=== PATIENT | female | born 1960 | race Caucasian/White ===

== ENCOUNTER 2019-09-03 11:21 | Outpatient (CLI) | payer OTHER, SELFPAY ==
[2019-09-03 12:03] LABS: Basophils Absolute Auto 0.05 K/mm3 (0.00-0.10); Basophils Percent Auto 0.7 % (0.0-1.0); Eosinophils Absolute Auto 0.15 K/mm3 (0.02-0.50); Eosinophils Percent Auto 2.1 % (1.0-6.0); Hematocrit 44.5 % (35.0-49.0); Hemoglobin 15.1 g/dL (12.0-15.0); Immature Granulocyte Absolute 0.02 K/mm3 (0.00-0.00); Immature Granulocyte Percent A 0.3 % (0.0-0.0); Lymphocytes Absolute Auto 3.17 K/mm3 (1.10-4.50); Lymphocytes Percent Auto 44.4 % (18.0-42.0); Mean Corpuscular HGB Conc 33.9 g/dL (32.0-36.0); Mean Corpuscular Hemoglobin 31.3 pg (27.0-31.0); Mean Corpuscular Volume 92.3 fL (78.0-102.0); Mean Platelet Volume 9.8 fl (9.2-11.8); Monocytes Absolute Auto 0.49 K/mm3 (0.10-0.90); Monocytes Percent Auto 6.9 % (2.0-11.0); Neutrophils Absolute Auto 3.3 K/mm3 (1.7-7.2); Neutrophils Percent Auto 45.6 % (50.0-70.0); Platelet Count Result 251 K/mm3 (150-420); Red Blood Count 4.82 M/mm3 (4.20-5.40); Red Cell Distribution Width 11.6 % (11.6-14.4); White Blood Count 7.1 K/mm3 (4.8-10.8)
[2019-09-03 12:10] LABS: Creatinine Urine 196.84 mg/dL (40-278)
[2019-09-03 12:13] LABS: Hemoglobin A1C 10.4 % (<5.7)
[2019-09-03 12:14] LABS: MALB Creatinine Ratio 5.5 mg/g (0-30); Microalbumin Urine Random 10.9 mg/L
[2019-09-03 13:35] LABS: Alanine Aminotransferase 35 U/L (14-59); Albumin Level 3.8 g/dL (3.4-5.0); Alkaline Phosphatase 81 U/L (46-116); Anion Gap 11.1 mmol/L (7-16); Aspartate Amino Transferase 42 U/L (15-37); Bilirubin,Total 0.5 mg/dL (0.00-1.00); Blood Urea Nitrogen 10 mg/dL (7-18); Carbon Dioxide 31 mmol/L (21-32); Chloride 100 mmol/L (98-108); Estimated Glomerular Filt Rate > 60; Glucose 196 mg/dL (70-99); Osmolality Calculated 290 mOsm/kg (285-295); Potassium 4.1 mmol/L (3.5-5.1); Sodium 138 mmol/L (136-145); Total Protein 7.1 g/dL (6.4-8.2); Vitamin B12 371 pg/mL (193-986)
== END 2019-09-03 11:22 | disposition home or self-care (01) ==
PROVIDERS: PCP Family Medicine; Visit Provider Family Medicine
DX: E78.2 Mixed hyperlipidemia (principal); E11.65 Type 2 diabetes mellitus with hyperglycemia; M06.9 Rheumatoid arthritis, unspecified
CPT/HCPCS: 36415; 80053; 82043; 82607; 83036; 85025

== ENCOUNTER 2020-05-30 10:30 | Outpatient (CLI) | payer OTHER, SELFPAY | END 2020-05-30 10:31 | disposition home or self-care (01) | LOC: ANHCOVIDVC 10:31 | PROVIDERS: PCP Family Medicine | DX: Z23 Encounter for immunization (principal) | CPT/HCPCS: 0001A; 91300 ==

== ENCOUNTER 2020-06-20 10:30 | Outpatient (CLI) | payer OTHER, SELFPAY | END 2020-06-20 10:31 | disposition home or self-care (01) | LOC: ANHCOVIDVC 10:30 | PROVIDERS: PCP Family Medicine | DX: Z23 Encounter for immunization (principal) | CPT/HCPCS: 0002A; 91300 ==

== ENCOUNTER 2020-10-14 11:41 | Outpatient (CLI) | payer OTHER, SELFPAY ==
[2020-10-14 11:59] LABS: Basophils Absolute Auto 0.06 K/mm3 (0.00-0.10); Basophils Percent Auto 0.7 % (0.0-1.0); Eosinophils Absolute Auto 0.15 K/mm3 (0.02-0.50); Eosinophils Percent Auto 1.8 % (1.0-6.0); Hematocrit 47.4 % (35.0-49.0); Hemoglobin 15.8 g/dL (12.0-15.0); Immature Granulocyte Absolute 0.04 K/mm3 (0.00-0.00); Immature Granulocyte Percent A 0.5 % (0.0-0.0); Lymphocytes Absolute Auto 3.98 K/mm3 (1.10-4.50); Lymphocytes Percent Auto 48.5 % (18.0-42.0); Mean Corpuscular HGB Conc 33.3 g/dL (32.0-36.0); Mean Corpuscular Hemoglobin 31.2 pg (27.0-31.0); Mean Corpuscular Volume 93.7 fL (78.0-102.0); Mean Platelet Volume 9.2 fl (9.2-11.8); Monocytes Absolute Auto 0.53 K/mm3 (0.10-0.90); Monocytes Percent Auto 6.5 % (2.0-11.0); Neutrophils Absolute Auto 3.5 K/mm3 (1.7-7.2); Platelet Count Result 238 K/mm3 (150-420); Red Blood Count 5.06 M/mm3 (4.20-5.40); Red Cell Distribution Width 11.9 % (11.6-14.4); White Blood Count 8.2 K/mm3 (4.8-10.8)
[2020-10-14 12:09] LABS: Creatinine Urine 132.25 mg/dL (40-278); MALB Creatinine Ratio 13.4 mg/g (0-30); Microalbumin Urine Random 17.8 mg/L
[2020-10-14 12:11] LABS: Hemoglobin A1C 8.1 % (<5.7)
[2020-10-14 12:31] LABS: Alanine Aminotransferase 23 U/L (14-59); Albumin Level 3.9 g/dL (3.4-5.0); Alkaline Phosphatase 75 U/L (46-116); Anion Gap 11 mmol/L (8-16); Aspartate Amino Transferase 16 U/L (15-37); Bilirubin,Total 0.4 mg/dL (0.00-1.00); CRP 1.1 mg/dL (0.0-0.9); Calcium 9.2 mg/dL (8.5-10.1); Carbon Dioxide 29 mmol/L (21-32); Chloride 103 mmol/L (98-108); Cholesterol 187 mg/dL (0-200); Estimated Glomerular Filt Rate > 60; Glucose 167 mg/dL (70-99); HDL Direct 64 mg/dL (40-60); LDL Cholesterol Calculated 98 mg/dL (<130); Potassium 4.3 mmol/L (3.5-5.1); Sodium 143 mmol/L (136-145); Total Protein 7.2 g/dL (6.4-8.2); Triglycerides 125 mg/dL (0-150)
[2020-10-14 12:47] LABS: Blood Urea Nitrogen 14 mg/dL (7-18); Osmolality Calculated 300 mOsm/kg (285-295)
[2020-10-14 14:55] LABS: Erythrocyte Sedimentation Rate 15 mm/hr (0-20)
== END 2020-10-14 11:42 | disposition home or self-care (01) ==
PROVIDERS: PCP Family Medicine
DX: M06.09 Rheumatoid arthritis without rheumatoid factor, multiple sites (principal); Z79.899 Other long term (current) drug therapy; E11.65 Type 2 diabetes mellitus with hyperglycemia
CPT/HCPCS: 36415; 80053; 80061; 82043; 83036; 85025; 85652; 86140

== ENCOUNTER 2021-02-24 13:02 | Outpatient (CLI) | payer OTHER, SELFPAY ==
--- NOTE | ~2021-02-24 | XR_ITS ---
EXAMINATION: XR hip BI 2V w AP pelvis EXAM DATE: 02/24/2021 13:56 INDICATION: Pain in hips for years. TECHNIQUE: Each hip imaged independently (separate right and also left hip) 'frog leg' and frontal p rojections for interpretation. Frontal projection pelvis. Comparison is made to prior examination fr 10/31/2014. FINDINGS: No radiographic evidence of hip avascular necrosis. There is mild to moderate symmetric bi lateral hip arthritis . Lumbosacral fusion hardware. There are no acute fractures identified. IMPRESSION: Mild to moderate bilateral hip arthritis. Reviewed, dictated and finalized at location A. 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
--- NOTE | ~2021-02-24 | XR_ITS ---
EXAMINATION: XR shoulder LT min 2V DATE: 02/24/2021 13:57 INDICATION: Left shoulder pain TECHNIQUE: AP internally and externally rotated, AP oblique externally rotated and transscapular Y vi ews of the left shoulder were obtained. COMPARISON: None FINDINGS: Normal alignment. No fracture. Mild glenohumeral osteoarthritis with mild cephalad predominant nonun iform joint space narrowing. Moderate left acromioclavicular osteoarthritis. Partially visualized pos terior spinal fusion with bilateral vertical darwin and pedicle screw fixation beginning in the lower th oracic spine and extending cephalad beyond the inferior margin of the [id number]. Soft tissues are unremarkable. Visualized portions of the lungs are clear. IMPRESSION: Mild glenohumeral and moderate acromioclavicular osteoarthritis. Reviewed, dictated and finalized at location B. 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
[2021-02-24 13:17] LABS: Basophils Absolute Auto 0.05 K/mm3 (0.00-0.10); Basophils Percent Auto 0.7 % (0.0-1.0); Eosinophils Absolute Auto 0.07 K/mm3 (0.02-0.50); Eosinophils Percent Auto 0.9 % (1.0-6.0); Hematocrit 46.2 % (35.0-49.0); Hemoglobin 15.9 g/dL (12.0-15.0); Immature Granulocyte Absolute 0.03 K/mm3 (0.00-0.00); Immature Granulocyte Percent A 0.4 % (0.0-0.0); Lymphocytes Absolute Auto 3.33 K/mm3 (1.10-4.50); Lymphocytes Percent Auto 43.5 % (18.0-42.0); Mean Corpuscular HGB Conc 34.4 g/dL (32.0-36.0); Mean Corpuscular Hemoglobin 31.9 pg (27.0-31.0); Mean Corpuscular Volume 92.6 fL (78.0-102.0); Monocytes Absolute Auto 0.49 K/mm3 (0.10-0.90); Monocytes Percent Auto 6.4 % (2.0-11.0); Neutrophils Absolute Auto 3.7 K/mm3 (1.7-7.2); Neutrophils Percent Auto 48.1 % (50.0-70.0); Platelet Count Result 253 K/mm3 (150-420); Red Blood Count 4.99 M/mm3 (4.20-5.40); Red Cell Distribution Width 11.8 % (11.6-14.4); White Blood Count 7.7 K/mm3 (4.8-10.8)
[2021-02-24 13:44] LABS: Hemoglobin A1C 7.9 % (<5.7)
[2021-02-24 14:13] LABS: Alanine Aminotransferase 19 U/L (14-59); Albumin Level 3.8 g/dL (3.4-5.0); Alkaline Phosphatase 74 U/L (46-116); Anion Gap 11 mmol/L (8-16); Aspartate Amino Transferase 12 U/L (15-37); Bilirubin,Total 0.8 mg/dL (0.00-1.00); Blood Urea Nitrogen 14 mg/dL (7-18); Carbon Dioxide 30 mmol/L (21-32); Chloride 101 mmol/L (98-108); Cholesterol 190 mg/dL (0-200); Estimated Glomerular Filt Rate > 60; Glucose 158 mg/dL (70-99); HDL Direct 58 mg/dL (40-60); LDL Cholesterol Calculated 98 mg/dL (<130); Osmolality Calculated 297 mOsm/kg (285-295); Potassium 4.1 mmol/L (3.5-5.1); Sodium 142 mmol/L (136-145); Total Protein 7.2 g/dL (6.4-8.2); Triglycerides 171 mg/dL (0-150)
== END 2021-02-24 13:03 | disposition home or self-care (01) ==
LOC: CHSLAB 13:05
PROVIDERS: PCP Family Medicine; Visit Provider Physician Assistant Medical
DX: M25.512 Pain in left shoulder (principal); M25.551 Pain in right hip; M25.552 Pain in left hip; E11.9 Type 2 diabetes mellitus without complications; E11.65 Type 2 diabetes mellitus with hyperglycemia; E78.2 Mixed hyperlipidemia; Z79.899 Other long term (current) drug therapy
CPT/HCPCS: 36415; 73030; 73521; 80053; 80061; 83036; 85025

== ENCOUNTER 2021-07-04 13:04 | Outpatient (CLI) | payer OTHER, SELFPAY ==
--- NOTE | ~2021-07-04 | XR_ITS ---
EXAMINATION: XR shoulder RT min 2V DATE: 07/04/2021 13:40 INDICATION: Right shoulder pain. TECHNIQUE: 4 views of right shoulder were obtained. COMPARISON: None. FINDINGS: Bone alignment is normal. No fracture. There is mild osteoarthritis of glenohumeral joint a nd severe osteoarthritis of acromioclavicular joint. There are changes of posterior fusion procedure in thoracic spine. IMPRESSION: 1. Polyarticular osteoarthritis. Reviewed, dictated and finalized at location A.
[2021-07-04 13:34] LABS: Hemoglobin A1C 7.4 % (<5.7)
[2021-07-04 13:58] LABS: Alanine Aminotransferase 18 U/L (14-59); Albumin Level 3.9 g/dL (3.4-5.0); Alkaline Phosphatase 75 U/L (46-116); Anion Gap 9 mmol/L (8-16); Aspartate Amino Transferase 15 U/L (15-37); Bilirubin,Total 0.6 mg/dL (0.00-1.00); Blood Urea Nitrogen 15 mg/dL (7-18); Calcium 9.1 mg/dL (8.5-10.1); Carbon Dioxide 30 mmol/L (21-32); Chloride 102 mmol/L (98-108); Cholesterol 200 mg/dL (0-200); Estimated Glomerular Filt Rate > 60; Glucose 138 mg/dL (70-99); HDL Direct 59 mg/dL (40-60); LDL Cholesterol Calculated 108 mg/dL (<130); Osmolality Calculated 294 mOsm/kg (285-295); Potassium 4.1 mmol/L (3.5-5.1); Sodium 141 mmol/L (136-145); Total Protein 7.3 g/dL (6.4-8.2); Triglycerides 166 mg/dL (0-150)
== END 2021-07-04 13:05 | disposition home or self-care (01) ==
PROVIDERS: PCP Physician Assistant Medical; Visit Provider Physician Assistant Medical
DX: M06.09 Rheumatoid arthritis without rheumatoid factor, multiple sites (principal); M25.511 Pain in right shoulder; E11.65 Type 2 diabetes mellitus with hyperglycemia; E78.2 Mixed hyperlipidemia
CPT/HCPCS: 36415; 73030; 80053; 80061; 83036

== ENCOUNTER → 2021-09-24 10:10 | Outpatient (CLI) | payer OTHER, SELFPAY ==
--- NOTE | ~2021-09-24 | CT_ITS ---
EXAMINATION: CT cervical spine wo con DATE: 09/24/2021 10:43 INDICATION: Weakness. TECHNIQUE: Computed tomography (CT) of the cervical spine was performed without intravenous contrast. Automated exposure control and iterative reconstruction technique were employed. The dose-length pro duct was 275.14 mGy-cm. COMPARISON: None FINDINGS: Straightening of the normal cervical lordosis. Vertebral body heights are normal. No fracture. Modera te disc height loss with small degenerative endplate osteophytes and severe bilateral uncovertebral o steoarthritis at C5-C6 and C6-C7. Mild disc height loss at C2-C3 and C4-C5. Multilevel bilateral mode rate to severe facet osteoarthritis. Mild to moderate uncovertebral osteoarthritis at the remaining c ervical levels. Together this contributes to moderate neural foraminal stenosis bilaterally at C5-C6 and mild neural foraminal stenosis at a few of the remaining levels on the left and right. Posterior disc osteophyte complexes result in mild central canal stenosis at C5-C6 and C6-C7. Cervical soft tis sues are unremarkable. Visualized portions of the mastoid air cells, trachea and apices of the lungs are clear. IMPRESSION: 1. Moderate cervical spondylosis. Reviewed, dictated and finalized at location A.
--- NOTE | ~2021-09-24 | CT_ITS ---
EXAMINATION: CT soft tissue neck wo con DATE: 09/24/2021 10:42 INDICATION: Localized swelling, mass, lump, left supraclavicular area TECHNIQUE: Computed tomography (CT) of the neck was performed without intravenous contrast. Automated exposure control and iterative reconstruction technique were employed. Exam dose: 386.39 mGy-cm tot al exam DLP. COMPARISON: None FINDINGS: No cervical mass lesion or lymphadenopathy is detected. No supraclavicular soft tissue mass lesion. Symmetric parotid and submandibular glands without evidence of mass lesion. Normal size and homogeneous attenuation of the thyroid gland. No superior or right paratracheal mass lesion or lympha denopathy is noted. The anterior aortic arch measures 3.4 cm diameter, mildly dilated. The mid aortic arch measures 2.8 c m, within normal range. Included upper lung zones are clear. There is straightening of the cervical spine which may be due to positioning or muscle spasm. There is severe degenerative disc disease at C5-6 and C6-7. There is degenerative change at the apoph yseal joints throughout the cervical spine. There is no prevertebral soft tissue swelling. The trache al air column is patent. IMPRESSION: No cervical or supraclavicular mass lesion or lymphadenopathy Reviewed, dictated and finalized at Location A. Reviewed, dictated and finalized at location A.
--- NOTE | ~2021-09-24 | CT_ITS ---
EXAMINATION: CT BRAIN W/O DATE: 09/24/2021 10:43 INDICATION: Weakness. Diabetes. Hypertension. TECHNIQUE: Computed tomography (CT) of the head was performed without intravenous contrast. The dose- length product was 524.62 mGy-cm. Automated exposure control and iterative reconstruction technique w ere employed. COMPARISON: No prior studies for comparison. FINDINGS: Mild generalized atrophy. There are scattered mild periventricular and subcortical white matter cordova es, most likely related to small vessel ischemic disease (microangiopathy). No ventriculomegaly or mi dline shift. Basilar cisterns are patent. Chronic left lacunar infarction of the internal capsule. Th ere is intracranial atherosclerosis. No ventriculomegaly or midline shift. Midline sagittal images demonstrate a normal corpus callosum, c raniovertebral junction and sella turcica. Basilar cisterns are patent. Paranasal sinuses and mastoids are pneumatized. No depressed skull fractures. IMPRESSION: 1. No acute intracranial abnormality. 2: Chronic left lacunar infarction. 3: Chronic age-related findings. Reviewed, dictated and finalized at location A.
== END ==
PROVIDERS: PCP Family Medicine; Visit Provider Family Medicine
DX: R22.1 Localized swelling, mass and lump, neck (principal); E11.65 Type 2 diabetes mellitus with hyperglycemia; R29.818 Other symptoms and signs involving the nervous system; R53.1 Weakness; M47.892 Other spondylosis, cervical region
CPT/HCPCS: 70450; 70490; 72125

== ENCOUNTER → 2021-10-14 14:39 | Outpatient (CLI) | payer OTHER, SELFPAY ==
--- NOTE | ~2021-10-14 | XR_ITS ---
XR foot RT min 3V DATE: 10/14/2021 15:06 INDICATION: Right foot pain. Rheumatoid arthritis. TECHNIQUE: 4 views COMPARISON: None FINDINGS: There is diffuse osteopenia. Prominent plantar calcaneal enthesopathy. Mild hallux valgus and bunion deformity. Mild osteoarthritis at the first metatarsophalangeal joint. No fracture, dislocation, periosteal reaction or bone destruction is detected. IMPRESSION: Osteopenia Prominent plantar calcaneal enthesopathy Mild hallux valgus and bunion deformity Mild osteophyte is at first metatarsophalangeal joint Reviewed, dictated and finalized at location A.
--- NOTE | ~2021-10-14 | XR_ITS ---
XR foot LT min 3V DATE: 10/14/2021 15:06 INDICATION: Foot pain. Rheumatoid arthritis. TECHNIQUE: 4 views COMPARISON: None FINDINGS: There is diffuse osteopenia. Prominent hallux valgus and bunion deformity. There is osteoarthritis of mild degree at the first metatarsophalangeal joint Prominent plantar and minimal posterior calcaneal enthesopathy, without associated erosive change or periostitis. No fracture or dislocation, periosteal reaction or bone destruction. There is soft tissue swelling of the foot. IMPRESSION: Soft tissue swelling Osteopenia Prominent hallux valgus and bunion deformity Prominent plantar and minimal posterior calcaneal enthesopathy Mild osteoarthritis at first metatarsophalangeal joint Reviewed, dictated and finalized at location A.
== END ==
PROVIDERS: PCP Family Medicine
DX: M06.09 Rheumatoid arthritis without rheumatoid factor, multiple sites (principal); M85.872 Other specified disorders of bone density and structure, left ankle and foot; M77.32 Calcaneal spur, left foot; M19.072 Primary osteoarthritis, left ankle and foot; M85.871 Other specified disorders of bone density and structure, right ankle and foot; M77.31 Calcaneal spur, right foot
CPT/HCPCS: 73630

== ENCOUNTER 2022-04-23 15:03 | Emergency (ER) | payer OTHER, SELFPAY ==
[2022-04-23 15:20] VITALS: BP 132/92; PULSE 79; RESP 16; TEMP 36.4; O2SAT 98
[2022-04-23 15:23] VITALS: BP 132/92; PULSE 79; RESP 16; TEMP 36.4; O2SAT 98
--- NOTE | 2022-04-23 16:07 | ED.BACK ---
HPI - Back Pain/Injury General Chief Complaint: Abdominal Pain Stated Complaint: BACK PAIN/ABD PAIN Time Seen by Provider: 04/23/22 15:51 Source: patient Mode of arrival: ambulatory Limitations: no limitations History of Present Illness HPI Narrative: Patient presents today complaining of 2 days history of right mid to low back pain radiating to the right lateral rib area. Patient has history of scoliosis, lumbar spinal stenosis, and rods in lumbar spine. History of diabetes, rheumatoid arthritis, osteoarthritis, and right-sided stroke with left-sided weakness, cholecystectomy. She does have tramadol that she takes at home for chronic pain and has been using heat without much relief. She currently rates her pain 9/10. Denies numbness or tingling extremities. Denies loss of bowel or bladder control. Patient has been busy moving heavy boxes and cleaning out her [id number] home that recently . The back pain has been keeping her awake at night. Related Data Home Medications Medication Instructions Recorded Confirmed tramadol 50 mg tablet 50 mg PO Q6H PRN Pain (Scale Score 03/12/19 04/23/22 4-6) abatacept 125 mg/mL subcutaneous 125 mg subcut WEEKLY 03/04/21 04/23/22 auto-injector (Orencia ClickJect) acetaminophen 650 mg 650 mg PO Q12H PRN Pain (Scale 07/07/21 04/23/22 tablet,extended release (Tylenol Score 1-3) Arthritis Pain) lifitegrast 5 % eye drops in a 1 drp EACH EYE BID 07/07/21 04/23/22 dropperette (Xiidra) lifitegrast 5 % eye drops in a drp 04/23/22 dropperette (Xiidra) Allergies Allergy/AdvReac Type Severity Reaction Status Date / Time erythromycin base Allergy Mild UNKNOWN Verified 04/23/22 15:17 lisinopril Allergy Unknown cough Verified 04/23/22 15:17 metformin Allergy Unknown Nausea Verified 04/23/22 15:17 Review of Systems Review of Systems: CONSTITUTIONAL: Denies body aches, fever, chills, or sweats. EYES: Denies visual changes, redness, or discharge. ENT: Denies rhinorrhea, congestion, sore throat, or otalgia. CARDIOVASCULAR: Denies chest pain, palpitations, or edema. RESPIRATORY: Denies cough or dyspnea. GASTROINTESTINAL: Denies abdominal pain, nausea, vomiting, or diarrhea. GENITOURINARY: Denies dysuria or hematuria. SKIN: Denies rash, itching, or wounds. MUSCULOSKELETAL: Denies joint pain, or myalgia.+ back pain, rib pain NEUROLOGIC: Denies headache, numbness, tingling, or weakness. PSYCH: Denies depression or anxiety. [facility] Past Medical History Medical History Chronic rhinitis Closed displaced fracture of fifth metatarsal bone of right foot Family History Family History Grandparent Diabetes mellitus Family history of arthritis Family history of condition Family history of cardiovascular disease Mother Diabetes mellitus Father Family history of lymphoma Social History Social History Smoking status: Never smoker Alcohol intake: never Comments At time of signature, I have reviewed and agree with nursing past medical, surgical, social and family history unless otherwise noted. Please see nursing chart for further information. There is no relevant family history pertinent to the presenting complaint Exam Narrative: GENERAL: Chronically ill-appearing, well-nourished, and in no acute distress. HEAD: Normocephalic, atraumatic. EYES: EOMI. No redness or drainage. Conjunctivae normal. ENT: Mucous membranes pink and moist. NECK: Normal AROM. CHEST: No respiratory distress. Clear to auscultation. Tenderness to the right lateral ribs. No deformity or crepitus noted. HEART: Regular rate and rhythm. No murmur appreciated. Normal peripheral pulses. ABDOMEN: Soft, nontender, nondistended, normal active bowel sounds. MUSCULOSKELETAL: No bony tenderness of the spine. Larg
== END 2022-04-23 16:17 | disposition home or self-care (01) ==
PROVIDERS: Emergency Provider Nurse Practitioner; PCP Family Medicine
DX: S39.012A Strain of muscle, fascia and tendon of lower back, initial encounter (principal); X50.3XXA Overexertion from repetitive movements, initial encounter; M41.9 Scoliosis, unspecified; M48.061 Spinal stenosis, lumbar region without neurogenic claudication; E11.9 Type 2 diabetes mellitus without complications; M06.9 Rheumatoid arthritis, unspecified; I69.354 Hemiplegia and hemiparesis following cerebral infarction affecting left non-dominant side
CPT/HCPCS: 99213; G0463

== ENCOUNTER 2022-04-26 08:12 | Emergency (ER) | payer OTHER, SELFPAY ==
[2022-04-26 08:12] VITALS: BP 173/94; PULSE 97; RESP 18; TEMP 36.1; O2SAT 96
[2022-04-26 08:15] VITALS: BP 173/94; PULSE 97; RESP 18; TEMP 36.1; O2SAT 96
--- NOTE | 2022-04-26 08:34 | ED.GENADULT ---
HPI - General Adult General Chief complaint: Back Pain/Injury Stated complaint: back pain; skin lesions Time Seen by Provider: 04/26/22 08:19 History of Present Illness HPI narrative: The patient is a 61-year-old woman with multiple comorbidities including diabetes, rheumatoid arthritis for which she takes weekly injections, hyperlipidemia, obesity, scoliosis, spinal stenosis, GERD, asthma, and depression. She takes tramadol 2 tablets 50 mg each twice daily routinely for pain from her rheumatoid arthritis scoliosis and spinal stenosis. For the last week, the patient has had mid thoracic posterior back pain that radiates anteriorly under the right breast. She has noticed a skin rash 1 week ago posteriorly and her mid thoracic back area which is now also radiating in a dermatomal pattern anteriorly in the inframammary region. The pain is different than her usual back pain. She has had an episode of nausea yesterday and today. She went to urgent care recently and was prescribed a muscle relaxer, cyclobenzaprine, as needed. Despite cyclobenzaprine and tramadol, the pain continues. She has had insomnia due to the pain. She presents for further management. She denies any URI or UTI symptoms. No vomiting, no abdominal pain. No chest pain besides the right-sided dermatomal pain. No fevers or chills. No dyspnea. No other complaints. Related Data Home Medications Medication Instructions Recorded Confirmed tramadol 50 mg tablet 50 mg PO Q6H PRN Pain (Scale Score 03/12/19 04/26/22 4-6) abatacept 125 mg/mL subcutaneous 125 mg subcut WEEKLY 03/04/21 04/26/22 auto-injector (Orencia ClickJect) acetaminophen 650 mg 650 mg PO Q12H PRN Pain (Scale 07/07/21 04/26/22 tablet,extended release (Tylenol Score 1-3) Arthritis Pain) lifitegrast 5 % eye drops in a 1 drp EACH EYE BID 07/07/21 04/26/22 dropperette (Xiidra) lifitegrast 5 % eye drops in a drp 04/23/22 dropperette (Xiidra) Allergies Allergy/AdvReac Type Severity Reaction Status Date / Time erythromycin base Allergy Mild UNKNOWN Verified 04/26/22 08:27 lisinopril Allergy Unknown cough Verified 04/26/22 08:27 metformin Allergy Unknown Nausea Verified 04/26/22 08:27 Review of Systems Review of Systems: All systems reviewed & are unremarkable except as noted in HPI and below Constitutional: Constitutional: Reports no additional constitutional complaints, Denies anorexia, Denies body ache(s), Denies chills, Denies excessive sweating, Denies fatigue, Denies fever(s), Denies frequent falls, Denies headache(s), Denies malaise and Denies poor appetite Eyes: Eyes: Reports no additional eye complaints, Denies blurry vision, Denies change in vision, Denies irritation, Denies itchy eyes and Denies photophobia ENT: Reports system reviewed and no additional complaints, except as documented, Reports Normal hearing present, Denies change in voice, Denies dysphagia, Denies vertigo, Denies dizziness, Denies ear discharge, Denies headache(s), Denies hearing loss, Denies hoarseness, Denies nasal congestion, Denies neck pain, Denies sinus pressure, Denies sore throat and Denies throat swelling Cardiovascular: Cardiovascular: Reports no additional cardiovascular complaints, Denies chest pain, Denies syncope, Denies rapid heart rate, Denies irregular heart rhythm, Denies leg edema, Denies dyspnea and Denies slow heart rate Respiratory: Respiratory: Reports no additional respiratory complaints, Denies cough, Denies dyspnea, Denies stridor and Denies wheezing Gastrointestinal: Gastrointestinal: Reports no additional gastrointestinal complaints, Denies abdominal pain, Denies melena, Denies hematochezia, Denies dysphagia, Denies diarrhea, Reports nausea and Denies vomiting Genitourinary: Genitourinary: Denies hematuria, Denies urinary frequency, Denies dysuria, Denies flank pain and Denies urinary urgency Musculoskeletal: Musculoskeletal: Reports no additional musculoskeletal complaints, Denies abn
[2022-04-26] MEDS: HYDROcodone/acetaminophen (*CRX) 5-325 MG TABLET 1 TAB PO (08:44)
== END 2022-04-26 08:50 | disposition home or self-care (01) ==
PROVIDERS: Emergency Provider Emergency Medicine; PCP Family Medicine
DX: B02.9 Zoster without complications (principal); E11.9 Type 2 diabetes mellitus without complications; M06.9 Rheumatoid arthritis, unspecified; E78.5 Hyperlipidemia, unspecified; J45.909 Unspecified asthma, uncomplicated; F32.A Depression, unspecified; Z79.891 Long term (current) use of opiate analgesic
CPT/HCPCS: 99283; A9270

== ENCOUNTER 2022-07-08 14:33 | Outpatient (CLI) | payer OTHER, SELFPAY ==
[2022-07-08 14:58] LABS: Basophils Absolute Auto 0.06 K/mm3 (0.00-0.10); Basophils Percent Auto 0.7 % (0.0-1.0); Eosinophils Percent Auto 1.2 % (1.0-6.0); Hemoglobin 15.3 g/dL (12.0-15.0); Immature Granulocyte Absolute 0.04 K/mm3 (0.00-0.00); Immature Granulocyte Percent A 0.5 % (0.0-0.0); Lymphocytes Absolute Auto 2.69 K/mm3 (1.10-4.50); Lymphocytes Percent Auto 32.3 % (18.0-42.0); Mean Corpuscular Hemoglobin 31.9 pg (27.0-31.0); Mean Corpuscular Volume 93.8 fL (78.0-102.0); Mean Platelet Volume 9.2 fl (9.2-11.8); Monocytes Absolute Auto 0.49 K/mm3 (0.10-0.90); Monocytes Percent Auto 5.9 % (2.0-11.0); Neutrophils Percent Auto 59.4 % (50.0-70.0); Platelet Count Result 245 K/mm3 (150-420); Red Cell Distribution Width 11.9 % (11.6-14.4); White Blood Count 8.3 K/mm3 (4.8-10.8)
[2022-07-08 15:11] LABS: Hemoglobin A1C 8.3 % (<5.7)
[2022-07-08 16:00] LABS: Alanine Aminotransferase 17 U/L (14-59); Albumin Level 3.9 g/dL (3.4-5.0); Alkaline Phosphatase 75 U/L (46-116); Anion Gap 7 mmol/L (8-16); Aspartate Amino Transferase 15 U/L (15-37); Bilirubin,Total 0.7 mg/dL (0.00-1.00); Blood Urea Nitrogen 13 mg/dL (7-18); Calcium 9.3 mg/dL (8.5-10.1); Carbon Dioxide 30 mmol/L (21-32); Chloride 101 mmol/L (98-108); Cholesterol 184 mg/dL (0-200); Estimated Glomerular Filt Rate > 60; Glucose 155 mg/dL (70-99); HDL Direct 61 mg/dL (40-60); LDL Cholesterol Calculated 95 mg/dL (<130); Osmolality Calculated 289 mOsm/kg (285-295); Potassium 3.8 mmol/L (3.5-5.1); Sodium 138 mmol/L (136-145); Thyroid Stimulating Hormone 2.28 uIU/mL (0.36-3.74); Total Protein 7.3 g/dL (6.4-8.2); Triglycerides 141 mg/dL (0-150)
== END 2022-07-08 14:34 | disposition home or self-care (01) ==
LOC: CHSLAB 14:34
PROVIDERS: PCP Family Medicine; Visit Provider Physician Assistant
DX: Z79.899 Other long term (current) drug therapy (principal); M06.9 Rheumatoid arthritis, unspecified; K21.9 Gastro-esophageal reflux disease without esophagitis; E78.2 Mixed hyperlipidemia; E11.65 Type 2 diabetes mellitus with hyperglycemia; E66.9 Obesity, unspecified
CPT/HCPCS: 36415; 80053; 80061; 83036; 84443; 85025

== ENCOUNTER 2022-10-08 14:44 | Outpatient (CLI) | payer OTHER, SELFPAY ==
[2022-10-08 15:07] LABS: Appearance Urine Clear (Clear); Bilirubin Urine Negative (Negative); Blood Urine Trace-Intact (Negative); Color Urine Light Yellow (Yellow); Glucose Urine UA 3+ (Negative); Ketones Urine Negative (Negative); Leukocyte Esterase Ur Negative LEU/UL (Negative); Nitrate Urine Negative (Negative); Protein Urine Negative (Negative); Urobilinogen Urine 0.2 mg/dL (0.2-1.0); pH Urine 5.5 (5.0-8.0)
[2022-10-08 15:25] LABS: Creatinine Urine 51.39 mg/dL (40-278); MALB Creatinine Ratio 25.2 mg/g (0-30); Microalbumin Urine Random < 13.0 mg/L
[2022-10-08 15:28] LABS: Hemoglobin A1C 8.2 % (<5.7)
[2022-10-08 15:34] LABS: Alanine Aminotransferase 12 U/L (14-59); Albumin Level 3.8 g/dL (3.4-5.0); Alkaline Phosphatase 75 U/L (46-116); Anion Gap 6 mmol/L (8-16); Aspartate Amino Transferase 12 U/L (15-37); Bilirubin,Total 0.5 mg/dL (0.00-1.00); Blood Urea Nitrogen 15 mg/dL (7-18); Calcium 9.3 mg/dL (8.5-10.1); Carbon Dioxide 33 mmol/L (21-32); Chloride 103 mmol/L (98-108); Cholesterol 176 mg/dL (0-200); Estimated Glomerular Filt Rate > 60; Glucose 173 mg/dL (70-99); HDL Direct 55 mg/dL (40-60); LDL Cholesterol Calculated 94 mg/dL (<130); Osmolality Calculated 298 mOsm/kg (285-295); Potassium 4.1 mmol/L (3.5-5.1); Sodium 142 mmol/L (136-145); Triglycerides 137 mg/dL (0-150)
[2022-10-08 15:35] LABS: Add Urine Microscopic? YES; Bacteria Urine 1+ /hpf; RBC Urine 0-2 /hpf (0-2); Squamous Epithelial Cell Urine Few /hpf (Few)
== END 2022-10-08 14:45 | disposition home or self-care (01) ==
LOC: CHSLAB 14:46
PROVIDERS: Nurse Practitioner Family; PCP Family Medicine; Visit Provider Family Medicine
DX: N39.0 Urinary tract infection, site not specified (principal); E11.65 Type 2 diabetes mellitus with hyperglycemia
CPT/HCPCS: 36415; 80053; 80061; 81001; 82043; 83036

== ENCOUNTER 2022-10-13 15:35 | Emergency (ER) | payer OTHER, SELFPAY ==
--- NOTE | ~2022-10-13 | XR_ITS ---
EXAMINATION: XR chest 1V portable DATE: 10/13/2022 16:30 INDICATION: Fever TECHNIQUE: frontal and lateral views of the chest were obtained. COMPARISON: Chest radiograph dated 07/10/15 FINDINGS: The lungs remain clear with no focal airspace opacities, pulmonary edema, pleural effusion or pneumot horax. The cardiomediastinal silhouette is normal. Partially visualized darwin and pedicle screw fixatio n for posterior spinal fusion beginning in the lower thoracic spine extending cephalad beyond the cep halad margin of the [id number] at the thoracolumbar junction. IMPRESSION: 1. No acute cardiopulmonary disease. Reviewed, dictated and finalized at location A.
--- NOTE | ~2022-10-13 | CT_ITS ---
EXAMINATION: CT chest abdomen pelvis w con DATE: 10/13/2022 18:15 CDT INDICATION: Fever. The patient immunocompromised. TECHNIQUE: Computed tomography (CT) of the chest, abdomen, and pelvis was performed with 100 cc Omnip aque 350 intravenous contrast. The dose-length product was 1008.88 mGy-cm. Automated exposure control and iterative reconstruction technique were employed. COMPARISON: Chest x-ray dated 10/13/2022 FINDINGS: CHEST CT: Heart size normal. No significant pleural or pericardial effusion. No endobronchial lesions. There is left lower lobe atelectasis. No thoracic lymphadenopathy. Heart size normal. ABDOMEN/PELVIS CT: Fatty infiltration of the liver. The spleen, pancreas, adrenal glands and kidneys are unremarkable. T here are cholecystectomy clips. No significant vascular abnormality. Nonobstructive bowel gas pattern . Small amount of gas in the bladder lumen. Uterus is atrophic. There is laxity of the anterior abdom inal wall musculature with small fat-containing umbilical hernia. Generalized osteopenia. There are s urgical fusion changes of the lower thoracic and lumbar spine with diffuse demineralization. Multiple screws extend anterior to the vertebral bodies in the lower lumbar spine and sacrum. There is scolio sis. IMPRESSION: 1. Small amount of gas in the bladder lumen which may be due to recent intervention. In the absence o f recent instrumentation of the bladder, consider cystitis. Reviewed, dictated and finalized at location A. IMPRESSION: 1. Small amount of gas in the bladder lumen which may be due to recent interven tion. In the absence of recent instrumentation of the bladder, consider cystiti s.
[2022-10-13 15:45] VITALS: BP 150/70; PULSE 102; RESP 20; TEMP 37.5; O2SAT 94
[2022-10-13 15:49] LABS: Appearance Urine Clear (Clear); Bilirubin Urine Negative (Negative); Color Urine Yellow (Yellow); Glucose Urine UA 3+ (Negative); Ketones Urine Negative (Negative); Leukocyte Esterase Ur Negative LEU/UL (Negative); Nitrate Urine Negative (Negative); Protein Urine Negative (Negative); Specific Grav Ur <= 1.005 (1.010-1.020); Urobilinogen Urine 0.2 mg/dL (0.2-1.0)
[2022-10-13 15:54] LABS: Add Urine Microscopic? YES; Bacteria Urine Trace /hpf; Blood Urine Trace-Lysed (Negative); RBC Urine None seen /hpf (0-2); Squamous Epithelial Cell Urine Few /hpf (Few); WBC Urine 0-3 /hpf (0-3)
--- NOTE | 2022-10-13 15:54 | ED.FEMALEGU ---
HPI - Female Genitourinary General Chief complaint: Unspecified Stated complaint: Urinary problems Source: patient Mode of arrival: ambulatory Limitations: no limitations History of Present Illness HPI Narrative: 62-year-old female with obesity, diabetes mellitus, dyslipidemia, scoliosis, lumbar stenosis, status post rods in the lumbar region, rheumatoid arthritis on a abatacept,shingles, CVA with left-sided weakness was recently treated for urinary tract infection with Bactrim 10/08/2022. Today she presents to the ER with -- fever with a T-max of 101? -- generalized body ache -- nausea with 1 episode of vomiting yesterday -- no dysuria or hematuria MD elicited complaint: back pain Pertinent past history: recurrent UTIs Onset (ago): day(s) ( started 1 day ago) Severity: moderate Vaginal discharge: none Exacerbating factors: none Relieving factors: none Associated symptoms: weakness, fever, nausea and vomiting Treatment prior to arrival: none Related Data Home Medications Medication Instructions Recorded Confirmed tramadol 50 mg tablet 50 mg PO Q6H PRN Pain (Scale Score 03/12/19 10/13/22 4-6) abatacept 125 mg/mL subcutaneous 125 mg subcut WEEKLY 03/04/21 10/13/22 auto-injector (Orencia ClickJect) acetaminophen 650 mg 650 mg PO Q12H PRN Pain (Scale 07/07/21 10/13/22 tablet,extended release (Tylenol Score 1-3) Arthritis Pain) lifitegrast 5 % eye drops in a 1 drp EACH EYE BID 07/07/21 10/13/22 dropperette (Xiidra) cyclobenzaprine 10 mg tablet 10 mg PO TID PRN muscle spasm 06/18/22 10/13/22 Allergies Allergy/AdvReac Type Severity Reaction Status Date / Time erythromycin base Allergy Mild UNKNOWN Verified 06/18/22 14:04 lisinopril Allergy Unknown cough Verified 06/18/22 14:04 metformin Allergy Unknown Nausea Verified 06/18/22 14:04 nitrofurantoin AdvReac Severe Nausea Verified 10/13/22 12:15 [From Macrobid] Review of Systems Review of Systems: All systems reviewed & are unremarkable except as noted in HPI and below Constitutional: Constitutional: Reports as per HPI, Reports no additional constitutional complaints and Reports chills Eyes: Eyes: Reports as per HPI and Reports no additional eye complaints ENT: Reports system reviewed and no additional complaints, except as documented and Reports as per HPI Cardiovascular: Cardiovascular: Reports as per HPI and Reports no additional cardiovascular complaints Respiratory: Respiratory: Reports as per HPI and Reports no additional respiratory complaints Gastrointestinal: Gastrointestinal: Reports as per HPI, Reports no additional gastrointestinal complaints, Reports nausea and Reports vomiting Genitourinary: Genitourinary: Reports no additional female genitourinary complaints Musculoskeletal: Musculoskeletal: Reports no additional musculoskeletal complaints, Reports back pain and Reports arthralgias Integumentary/Breasts: Skin/Breast: Reports system reviewed and no additional complaints, except as docu and Reports as per HPI Neurologic: Reports system reviewed and no additional complaints, except as documented and Reports as per HPI Psychiatric: Psychiatric: Reports no additional psychiatric complaints and Reports as per HPI Endocrine: Endocrine: Reports no additional endocrine complaints and Reports as per HPI Hematologic/Lymphatic: Hematologic/Lymphatic: Reports no additional hematologic/lymphatic complaints and Reports as per HPI Allergic/Immunologic: Allergic/Immunologic: Reports no additional allergic/immunologic complaints and Reports as per HPI [facility] Past Medical History Medical History (Updated 10/13/22 @ 18:50 by Negro Louie MD) Chronic rhinitis Closed displaced fracture of fifth metatarsal bone of right foot Hemiplegia Rheumatoid arthritis Family History Family History Grandparent Diabetes mellitus Family history of arthritis Family history of condition Family
[2022-10-13 16:23] LABS: Basophils Absolute Auto 0.04 K/mm3 (0.00-0.10); Basophils Percent Auto 0.3 % (0.0-1.0); Eosinophils Absolute Auto 0.02 K/mm3 (0.02-0.50); Eosinophils Percent Auto 0.1 % (1.0-6.0); Hematocrit 43.4 % (35.0-49.0); Hemoglobin 14.6 g/dL (12.0-15.0); Immature Granulocyte Absolute 0.05 K/mm3 (0.00-0.00); Immature Granulocyte Percent A 0.3 % (0.0-0.0); Lymphocytes Absolute Auto 0.66 K/mm3 (1.10-4.50); Lymphocytes Percent Auto 4.2 % (18.0-42.0); Mean Corpuscular HGB Conc 33.6 g/dL (32.0-36.0); Mean Corpuscular Hemoglobin 31.9 pg (27.0-31.0); Mean Platelet Volume 9.5 fl (9.2-11.8); Monocytes Percent Auto 2.5 % (2.0-11.0); Neutrophils Absolute Auto 14.7 K/mm3 (1.7-7.2); Neutrophils Percent Auto 92.6 % (50.0-70.0); Platelet Count Result 208 K/mm3 (150-420); Red Blood Count 4.57 M/mm3 (4.20-5.40); Red Cell Distribution Width 11.9 % (11.6-14.4); White Blood Count 15.9 K/mm3 (4.8-10.8)
[2022-10-13 16:34] LABS: Glucose Point of Care 175 mg/dl (65-105)
[2022-10-13 16:42] LABS: Lactic Acid Reflex 1.9 mmol/L (0.4-2.0)
[2022-10-13 16:51] LABS: Alanine Aminotransferase 29 U/L (14-59); Albumin Level 3.6 g/dL (3.4-5.0); Alkaline Phosphatase 80 U/L (46-116); Anion Gap 10 mmol/L (8-16); Aspartate Amino Transferase 31 U/L (15-37); Bilirubin,Total 0.8 mg/dL (0.00-1.00); Blood Urea Nitrogen 10 mg/dL (7-18); Calcium 9.1 mg/dL (8.5-10.1); Carbon Dioxide 27 mmol/L (21-32); Chloride 104 mmol/L (98-108); Estimated CRCL calculation 68 ml/min; Estimated Glomerular Filt Rate > 60; Glucose 211 mg/dL (70-99); Osmolality Calculated 297 mOsm/kg (285-295); Sodium 141 mmol/L (136-145); Total Protein 7.3 g/dL (6.4-8.2)
[2022-10-13 17:07] VITALS: BP 148/64; PULSE 94; RESP 20; O2SAT 97
[2022-10-13 17:27] LABS: Influenza A QL RT-PCR Negative (Negative); Influenza B QL RT-PCR Negative (Negative); RSV RNA, RT-PCR Negative (Negative); SARS-CoV-2 RNA PCR Negative (Negative)
[2022-10-13 17:50] VITALS: BP 152/74; PULSE 91; RESP 20; O2SAT 98
[2022-10-13] MEDS: LACTATED RINGERS 1,000 ML 999 ML IV CONT (18:11)
[2022-10-13 19:10] VITALS: BP 138/90; PULSE 90; RESP 20; TEMP 37.2; O2SAT 96
--- NOTE | 2022-10-19 12:46 | PC.NURSE ---
Final blood culture reports: no growth after 5 days, no further treatment or action needed.
--- NOTE | 2022-10-30 12:40 | PC.NURSE ---
final blood cultures x2 reviewed. no growth after 5 days. no change in plan of care.
== END 2022-10-13 19:18 | disposition home or self-care (01) ==
PROVIDERS: Emergency Provider Internal Medicine Critical Care Medicine; PCP Family Medicine
DX: N30.90 Cystitis, unspecified without hematuria (principal); E11.65 Type 2 diabetes mellitus with hyperglycemia; R50.9 Fever, unspecified; E78.5 Hyperlipidemia, unspecified; Z79.891 Long term (current) use of opiate analgesic; Z20.822 Contact with and (suspected) exposure to COVID-19
CPT/HCPCS: 36415; 71045; 71260; 74177; 80053; 81001; 82948; 83605; 85025; 87040; 87637; 96360; 99284; J7120; Q9967

== ENCOUNTER 2022-11-14 13:52 | Outpatient (CLI) | payer OTHER, SELFPAY ==
--- NOTE | ~2022-11-14 | XR_ITS ---
EXAMINATION: XR foot LT min 3V, XR foot RT min 3V DATE: 11/14/2022 14:29 INDICATION: Chronic bilateral foot pain. TECHNIQUE: 1. Weight bearing dorsoplantar, two oblique and lateral views of the left foot were obtained. 2. Weight bearing dorsoplantar, two oblique and lateral views of the right foot were obtained. COMPARISON: 10/14/2021 FINDINGS: Unchanged 40 degree left hallux valgus and left second and third hammertoes. Bilateral pes planus wit h flattening of the longitudinal arch which is slightly more prominent on the left. No fractures iden tified. Polyarticular osteoarthritis, moderate severity at the left first metatarsophalangeal joint a nd mild at the right first metatarsophalangeal and multiple bilateral tarsometatarsal and interphalan geal joints. Large bilateral plantar calcaneal spurs. Small left Achilles calcaneal spur. Soft tissue swelling over the dorsum of both feet. IMPRESSION: 1. Unchanged 40 degrees left hallux valgus and left second and third hammertoes. 2. Bilateral pes planus. 3. Polyarticular osteoarthritis in the bilateral mid and forefeet, moderate severity at the left firs t metatarsophalangeal joint and otherwise mild. Reviewed, dictated and finalized at location A. IMPRESSION: 1. Unchanged 40 degrees left hallux valgus and left second and third hammertoes . 2. Bilateral pes planus. 3. Polyarticular osteoarthritis in the bilateral mid and forefeet, moderate sev erity at the left first metatarsophalangeal joint and otherwise mild.
== END 2022-11-14 13:53 | disposition home or self-care (01) ==
LOC: CHSIMG 13:53
PROVIDERS: PCP Family Medicine; Visit Provider Orthopaedic Surgery
DX: M21.42 Flat foot [pes planus] (acquired), left foot (principal); M21.41 Flat foot [pes planus] (acquired), right foot; M19.072 Primary osteoarthritis, left ankle and foot; M19.071 Primary osteoarthritis, right ankle and foot
CPT/HCPCS: 73630

== ENCOUNTER 2022-12-03 13:56 | Outpatient (CLI) | payer OTHER, SELFPAY ==
--- NOTE | ~2022-12-03 | DEXA_ITS ---
Bone Density Report Name: DHARA HUFF Age: 62 Sex: Female Ethnicity: White Date of : 1960 Indication: postmenopausal; screening for osteoporosis; parental hip fracture; prior fracture; rheumatoid arthritis; Referring Provider: GERALD DIXON Study: Bone densitometry was performed. Exam Date: December 03, 2022 Accession number: [id number] Bone Density: Region BMD T-score Z-score Classification Femoral Neck (Left) 0.758 -0.8 0.7 Normal Total Hip (Left) 0.917 -0.2 1.0 Normal Femoral Neck (Right) 0.660 -1.7 -0.2 Osteopenia Total Hip (Right) 0.890 -0.4 0.8 Normal Femoral Neck Mean 0.709 -1.3 0.2 Osteopenia Total Hip Mean 0.904 -0.3 0.9 Normal World Health Organization criteria for BMD impression classify patients as: Normal (T-score at or above -1.0), Osteopenia (T-score between -1.0 and -2.5), or Osteoporosis (T-score at or below -2.5). 10-year Fracture Risk: FRAX not reported because: Prior hip or vertebral fracture Clinical Information Provided by Patient: Have had a previous hip or vertebral fracture Has had a low trauma fracture Parent has had a hip fracture Has rheumatoid arthritis Has used the following medications: Vitamin D Patient maximum height was 63 Menopause Age: 48 No regular weight bearing exercise Drinks caffeinated beverages Onset of menses at age 11 Number of children 2 Impression: The patient has low bone mass, based on the Right Femoral Neck T-score. The patient has risk factors, including: parental hip fracture, previous fracture. Discussion: INCREASED RISK OF FRACTURE DUE TO HISTORY OF FRACTURE. The patient's previous fracture puts the patient at high risk of a future fracture. In untreated patients, the risk of osteoporotic fracture increases approximately two-fold for each 1.0 SD decrease in T-score. Low bone density is not the only risk factor for fracture; also consider factors such as patient's age, frailty or poor health, risk of falling, risk of injury, previous osteoporotic fracture, family history of osteoporosis, cigarette smoking, low body weight, etc. Not everyone with a low trauma fracture has osteoporosis; osteomalacia and other metabolic bone disorders should also be considered. Patients who have osteoporosis should be evaluated for specific diseases and conditions (secondary causes) that may cause or contribute to bone loss and fracture risk. National Osteoporosis Foundation (NOF) recommends pharmacologic intervention for patients with a prior hip or vertebral fracture regardless of BMD T-score. The patient should follow a healthful lifestyle (good nutrition with adequate calcium and vitamin D, and appropriate weight-bearing exercise). Follow-Up: Consider a repeat BMD and Vertebral Fracture Assessment (VFA) exam in 2 years or sooner if medica
== END 2022-12-03 13:57 | disposition home or self-care (01) ==
PROVIDERS: PCP Family Medicine; Visit Provider Family Medicine
DX: Z78.0 Asymptomatic menopausal state (principal); M85.89 Other specified disorders of bone density and structure, multiple sites
CPT/HCPCS: 77080

== ENCOUNTER 2023-01-05 13:39 | Outpatient (CLI) | payer OTHER, SELFPAY ==
[2023-01-05 14:06] LABS: Appearance Urine Clear (Clear); Bilirubin Urine Negative (Negative); Blood Urine Trace-Intact (Negative); Color Urine Light Yellow (Yellow); Glucose Urine UA 3+ (Negative); Ketones Urine Negative (Negative); Leukocyte Esterase Ur Negative LEU/UL (Negative); Nitrate Urine Negative (Negative); Protein Urine Negative (Negative); Urobilinogen Urine 0.2 mg/dL (0.2-1.0)
[2023-01-05 14:17] LABS: Add Urine Microscopic? YES; Bacteria Urine Trace /hpf; RBC Urine 0-2 /hpf (0-2); Squamous Epithelial Cell Urine Few /hpf (Few); WBC Urine None seen /hpf (0-3)
[2023-01-09 20:18] LABS: Vitamin D 25 Hydroxy 55 ng/mL (30-100)
== END 2023-01-05 13:40 | disposition home or self-care (01) ==
LOC: CHSLAB 13:41
PROVIDERS: PCP Family Medicine; Visit Provider Physician Assistant
DX: M85.80 Other specified disorders of bone density and structure, unspecified site (principal); Z78.0 Asymptomatic menopausal state; N39.0 Urinary tract infection, site not specified
CPT/HCPCS: 36415; 81001; 82306; 87077; 87086; 87088; 87186

== ENCOUNTER 2023-02-26 15:05 | Outpatient (CLI) | payer OTHER, SELFPAY ==
--- NOTE | ~2023-02-26 | XR_ITS ---
EXAM: XR shoulder LT min 2V DATE: 02/26/2023 15:44 HISTORY: frozen shoulder x 1yr pain worsening,hurts most whenlift arm . COMPARISON: 04/27/2020. FINDINGS: Decreased mineralization. No fracture or dislocation. No lytic or blastic lesion. Partiall y visualized spinal fusion hardware. Moderate AC joint and mild glenohumeral joint degenerative cordova e. No erosion or periosteal change. Soft tissues within normal limits. IMPRESSION: Polyarticular osteoarthritis of the left shoulder. Reviewed, dictated and finalized at location K. 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
[2023-02-26 15:52] LABS: Hemoglobin A1C 8.3 % (<5.7)
== END 2023-02-26 15:06 | disposition home or self-care (01) ==
LOC: CHSLAB 15:07
PROVIDERS: PCP Family Medicine; Visit Provider Family Medicine
DX: M75.00 Adhesive capsulitis of unspecified shoulder (principal); E11.65 Type 2 diabetes mellitus with hyperglycemia; E11.618 Type 2 diabetes mellitus with other diabetic arthropathy; M19.012 Primary osteoarthritis, left shoulder
CPT/HCPCS: 36415; 73030; 83036

== ENCOUNTER 2023-06-25 07:01 | Outpatient (CLI) | payer OTHER, SELFPAY ==
--- NOTE | ~2023-06-25 | MR_ITS ---
MRI of the thoracic spine Clinical History: Left-sided weakness Technique: Axial T2-weighted and gradient images, and sagittal T1-weighted, T2-weighted, and STIR guido ges were acquired. Findings: Posterior fusion hardware is present extending from T10 through the visualized lower thorac ic spine and visualized lumbar spine. Bilateral rods and pedicle screws are present. No fracture or s ubluxation evident in the thoracic spine. No suspicious bone marrow signal abnormality seen. There are several minimal disc bulges at the mid to lower thoracic spine, no spinal canal stenosis or cord compression identified. No epidural mass or collection identified. No abnormal signal seen in the spinal cord. Paravertebral soft tissues are unremarkable. Impression: Posterior fusion hardware from T10 extending through the visualized lumbar spine. Minimal disc bulges without canal stenosis or cord compression. Reviewed, dictated and finalized at [facility] M. Impression: Posterior fusion hardware from T10 extending through the visualized lumbar spin e. Minimal disc bulges without canal stenosis or cord compression.
--- NOTE | ~2023-06-25 | MR_ITS ---
MRI of the lumbar spine Clinical History: Left lower extremity weakness Technique: Axial T2-weighted images, and sagittal T1-weighted, T2-weighted, and STIR images were acqu ired. Findings: There is posterior fusion hardware extending from T10 through S1, bilateral rods and transp edicular screws present. No definite fracture or dislocation identified. There is extensive susceptib ility artifact related to the orthopedic hardware. No suspicious bone marrow signal abnormality ident ified. Probable multilevel posterior decompression present. No definite canal stenosis identified at any lum bar level. Neural foramina are somewhat poorly evaluated, but grossly intact. Paravertebral soft tissues are unremarkable. Impression: Somewhat suboptimal evaluation due to extensive posterior fusion hardware from T10 through S1. No fra cture, subluxation, canal stenosis, or gross neural foraminal narrowing identified. Reviewed, dictated and finalized at [facility]. Impression: Somewhat suboptimal evaluation due to extensive posterior fusion hardware from T10 through S1. No fracture, subluxation, canal stenosis, or gross neural millie inal narrowing identified.
--- NOTE | ~2023-06-25 | MR_ITS ---
MRI of the brain Clinical History: Left-sided weakness Technique: Axial and sagittal T1-weighted images were acquired. These were followed by axial T2-weigh gauri, diffusion weighted, gradient, and FLAIR images. Findings: No acute infarct, intracranial hemorrhage or mass lesion identified. There are mild to mode rate chronic microvascular ischemic changes in the periventricular white matter. Ventricles and subarachnoid spaces are unremarkable. Orbits are unremarkable. Paranasal sinuses and m astoid air cells are clear. Major intracranial flow voids are intact. Sagittal midline structures are intact. IMPRESSION: No acute abnormality. Mild to moderate chronic microvascular ischemic changes. Reviewed, dictated and finalized at location M.
--- NOTE | ~2023-06-25 | MR_ITS ---
EXAMINATION: MR cervical spine wo con DATE: 06/25/2023 10:24 INDICATION: Left upper extremity weakness TECHNIQUE: Magnetic resonance imaging (MRI) of the cervical spine was performed without intravenous c ontrast. Sequences included sagittal T2-weighted FSE, sagittal T2-weighted FS FSE, sagittal T1-weight ed FSE and axial T2-weighted FSE. COMPARISON: CT dated 09/19/2021 FINDINGS: Bone alignment is normal. Vertebral body heights are normal. Bone marrow signal intensity is normal . Moderate to severe disc height loss at C5-C6, moderate disc height loss at C6-C7, T3-T4 and T4-T5 a nd mild disc height loss at C2-C3, C4-C5 and C7-T1. Cord signal intensity is normal. Cervical soft ti ssues are unremarkable. The following disc levels are specifically discussed: C2-C3: Disc is bulging. There is mild left and severe right uncovertebral joint osteoarthritis. There is mild right and severe left facet joint osteoarthritis. There is mild right neural foraminal steno sis. There is mild central canal stenosis. C3-C4: Disc is bulging. There is mild left and moderate right uncovertebral joint osteoarthritis. The re is severe bilateral facet joint osteoarthritis. There is mild bilateral neural foraminal stenosis. There is mild central canal stenosis. C4-C5: Disc is bulging. There is mild bilateral uncovertebral joint osteoarthritis. There is severe b ilateral facet joint osteoarthritis. There is mild bilateral neural foraminal stenosis. There is mild central canal stenosis. C5-C6: Disc is bulging. There is severe bilateral uncovertebral joint osteoarthritis. There is mild l eft and moderate right facet joint osteoarthritis. There is moderate bilateral neural foraminal steno sis. There is mild central canal stenosis with mild flattening of the ventral surface of the cord. C6-C7: Disc is bulging. There is moderate left and severe right uncovertebral joint osteoarthritis. T here is mild left and moderate right facet joint osteoarthritis. There is mild left and mild to moder ate right neural foraminal stenosis. There is mild central canal stenosis with mild flattening the ve ntral surface of the cord. C7-T1: Disc is mildly bulging. There is no uncovertebral joint osteoarthritis. There is moderate righ t and severe left facet joint osteoarthritis. There is mild left neural foraminal stenosis. There is mild central canal stenosis. IMPRESSION: 1. Moderate to severe cervical spondylosis. Reviewed, dictated and finalized at location A.
== END 2023-06-25 07:02 | disposition home or self-care (01) ==
PROVIDERS: PCP Family Medicine; Visit Provider Student in an Organized Health Care Education/Training Program
DX: G89.29 Other chronic pain (principal); R29.818 Other symptoms and signs involving the nervous system; R53.1 Weakness; Z98.1 Arthrodesis status
CPT/HCPCS: 70551; 72141; 72146; 72148

== ENCOUNTER 2023-06-28 15:58 | Outpatient (CLI) | payer OTHER, SELFPAY ==
[2023-06-28 19:52] LABS: LDL Cholesterol Direct 97 mg/dL
[2023-06-28 20:15] LABS: Albumin Level 4.5 g/dL (3.5-5.1); Alkaline Phosphatase 78 U/L (38-126)
[2023-06-28 20:16] LABS: Alanine Aminotransferase 14 U/L (6-35); Anion Gap 6 mmol/L (4-12); Aspartate Amino Transferase 33 U/L (14-36); Bilirubin,Total 0.9 mg/dL (0.2-1.3); Blood Urea Nitrogen 16 mg/dL (7-17); Calcium 9.7 mg/dL (8.4-10.2); Carbon Dioxide 30 mmol/L (22-30); Chloride 103 mmol/L (98-107); Cholesterol 176 mg/dL (0-200); Estimated Glomerular Filt Rate > 60; Glucose 167 mg/dL (65-110); HDL Direct 54 mg/dL; Sodium 139 mmol/L (137-145); Triglycerides 145 mg/dL (<150)
[2023-06-28 21:09] LABS: Hemoglobin A1C 8.6 % (<5.7)
[2023-06-28 21:16] LABS: Creatinine Urine 55.2 mg/dL
[2023-06-28 21:25] LABS: MALB Creatinine Ratio < 10.9 mg/g (0-30); Microalbumin Urine Random < 6.0 mg/L (0-16.7)
[2023-06-28 23:52] LABS: Potassium 4.3 mmol/L (3.4-5.0)
== END 2023-06-28 15:59 | disposition home or self-care (01) ==
LOC: ANHGOSHLAB 15:58
PROVIDERS: PCP Family Medicine; Visit Provider Family Medicine
DX: E11.65 Type 2 diabetes mellitus with hyperglycemia (principal)
CPT/HCPCS: 36415; 80053; 80061; 82043; 83036

== ENCOUNTER 2023-07-19 12:33 | Outpatient (CLI) | payer OTHER, SELFPAY ==
--- NOTE | 2023-07-19 14:00 | NEURO_ITS ---
Impression: # Known diabetic complains of weakness of all extremities, left more than right. # No Carpal Tunnel Syndrome or ulnar neuropathy. 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 # Needle/EMG exam is without acute or chronic neurogenic changes except decreased motor unit potentials but again no fibs or myotonia. Nerve Conduction Studies Anti Sensory Summary Table Stim Site NR Peak (ms) P-T Amp (?V) Site1 Site2 Delta-P (ms) Dist (cm) Miguel (m/s) Left Median Anti Sensory (2-3nd Digit) Wrist 3.1 78.0 Wrist 2-3nd Digit 3.1 14.0 45 Wrist 3.3 74.3 Wrist 2-3nd Digit 3.1 14.0 45 Right Median Anti Sensory (2-3nd Digit) Wrist 3.1 70.1 Wrist 2-3nd Digit 3.1 14.0 45 Wrist 3.1 48.2 Wrist 2-3nd Digit 3.1 14.0 45 Left Radial Anti Sensory (Base 1st Digit) Wrist 1.7 14.0 Wrist Base 1st Digit 1.7 0.0 Right Radial Anti Sensory (Base 1st Digit) Wrist 2.4 26.0 Wrist Base 1st Digit 2.4 0.0 Left Sup Fibular Anti Sensory (Ant Lat Mall) NO RESPONSE 14 cm NR 14 cm Ant Lat Mall 16.0 Right Sup Fibular Anti Sensory (Ant Lat Mall) NO RESPONSE 14 cm NR 14 cm Ant Lat Mall 16.0 Left Sural Anti Sensory (Lat Mall) Calf 3.8 22.4 Calf Lat Mall 3.8 16.0 42 Right Sural Anti Sensory (Lat Mall) Calf 3.9 19.2 Calf Lat Mall 3.9 16.0 41 Left Ulnar Anti Sensory (5th Digit) Wrist 2.3 68.0 Wrist 5th Digit 2.3 14.0 61 Right Ulnar Anti Sensory (5th Digit) Wrist 2.3 62.6 Wrist 5th Digit 2.3 14.0 61 Motor Summary Table Stim Site NR Onset (ms) O-P Amp (mV) Site1 Site2 Delta-0 (ms) Dist (cm) Miguel (m/s) Left Median Motor (Abd Poll Brev) Wrist 3.1 6.6 Elbow Wrist 4.9 28.0 57 Elbow 8.0 4.5 Right Median Motor (Abd Poll Brev) Wrist 3.2 6.1 Elbow Wrist 5.0 28.0 56 Elbow 8.2 2.7 Left Peroneal Motor (Vastus Med) Ankle 4.5 0.2 Popit Ankle 10.6 44.0 42 Popit 15.1 0.2 Right Peroneal Motor (Vastus Med) Ankle 4.0 0.9 Popit Ankle 9.4 39.0 41 Popit 13.4 0.6 Left Tibial Motor (Abd Epperson Brev) Ankle 4.2 2.3 Knee Ankle 10.6 43.0 41 Knee 14.8 1.2 Right Tibial Motor (Abd Epperson Brev) Ankle 4.5 3.6 Knee Ankle 9.5 41.0 43 Knee 14.0 2.3 Left Ulnar Motor (Abd Dig Minimi) Wrist 2.3 6.0 A Elbow Wrist 5.4 31.0 57 A Elbow 7.7 3.8 Right Ulnar Motor (Abd Dig Minimi) Wrist 2.0 5.1 A Elbow Wrist 5.4 30.0 56 A Elbow 7.4 5.7 F Wave Studies NR F-Lat (ms) L-R F-Lat (ms) Left Median (Mrkrs) (Abd Poll Brev) 28.95 0.06 Right Median (Mrkrs) (Abd Poll Brev) 29.01 0.06 Left Peroneal (Mrkrs) (EDB) 51.35 0.35 Right Peroneal (Mrkrs) (EDB) 51.70 0.35 Left Tibial (Mrkrs) (Abd Hallucis) 52.28 0.40 Right Tibial (Mrkrs) (Abd Hallucis) 52.68 0.40 Left Ulnar (Mrkrs) (Abd Dig Min) 28.22 1.15 Right Ulnar (Mrkrs) (Abd Dig Min) 29.38 1.15 EMG Side Muscle Nerve Root Ins Act Fibs Amp Dur Recrt Comment Right 1stDorInt Ulnar C8-T1 Nml Nml Nml Nml +1 Right Ext Indicis Radial (Post Int) C7-8 Nml Nml Nml Nml +1 Right Ext Digitorum Radial (Post Int) C7-8 Nml Nml Nml Nml +1 Right BrachioRad Radial C5-6 Nml Nml Nml Nml
== END 2023-07-19 12:34 | disposition home or self-care (01) ==
LOC: ANHNEURO 12:34
PROVIDERS: PCP Family Medicine; Visit Provider Student in an Organized Health Care Education/Training Program
DX: R53.1 Weakness (principal); R29.818 Other symptoms and signs involving the nervous system; G89.29 Other chronic pain
CPT/HCPCS: 95886; 95913

== ENCOUNTER 2023-10-17 14:25 | Outpatient (CLI) | payer OTHER, SELFPAY ==
[2023-10-17 15:03] LABS: Creatinine Urine 65.15 mg/dL (40-278); MALB Creatinine Ratio 19.9 mg/g (0-30); Microalbumin Urine Random < 13.0 mg/L
[2023-10-17 15:04] LABS: Alanine Aminotransferase 13 U/L (14-59); Albumin Level 3.7 g/dL (3.4-5.0); Alkaline Phosphatase 76 U/L (46-116); Anion Gap 7 mmol/L (4-12); Aspartate Amino Transferase 14 U/L (15-37); Bilirubin,Total 0.5 mg/dL (0.00-1.00); Blood Urea Nitrogen 15 mg/dL (7-18); Carbon Dioxide 31 mmol/L (21-32); Chloride 103 mmol/L (98-108); Cholesterol 170 mg/dL (0-200); Estimated Glomerular Filt Rate > 60; Glucose 151 mg/dL (70-99); HDL Direct 59 mg/dL (40-60); LDL Cholesterol Calculated 84 mg/dL (<130); Osmolality Calculated 295 mOsm/kg (285-295); Potassium 3.9 mmol/L (3.5-5.1); Sodium 141 mmol/L (136-145); Total Protein 7.4 g/dL (6.4-8.2); Triglycerides 135 mg/dL (0-150)
[2023-10-17 15:07] LABS: Hemoglobin A1C 7.8 % (<5.7)
[2023-10-17 16:09] LABS: Thyroid Stimulating Hormone 1.66 uIU/mL (0.36-3.74); Vitamin B12 275 pg/mL (193-986)
[2023-10-19 13:37] LABS: Red Blood Cell Folate 435 ng/mL RBC (>280)
== END 2023-10-17 14:26 | disposition home or self-care (01) ==
LOC: CHSLAB 14:28
PROVIDERS: Psychiatry & Neurology Neurology; PCP Family Medicine; Visit Provider Family Medicine
DX: M54.12 Radiculopathy, cervical region (principal); M48.062 Spinal stenosis, lumbar region with neurogenic claudication; M48.02 Spinal stenosis, cervical region; M06.9 Rheumatoid arthritis, unspecified; I67.9 Cerebrovascular disease, unspecified; H90.5 Unspecified sensorineural hearing loss; G89.29 Other chronic pain; E66.01 Morbid (severe) obesity due to excess calories; E11.65 Type 2 diabetes mellitus with hyperglycemia
CPT/HCPCS: 36415; 80053; 80061; 82043; 82607; 82747; 83036; 84443

== ENCOUNTER 2023-11-04 13:17 | Outpatient (CLI) | payer OTHER, SELFPAY ==
--- NOTE | ~2023-11-04 | XR_ITS ---
XR shoulder LT min 2V Ordering provider: Chasity Burt MD History: . Chronic pain in left shoulder, NKI . Comparison: February 26, 2023 FINDINGS: BONES: No acute fracture or dislocation. Degenerative changes seen at the insertion of the supraspina tus tendon. JOINT SPACES: The acromioclavicular joint shows osteoarthritic changes.. The glenohumeral joint is no rmal. SOFT TISSUES: Normal. IMPRESSION: No acute osseous abnormality left shoulder. Reviewed, dictated and finalized at location A.
--- NOTE | ~2023-11-04 | US_ITS ---
EXAMINATION: US carotid duplex BI DATE: 11/04/2023 13:46 INDICATION: Cerebrovascular disease TECHNIQUE: Grayscale, color Doppler, and pulsed Doppler images of the cervical carotid arteries were obtained. The degree of vessel stenosis is placed in one of the following categories: normal, <50%, 5 0-69%, >=70% but less than near-occlusion, near-occlusion, or total occlusion. Note that percent sten osis relative to normal distal artery lumen diameter is indirectly measured from velocity measurement s as described by Niko, et al. Radiology 2003; 229:340-346. Notes: Normal: Peak systolic velocity <125 centimeters/sec and no plaque <50%. Peak systolic velocity <125 ( EDV <40; ICA/CCA PSV ratio <2.0; used these factors only a tandem lesions or low cardiac output or co ntralateral disease) 50-69 %: PSV 125-230 (EDV 40-100; ratio 2-4) >= 70% but less than near occlusion: PSV greater than 230 (EDV > 100; ratio> 4.0) Near Occlusion: PSV that is variable; markedly narrowed lumen Occlusion: Absent flow on color/spectral Doppler and no lumen on cardoso scale. COMPARISON: None. FINDINGS: RIGHT: The right common carotid artery (CCA) peak systolic velocity (PSV) is 74 cm/s. The right internal car otid artery (ICA) PSV is 59 cm/s. The right ICA end-diastolic velocity (EDV) is 26 cm/s. The right IC A/CCA PSV ratio is 0.8. The external carotid artery (ECA) PSV is 58 cm/s. There is antegrade flow in the right vertebral artery. LEFT: The left CCA PSV is 55 cm/s. The left ICA PSV is 73 cm/s. The left ICA EDV is 24 cm/s. The left ICA/C CA PSV ratio is 1.3. The ECA PSV is 49 cm/s. There is antegrade flow in the left vertebral artery. IMPRESSION: 1. Less than 50% stenosis in the right internal carotid artery by sonographic criteria. 2. Less than 50% stenosis in the left internal carotid artery by sonographic criteria. Reviewed, dictated and finalized at location B. IMPRESSION: 1. Less than 50% stenosis in the right internal carotid artery by sonographic michele serna. 2. Less than 50% stenosis in the left internal carotid artery by sonographic nhung miguel.
== END 2023-11-04 13:18 | disposition home or self-care (01) ==
LOC: CHSIMG 13:18
PROVIDERS: PCP Family Medicine; Visit Provider Family Medicine
DX: M25.512 Pain in left shoulder (principal); E66.01 Morbid (severe) obesity due to excess calories; I67.9 Cerebrovascular disease, unspecified; R09.89 Other specified symptoms and signs involving the circulatory and respiratory systems; R53.1 Weakness; M48.02 Spinal stenosis, cervical region; I65.23 Occlusion and stenosis of bilateral carotid arteries
CPT/HCPCS: 73030; 93880

== ENCOUNTER 2023-12-07 13:17 | Outpatient (CLI) | payer OTHER, SELFPAY ==
--- NOTE | ~2023-12-07 | XR_ITS ---
EXAMINATION: XR barium swallow modified DATE: 12/07/2023 13:52 INDICATION: Swallowing dysfunction. TECHNIQUE: The patient was given barium-containing material of multiple consistencies to swallow by t lenny speech pathologist while I performed fluoroscopy. Fluoroscopy exposure time was 1.2 minutes. The n umber of fluoroscopy images saved to the PACS was 1. Dose-area product was 0.875 Gy-cm^2. FINDINGS: The oral stage, pharyngeal stage, and cervical/esophageal stage of the swallow are normal. IMPRESSION: 1. Normal modified barium swallow. 2. Please refer to the speech therapy report for recommendations. Reviewed, dictated and finalized at location A.
--- NOTE | 2023-12-07 15:26 | REHSTMBS ---
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 Patient reports that she chokes on everything. She stated that she can choke on cold tea, and that it will go up (her) nose. Patient also reorted that she has to chew thoroughly and that she has a hard time getting it down. Patient reported that these symptoms have been occurring for about a year but that although she may feel difficulty every meal, it is not every bite/sip. Patient reports a history of back surgery with darwin(s) placed, shots for her neck, and Rheumatoid Arthritis (RA). The patient was viewed in the lateral position to the level of C5/C6. She was presented with graduated amounts of thin liquid contrast medium per spoon, cup, and straw. She also was presented with pudding mixed with semi-solid contrast medium, and then cracker piece and fruit cocktail pieces, both coated in the pudding mixture. Patient elicited quick swallows with no significant pharyngeal residue and no penetration/aspiration. Results suggest this patient's swallowing skills are within normal limits. Due to a diagnosis of RA and patient complaints of choking and difficulty swallowing, direct Speech Therapy is recommended at this time for instruction of safe swallowing strategies and swallowing strengthening exercises as RA can, in some cases over time, lend itself to dysphagia and loss of ability to consume oral presentations. Please order Speech Therapy at [facility], outpatient services. Thank you for this referral.
== END 2023-12-07 13:18 | disposition home or self-care (01) ==
PROVIDERS: PCP Family Medicine; Visit Provider Family Medicine
DX: R53.1 Weakness (principal); G89.29 Other chronic pain; R13.10 Dysphagia, unspecified; R29.818 Other symptoms and signs involving the nervous system
CPT/HCPCS: 92611

== ENCOUNTER 2024-04-11 08:25 | Outpatient (NON) | payer OTHER, SELFPAY ==
--- OUTSIDE RECORDS SUMMARY | 2024-04-12 21:47 | XMS_ITS ---
Author Organization [facility] Address 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F [address], [address] [place], [place] [phone] 04/09/2024 Josiane Pena PLAN OF TREATMENT Next Appt Details Provider Name:Marianne Velasquez, 05/07/2024 03:00:00 PM, [address], [facility] [address], [place], [place], [phone], Provider Name:Marianne Velasquez, 06/11/2024 02:20:00 PM, [address], [facility] [address], [place], [place], [phone],
--- OUTSIDE RECORDS SUMMARY | 2024-04-12 21:47 | XMS_ITS ---
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 Name Role Phone GERALD DIXON MD Primary Care Provider Unav ailable Josiane Pena Unavailable [phone] ABEBE DIXON MD Unavailab le MEDICATIONS Medication SIG (Take, Route, Fr equency, Duration) Notes Start Date End Date Status traMADol 50 mg 2 tab(s) orally 3 ti mes a day as needed for 30 days 04/02/2024 Active Encounters Encounter Location Date Provider Diagnosis [facility] [address], [address] [place], [place] [phone] 04/02/2024 Akgun Jean Primary generalized (osteo)arthritis M15.0 ASSESSMENTS Encounter Date Diagnosis Assessment Notes Treatment Notes Treatment Clinical Notes 04/02/2024 Primary generalized (osteo)arthritis (ICD-10 - M15.0) PLAN OF TREATMENT Medication Medication Name Sig Start Date Stop Date Notes traMADol 50 mg 2 tab(s) orally 3 ti mes a day as needed for 30 days 04/02/2024 Next Appt Details Provider Name:Marianne Velasquez, 05/07/2024 03:00:00 PM, [address], [address], [place], [place], [phone], Provider Name:Marianne Velasquez, 06/11/2024 02:20:00 PM, [address], [address], [place], [place], [phone],
--- OUTSIDE RECORDS SUMMARY | 2024-04-12 21:47 | XMS_ITS ---
Author Organization Unknown Medications Medication Instructions Effective Dates (start - stop) Status - - Compl eted 1 ML abatacept 125 MG/ML Auto-Injector [Orencia] - Completed - - Compl eted sitagliptin 100 MG Oral Tabl et [Januvia] - Completed 1 ML abatacept 125 MG/ML Auto-Injector [Orencia] - Completed ergocalciferol 1.25 MG Oral Capsule 05-26T00:00:00Z - Completed pravastatin sodium 20 MG Ora l Tablet - Completed lifitegrast 50 MG/ML Ophthal renetta Solution [Xiidra] - Completed glyburide 2.5 MG Oral Tablet [id number] 0:00:00Z - Completed empagliflozin 25 MG Oral Tab let [Jardiance] - Completed - - Compl eted gabapentin 300 MG Oral Capsule 2023-09-08 T00:00:00Z - Completed - - Compl eted gabapentin 300 MG Oral Capsule 2022-12-15 T00:00:00Z - Completed - - Compl eted - - Compl eted amoxicillin 500 MG Oral Capsule 2023-04-22 7T00:00:00Z - Completed 1 ML abatacept 125 MG/ML Auto-Injector [Orencia] - Completed - - Compl eted ergocalciferol 1.25 MG Oral Capsule :00:00Z - Completed - - Compl eted lifitegrast 50 MG/ML Ophthal renetta Solution [Xiidra] - Completed empagliflozin 25 MG / linagl iptin 5 MG Oral Tablet [Glyxambi] - Completed sitagliptin 100 MG Oral Tabl et [Januvia] - Completed glyburide 2.5 MG Oral Tablet [id number] 0:00:00Z - Completed empagliflozin 25 MG / linagl iptin 5 MG Oral Tablet [Glyxambi] - Completed 1 ML abatacept 125 MG/ML Auto-Injector [Orencia] - Completed 1 ML abatacept 125 MG/ML Auto-Injector [Orencia] - Completed ergocalciferol 1.25 MG Oral Capsule 08-21T:00:00Z - Completed 1 ML abatacept 125 MG/ML Auto-Injector [Orencia] - Completed tramadol hydrochloride 50 MG Oral Tablet - Completed pravastatin sodium 20 MG Ora l Tablet - Completed amoxicillin 500 MG Oral Capsule 2023-07-20 5T00:00:00Z - Completed amoxicillin 875 MG Oral Tablet 2023-01-10 T00:00:00Z - Completed tramadol hydrochloride 50 MG Oral Tablet - Completed 1 ML abatacept 125 MG/ML Auto-Injector [Orencia] - Completed lifitegrast 50 MG/ML Ophthal renetta Solution [Xiidra] - Completed sulfamethoxazole 800 MG / trimethoprim 160 MG Oral Tablet - Compl eted ergocalciferol 1.25 MG Oral Capsule 03-05T00:00:00Z - Completed gabapentin 300 MG Oral Capsule 2023-04-18 T00:00:00Z - Completed pravastatin sodium 20 MG Ora l Tablet - Completed - - Compl eted empagliflozin 25 MG Oral Tab let [Jardiance] - Completed empagliflozin 25 MG Oral Tab let [Jardiance] - Completed pravastatin sodium 20 MG Ora l Tablet - Completed sitagliptin 100 MG Oral Tabl et [Januvia] - Completed Patient Care team information Name Category Status Period Participants - - Proposed period not known -
--- OUTSIDE RECORDS SUMMARY | 2024-04-12 21:47 | XMS_ITS | Clinical Summary ---
Author Organization [facility] Address [address] [place] [address] Phone Care Team Providers Care Furniture Dipper Name Role Phone Alf Burnette MD Primary Care Provider +1- [phone] Allergies No known active allergies Medications cetirizine (ZYRTEC) 10 mg Oral tablet Take 10 mg by mouth daily. Active folic acid (FOLVITE) 1 mg Oral tablet Take 1 mg by mouth daily. Active omeprazole (PRILOSEC) 20 mg Oral CpDR Take 40 mg by mouth daily. Active amitriptyline (ELAVIL) 100 mg Oral tablet Take 100 mg by mouth daily at bedtime. Active traMADol (ULTRAM) 50 mg Oral tablet Take 100 mg by mouth every 6 hours as needed. Active calcium carbonate (CALCIUM 500) 500 mg (1,250 mg) Oral tablet Take 2 Tabs by mouth daily. Active Cholecalciferol , Vitamin D3, (VITAMIN D) 1,000 unit Oral Tab Take 1,000 Units by mouth daily. 05/25/2010 Active selenium 50 mcg Oral Tab Take 50 mcg by mouth. Active FLAXSEED ORAL 1,200 mg by Misc.(Non-Renaldo g; Combo Route) route daily. 05/25/2010 Active multivitamin (DAILY-DAVID) Oral tablet Take 1 Tab by mouth daily. Active ergocalciferol (VITAMIN D2) 50,000 unit Oral capsuleIndicati ons:Tuesday Take 50,000 Units by mouth every 7 days. Indications: Tuesday05/25/2010 Active oxyCODONE-aceta minophen (PERCOCET) 5-325 mg Oral tablet Take 1 Tab by mouth every 4 hours as needed (For Pain Scale 4-6). 40 Tab 0 06/04/2010 Active ferrous sulfate (FEOSOL) 325 mg (65 mg Iron) Oral tablet Take 1 Tab by mouth daily. 40 Tab 0 06/04/2010 Active HYDROcodone-demi taminophen (NORCO) 5-325 mg Oral tablet Take 1 Tab by mouth every 4 hours as needed (For Pain Scale 4-6). 40 Tab 0 09/17/2010 Active oxyCODONE-aceta minophen (PERCOCET) 5-325 mg Oral tablet Take 1 Tab by mouth every 4 hours as needed (For Pain Scale 4-6). 50 Tab 0 09/17/2010 Active warfarin (COUMADIN) 1 mg Oral tablet Take 1 Tab by mouth Daily LATE. 250 Tab 0 09/17/2010 Active meloxicam (MOBIC) 15 mg tablet Take 15 mg by mouth daily. Active methotrexate (RHEUMATREX) 2.5 mg Tablet Take 2.5 mg by mouth every 7 days. Active metFORMIN (GLUCOPHAGE) 500 mg tablet Take 500 mg by mouth 2 times daily with meals. Active pravastatin (PRAVACHOL) 20 mg tablet Take 20 mg by mouth Daily LATE. Active Active Problems Problem Noted Date Diagnosed Date Hyperglycemia 09/16/2010 Anemia 09/16/2010 RA (rheumatoid arthritis) 09/16/2010 Insomnia 09/16/2010 GERD (gastroesophageal reflux disease) 1 Allergic rhinitis, cause unspecified 09/16/2010 Rheumatoid arthritis(714.0) 06/02/2010 DJD (degenerative joint disease) of knee 011 GERD (gastroesophageal reflux disease) 1 Scoliosis 06/02/2010 Social History Tobacco Use Types Packs/Day Years Used Date Smoking Tobacco: Never Alcohol Use Standard Drinks/Week Comments No 0 (1 standard drink = 0.6 oz pur e alcohol) Comments Unknown Sex and Gender Information Value Date Recorded Sex Assigned at Not on file Legal Sex Female 5:59 AM SWITCH CREW SUPERVISOR Gender Identity Not on file Sexual Orientation Not on file Last Filed Vital Signs Vital Sign Reading Time Taken Comments Blood Pressure 135/86 04/29/2014 10:30 AM SWITCH CREW SUPERVISOR Pulse 92 04/29/2014 10:30 AM SWITCH CREW SUPERVISOR Temperature 36.6 ??C (97.9 ??F) 04/29/2014 10:[address] Respiratory Rate 20 04/29/2014 10:30 AM SWITCH CREW SUPERVISOR Oxygen Saturation 97% 09/17/2010 8:00 AM CDT Inhaled Oxygen Concentration - - Weight 106.1 kg (234 lb) 04/29/2014 10:30 AM SWITCH CREW SUPERVISOR Height 162.6 cm (5' 4 ) 04/29/2014 10:30 AM SWITCH CREW SUPERVISOR Body Mass Index 40.17 04/29/2014 10:30 AM SWITCH CREW SUPERVISOR Plan of Treatment Health Maintenance Due Date Last Done Comments DTAP/TDAP/TD VACCINES (1 - Tdap) 1977 BREAST CANCER SCREENING 1998 COLORECTAL SCREENING 07/29/2003 Colorectal Cancer Screening 07/29/2003 FIT-DNA Q 3 years 07/29/2003 FIT/FOBT Q 1 year 07/29/2003 Flex Sig/CT Colonography Q 5 years 07/29/2003 PNEUMOCOCCAL VACCINE 65+ YEARS (1 of 1 - PCV) 07/29/19 ZOSTER VACCINE (1 of 2) 2008 OSTEOPOROSIS SCREENING 07/29/2023 INFLUENZA VACCINE (#1) 2023 RSV VACCINE (60+ or ) (1 - 1-dose 75+ series) 2033 Medical Devices Implanted Type Area Transitional Care Nurse Device Identifier Shelf Expiration Date Model / Serial / Lot Log [id number] - Cement - 1 - Cement Kinzers G-Hv 40g [id number] Implanted:Qty: 1 on 06/02/2010 at [facility] Cement Left: Knee [employer] 11/20/2011 [id number] / / [id number] Log [id number] - Cement - 1 - Cement Kinzers G-Hv 40g [id number] Implanted:Qty: 1 on 09/15/2010 at [facility] Cement Right: Knee [employer] 01/20/2012 [id number] / / [id number] Log 86652 - Biomet Vanguard Complete Knee System - 1 - Patella 3peg Series A [id number] Implanted:Qty: 1 on 06/02/2010 at [facility] Knee Left: Knee [employer] 03/21/2015 [id number] / / [id number] Log 55653 - Biomet Vanguard Complete Knee System - 1 - Plate Tib Cocr Finned 67mm [id number] Implanted:Qty: 1 on 06/02/2010 at [facility] Knee Left: Knee [employer] 01/20/2020 [id number] / / [id number] Log 93022 - Biomet Vanguard Complete Knee System - 1 - Fem Vng Open Box 62.5mm Lt [id number] Implanted:Qty: 1 on 06/02/2010 at [facility] Knee Left: Knee [employer] 04/21/2020 [id number] / / [id number] Log 27758 - Biomet Vanguard Complete Knee System - 1 - Bearing Tib Vngrd Epoly Ps [id number] Implanted:Qty: 1 on 06/02/2010 at [facility] Knee Left: Knee [employer] 09/18/2014 [id number] / / [id number] Description:Epoly bearing is not part of total knee cap pricing,will be charged separately Log [id number] - Biomet Vanguard Complete Knee System - 1 - Bearing Tib Vngrd Epoly Ps [id number] Implanted:Qty: 1 on 09/15/2010 at [facility] Knee Right: Knee [employer] 02/18/2015 [id number] / / [id number] Description:Epoly bearing is not part of total knee cap pricing,will be charged separately. Log [id number] - Biomet Vanguard Complete Knee System - 1 - Patella 3peg Series A [id number] Implanted:Qty: 1 on 09/15/2010 at [facility] Knee Right: Knee [employer] 06/20/2015 [id number] / / [id number] Log 345808 - Biomet Vanguard Complete Knee System - 1 - Plate Tib Cocr Finned 71mm [id number] Implanted:Qty: 1 on 09/15/2010 at [facility] Knee Right: Knee [employer] 06/19/2020 [id number] / / [id number] Log [id number] - Biomet Vanguard Complete Knee System - 1 - Comp Fem Vng Ps Opn Bx Rt [id number] Implanted:Qty: 1 on 09/15/2010 at [facility] Knee Right: Knee [employer] 06/19/2020 [id number] / / [id number] Femoral Pegs Implanted:Qty: 1 on 06/02/2010 at [facility] Left: Knee [employer] 04/21/2020 [id number] / / [id number] Description:Femoral pegs are not part of total knee cap pricing,will be charged separately. Femoral Pegs Implanted:Qty: 1 on 09/15/2010 at [facility] Right: Knee [employer] 08/19/2020 [id number] / / [id number] Description:Femoral pegs are not part of total knee cap pricing,will be charged separately. Insurance [employer] [facility] OPEN ACCESS [facility] Address: [facility] [id number] [place] [address] Advance Directives For more information, please contact: [phone] Documents on File Type Date Recorded Patient Chiropractic Doctor Expl anation Advance Directive Living Will 06/07/2010 Advance Directive POA 06/07/2010 6:38 PM A dvance Directive POA * Full Code (Latest Code Status on File) Date Activated Date Inactivated Comments 09/15/2010 3:34 PM 09/17/2010 6:23 PM * Full Code Date Activated Date Inactivated Comments 09/15/2010 9:51 AM 09/15/2010 3:34 PM * Full Code Date Activated Date Inactivated Comments 09/15/2010 9:18 AM 09/15/2010 9:51 AM * Full Code Date Activated Date Inactivated Comments 06/02/2010 3:55 PM 06/04/2010 8:42 PM * Full Code Date Activated Date Inactivated Comments 06/02/2010 10:23 AM 06/02/2010 3:55 PM Care Teams Furniture Dipper Relationship Specialty Start Date End Date Alf Burnette MD PCP - General Family Practice 05/19/10
--- OUTSIDE RECORDS SUMMARY | 2024-04-12 21:47 | XMS_ITS ---
Author Organization [facility] Address [address] [place] [phone] Care Team Providers Care Associate Loan Officer Name Role Phone GERALD DIXON MD Primary Care Provider Unav ailable Josiane Pena Unavailable [phone] ABEBE DIXON MD Unavailable Unavailab le REASON FOR VISIT refill Encounters Encounter Location Date Provider Diagnosis [facility] [address], [facility] [address] [place], [place] [id number] 04/04/2024 Josiane Pena PLAN OF TREATMENT Next Appt Details Provider Name:Marianne Velasquez, 05/07/2024 03:00:00 PM, [address], [facility] [address], [place], [place], [phone], Provider Name:Marianne Velasquez, 06/11/2024 02:20:00 PM, [address], [facility] [address], [place], [place], [phone],
== END 2024-04-11 08:26 | disposition home or self-care (01) ==
LOC: ANHGOSHLAB 08:26
PROVIDERS: PCP Family Medicine; Visit Provider Student in an Organized Health Care Education/Training Program
DX: B37.31 Acute candidiasis of vulva and vagina (principal)
CPT/HCPCS: 87102; 87206

== ENCOUNTER 2024-07-16 15:25 | Outpatient (CLI) | payer OTHER, SELFPAY ==
[2024-07-16 16:01] LABS: Creatinine Urine 104.84 mg/dL (40-278); MALB Creatinine Ratio 12.3 mg/g (0-30); Microalbumin Urine Random < 13.0 mg/L
[2024-07-16 16:10] LABS: Alanine Aminotransferase 17 U/L (14-59); Albumin Level 3.8 g/dL (3.4-5.0); Alkaline Phosphatase 80 U/L (46-116); Anion Gap 6 mmol/L (4-12); Aspartate Amino Transferase 12 U/L (15-37); Bilirubin,Total 0.5 mg/dL (0.00-1.00); Blood Urea Nitrogen 16 mg/dL (7-18); Calcium 9.2 mg/dL (8.5-10.1); Carbon Dioxide 31 mmol/L (21-32); Chloride 104 mmol/L (98-108); Cholesterol 158 mg/dL (0-200); Estimated Glomerular Filt Rate > 60; Free T4 Free Thyroxine 1.05 ng/dL (0.76-1.46); Glucose 115 mg/dL (70-99); HDL Direct 60 mg/dL (40-60); LDL Cholesterol Calculated 71 mg/dL (<130); Osmolality Calculated 294 mOsm/kg (285-295); Potassium 4.3 mmol/L (3.5-5.1); Sodium 141 mmol/L (136-145); Thyroid Stimulating Hormone 3.92 uIU/mL (0.36-3.74); Total Protein 7.2 g/dL (6.4-8.2); Triglycerides 136 mg/dL (0-150)
--- OUTSIDE RECORDS SUMMARY | 2024-07-16 17:34 | XMS_ITS ---
[...] - Completed glyburide 2.5 MG Oral Tablet [id number] 0:00:00Z - Completed empagliflozin 25 MG Oral [...] - Completed glyburide 2.5 MG Oral Tablet [id number] 0:00:00Z - Completed empagliflozin 25 MG / [...]
--- OUTSIDE RECORDS SUMMARY | 2024-07-16 17:34 | XMS_ITS | Clinical Summary ---
Author Organization [facility] Address [address] [place] [address] Phone Care Team Providers Care Asparagus Cutter Name Role Phone Alf Burnette MD Primary Care Provider +1- [phone] Allergies No known active allergies Medications cetirizine [...] on file Legal Sex Female 5:59 AM RESIDENTIAL APPLIANCE REPAIR TECHNICIAN Gender Identity Not on file Sexual Orientation Not on file Last Filed Vital Signs Vital Sign Reading Time Taken Comments Blood Pressure 135/86 04/29/2014 10:30 AM RESIDENTIAL APPLIANCE REPAIR TECHNICIAN Pulse 92 04/29/2014 10:30 AM RESIDENTIAL APPLIANCE REPAIR TECHNICIAN Temperature 36.6 C (97.9 F) 04/29/2014 10:30 AM RESIDENTIAL APPLIANCE REPAIR TECHNICIAN Respiratory Rate 20 04/29/2014 10:30 AM RESIDENTIAL APPLIANCE REPAIR TECHNICIAN Oxygen Saturation 97% 09/17/2010 8:00 AM CDT Inhaled Oxygen Concentration - - Weight 106.1 kg (234 lb) 04/29/2014 10:30 AM RESIDENTIAL APPLIANCE REPAIR TECHNICIAN Height 162.6 cm (5' 4 ) 04/29/2014 10:30 AM RESIDENTIAL APPLIANCE REPAIR TECHNICIAN Body Mass Index 40.17 04/29/2014 10:30 AM RESIDENTIAL APPLIANCE REPAIR TECHNICIAN Plan of Treatment Health Maintenance Due Date Last Done Comments DTAP/TDAP/TD VACCINES (1 - Tdap) 1977 BREAST CANCER SCREENING 1998 COLORECTAL SCREENING 07/29/2003 Colorectal Cancer Screening 07/29/2003 FIT-DNA Q 3 years 07/29/2003 FIT/FOBT Q 1 year 07/29/2003 Flex Sig/CT Colonography Q 5 years 07/29/2003 PNEUMOCOCCAL VACCINE 50+ YEARS (1 of 1 - PCV) 07/29/19 09 ZOSTER VACCINE (1 of 2) 2008 OSTEOPOROSIS SCREENING 07/29/2023 INFLUENZA VACCINE (#1) 2023 RSV VACCINE (60+ or ) (1 - 1-dose 75+ series) 2033 Medical Devices Implanted Type Area Education Adviser Device Identifier Shelf Expiration Date Model / Serial / Lot Log [id number] - Cement - 1 - Cement [place] G-Hv 40g [id number] Implanted:Qty: 1 on 06/02/2010 at [facility] Cement Left: Knee [employer] 11/20/2011 [id number] / / [id number] Log 803991 - Cement - 1 - Cement [place] G-Hv 40g [id number] Implanted:Qty: 1 on 09/15/2010 at [facility] Cement Right: Knee [employer] 01/20/2012 [id number] / / [id number] Log 58654 - Biomet Vanguard Complete Knee System - 1 - Patella 3peg Series A [id number] Implanted:Qty: 1 on 06/02/2010 at [facility] Knee Left: Knee [employer] 03/21/2015 [id number] / / [id number] Log 43371 - Biomet Vanguard Complete Knee System - 1 - Plate Tib Cocr Finned 67mm [id number] Implanted:Qty: 1 on 06/02/2010 at [facility] Knee Left: Knee [employer] 01/20/2020 [id number] / / [id number] Log 26860 - Biomet Vanguard Complete Knee System - 1 - Fem Vng Open Box 62.5mm Lt [id number] Implanted:Qty: 1 on 06/02/2010 at [facility] Knee Left: Knee [employer] 04/21/2020 [id number] / / [id number] Log 33791 - Biomet Vanguard Complete Knee System - 1 - Bearing Tib Vngrd Epoly Ps [id number] Implanted:Qty: 1 on 06/02/2010 at [facility] Knee Left: Knee [employer] 09/18/2014 [id number] / / [id number] Description:Epoly bearing is not part of total knee cap pricing,will be charged separately Log [id number] - Biomet Vanguard Complete Knee System - 1 - Bearing Tib Vngrd Epoly Ps [id number] Implanted:Qty: 1 on 09/15/2010 at [facility] Knee Right: Knee [employer] 02/18/2015 [id number] / / [id number] Description:Epoly bearing is not part of total knee cap pricing,will be charged separately. Log [id number] - Biomet Vanguard Complete Knee System - 1 - Patella 3peg Series A [id number] Implanted:Qty: 1 on 09/15/2010 at [facility] Knee Right: Knee [employer] 06/20/2015 [id number] / / [id number] Log 212737 - Biomet Vanguard Complete Knee System - 1 - Plate Tib Cocr Finned 71mm [id number] Implanted:Qty: 1 on 09/15/2010 at [facility] Knee Right: Knee [employer] 06/19/2020 [id number] / / [id number] Log 215475 - Biomet Vanguard Complete Knee System - 1 - Comp Fem Vng Ps Opn Bx Rt [id number] Implanted:Qty: 1 on 09/15/2010 at [facility] Knee Right: Knee [employer] 06/19/2020 [id number] / / [id number] Femoral Pegs Implanted:Qty: 1 on 06/02/2010 at [facility] Left: Knee [employer] 04/21/2020 [id number] / / [id number] Description:Femoral pegs are not part of total knee cap pricing,will be charged separately. Femoral Pegs Implanted:Qty: 1 on 09/15/2010 at [facility] Right: Knee [employer] 08/19/2020 [id number] / / [id number] Description:Femoral pegs are not part of total knee cap pricing,will be charged separately. 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
== END 2024-07-16 15:26 | disposition home or self-care (01) ==
LOC: CHSLAB 15:26
PROVIDERS: PCP Family Medicine; Visit Provider Internal Medicine
DX: E66.01 Morbid (severe) obesity due to excess calories (principal); E78.2 Mixed hyperlipidemia; E11.65 Type 2 diabetes mellitus with hyperglycemia; E66.9 Obesity, unspecified
CPT/HCPCS: 36415; 80053; 80061; 82043; 84439; 84443

== ENCOUNTER 2025-01-03 15:07 | Outpatient (CLI) | payer OTHER, SELFPAY ==
--- OUTSIDE RECORDS SUMMARY | 2024-11-14 09:00 | XMS_ITS ---
Author Organization [facility] Address [address] [place], [place] [phone] Care Team Providers Care Textile Artist Name Role Phone GERALD DIXON MD Primary Care Provider Unav ailable JeanJosiane coronado Unavailable [phone] ABEBE DIXON MD Unavailable Unavailab le REASON [...] day (at bedtime) Active Orencia 250 mg 750mg/kg intravenous ly every 4 weeks Active Vitamin D2 (obsolete) 50,000 intl units 1 cap(s) orally once a week for 90 days Active traMADol 50 mg 2 tab(s) orally 3 ti mes a day as needed for 30 days 07/02/2024 Active Vitamin B12 1000 mcg 1 tab(s) orally once a day Active Mounjaro Active glimepiride 1 mg 1 tab(s) orally once a day Active gabapentin 300 mg 1 cap(s) orally 3 ti mes a day for 90 days Active VITAL SIGNS BMI 32.95 kg/m2 11/14/2024 Blood pressure systolic 100 mm Hg 11/15/19 25 Blood pressure diastolic 65 mm Hg 025 Heart Rate 89 /min 11/14/2024 Height 64 in 11/14/2024 Temperature 97.2 degrees Fahrenheit 11/15/19 25 Weight 192 lbs 11/14/2024 Encounters Encounter Location Date Provider Diagnosis [facility] [address] [facility] [place], [place] [phone] 11/14/2024 Josiane Pena Rheumatoid arthritis of multiple sites without rheumatoid factor M06.09 ASSESSMENTS Encounter Date Diagnosis Assessment Notes Treatment Notes Treatment Clinical Notes Section Notes 11/14/2024 Rheumatoid arthritis of multiple sites without rheumatoid factor (ICD-10 - M06.09) PLAN OF TREATMENT Next Appt Details Provider Name:Josiane Pena, 02:00:00 PM, [address] [facility], [place], [place], [phone], Provider Name:Marianne Velasquez, 01/30/2025 03:40:00 PM, [address] [facility], [facility] [address], [place], [place], [phone], Procedure Notes * Category Sub-Category Detail Notes Orencia Infusion Treatment Number: 12+ PPD negative Infection/Date/Tx denies Live Vaccines denies Recent Procedures denies Previous Reactions denies Premedications/Time/Route none Number of Vials 3 VIALS 750MG DOSE ( 250MG VIAL X 3) Orencia Lot Number: [id number] [id number] 12/2026 IV Site Right Hand Site Appearance without, redness, sw elling Size of catheter 24 gauge Type of catheter introcan, peripheral # of Attempts 2 Deaccessed catheter intact, camille ssing applied Labs drawn none due Infusion Teaching/Discharge Reviewed written dis charge instructions yes Patient voiced understanding yes Ready for discharge yes Ride Needed yes-spouse Tolerated infusion yes Time of Discharge 1500 Total Infused 100mL Infusion Flowsheet 1 Temp 97.2 Time 1405 Pulse 89 Respiration Rate 18 Blood Pressure 100/65 IV Site NA Patient State oriented, alert Rate ml/hr pump Infusion Flowsheet 2 Time 1420 infusi on started IV Site WNL, intact Patient State alert, oriented Rate ml/hr 200ml/hr Infusion Flowsheet 3 Temp 97.2 Time 1450 infusion comple te Pulse 86 Respiration Rate 18 Blood Pressure 106/94 IV Site WNL Patient State alert, oriented Rate ml/hr discontinued
--- OUTSIDE RECORDS SUMMARY | 2024-12-12 09:15 | XMS_ITS ---
Author Organization [facility] Address [address] [place], [place] [phone] Care Team Providers Care Language Assistant Name Role Phone GERALD DIXON MD Primary Care Provider Unav ailable JeanJjgun Unavailable [phone] ABEBE DIXON MD Unavailable Unavailab le RESULTS Component Value Reference Range Notes AST (SGOT) Reviewed date:12/13/2024 11:15:50 AM Interpretation: Performing Lab:[facility], Phone - [phone], Director - [facility] Notes/Report: AST (SGOT) 35 0-40 IU/L Specimen received hemolyzed. Value may be increased by hemolysis. Clinical correlation indicated. Creatinine, Serum Reviewed date:12/13/2024 11:15:50 AM Interpretation: Performing Lab:[facility], [address] [place] [address], Phone - [phone], [facility] Notes/Report: Creatinine 0.65 0.57-1.00 mg/dL eGFR 97 >59 mL/min/1.73 ALT (SGPT) Reviewed date:12/13/2024 11:15:50 AM Interpretation: Performing Lab:[facility], [address] [place] [address], Phone - [phone], [facility] Notes/Report: ALT (SGPT) 11 0-32 IU/L CBC With Differential/Platel et Reviewed date:12/13/2024 11:15:50 AM Interpretation: Performing [facility], [address] [facility], Phone - [phone], Director - [facility] Notes/Report: WBC 6.2 3.4-10.8 x10E3/uL RBC 4.21 [...] Westergren Reviewed date:12/13/2024 11:15:50 AM Interpretation: Performing [facility], [address] [facility], Phone - [phone], Director - [facility] Notes/Report: Sedimentation Rate-Westergren 33 0-40 mm/hr REASON [...] Date Provider Diagnosis [facility] [address] [id number] 12/12/2024 Josiane Pena Rheumatoid arthritis of multiple sites without rheumatoid factor M06.09 and 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 ASSESSMENTS Encounter Date Diagnosis Assessment Notes Treatment Notes Treatment Clinical Notes Section Notes 12/12/2024 Rheumatoid arthritis of multiple sites without rheumatoid factor (ICD-10 - M06.09) 12/12/2024 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 (ICD-10 - Z79.899) PLAN OF TREATMENT Next Appt Details Provider Name:Josiane Pena, 02:00:00 PM, [address] [facility], [place] [address], [place], [place], [phone], Provider Name:Marianneleticia Velasquez, 01/30/2025 03:40:00 PM, [address] [facility], [place] [address], [place], [place], [phone], Procedure Notes * Category Sub-Category Detail Notes Orencia Infusion Treatment Number: 13+ PPD negative Infection/Date/Tx denies Live Vaccines denies Recent Procedures denies Previous Reactions denies Premedications/Time/Route none Number of Vials 3 VIALS 750MG DOSE ( 250MG VIAL X 3) Orencia Lot Number: [id number] EXP 12/2026 (3-250mg) IV Site Left Hand [...]
--- OUTSIDE RECORDS SUMMARY | 2024-12-24 09:41 | XMS_ITS ---
Author Organization [facility] [facility] Address [address] [place] [phone] Care Team Providers Care Medical And Scientific Illustrator Name Role Phone GERALD DIXON MD Primary Care Provider Unav ailable Josiane Pena Unavailable [phone] ABEBE DIXON MD Unavailable Unavailab le REASON FOR VISIT flu vac? Encounters Encounter Location Date Provider Diagnosis [facility] [address], [facility] [address] [place], [place] [phone] 12/24/2024 Josiane Pena PLAN OF TREATMENT Next Appt Details Provider Name:oJsiane Pena, 02:00:00 PM, [address], [facility] [address], [place], [place], [phone], Provider Name:Marianne Velasquez, 01/30/2025 03:40:00 PM, [address], [facility] [address], [place], [place], [phone],
--- OUTSIDE RECORDS SUMMARY | 2024-12-31 03:59 | XMS_ITS ---
Author Organization [facility] [employer] [facility] [employer] Address [address] [place], [place] [phone] Care Team Providers Care Supervisor Printing Shop Name Role Phone GERALD DIXON MD Primary Care Provider Unav ailable Josiane Pena Unavailable [phone] ABEBE DIXON MD Unavailab le MEDICATIONS Medication SIG (Take, Route, Fr equency, Duration) Notes Start Date End Date Status traMADol 50 mg 2 tab(s) orally 3 ti mes a day as needed for 30 days 12/31/2024 Active Encounters Encounter Location Date Provider Diagnosis [facility], [address], [address] [place], [place] [phone] 12/31/2024 Josiane Pena Primary generalized (osteo)arthritis M15.0 ASSESSMENTS Encounter Date Diagnosis Assessment Notes Treatment Notes Treatment Clinical Notes Section Notes 12/31/2024 Primary generalized (osteo)arthritis (ICD-10 - M15.0) PLAN OF TREATMENT Medication Medication Name Sig Start Date Stop Date Notes traMADol 50 mg 2 tab(s) orally 3 ti mes a day as needed for 30 days 12/31/2024 Next Appt Details Provider Name:Josiane Pena, 02:00:00 PM, [address], [address], [place], [place], [phone], Provider Name:Marianne Velasquez, 01/30/2025 03:40:00 PM, [address], [address], [place], [place], [phone],
--- OUTSIDE RECORDS SUMMARY | 2025-01-01 11:00 | XMS_ITS ---
Author Organization [facility] [employer] [employer] Address [address] [place], [place] [phone] Care Team Providers Care Bilingual Middle School Teacher Name Role Phone GERALD DIXON MD Primary Care Provider Unav ailable Josiane Pena Unavailable [phone] ABEBE DIXON MD Unavailable Unavailab Marianne De Anda Unavailable [phone] ALLERGIES No Known Allergies MEDICATIONS Medication SIG (Take, Route, Frequency, Duration) Notes Start Date End Date Status Xiidra 5% 1 gtt eye as directed Active Tylenol [facility] Caplet as directed orally prn Active Vitamin B12 1000 mcg 1 tab(s) orally once a day Active pravastatin 20 mg 1 tab(s) orally once a day (at bedtime) Active Orencia 250 mg 750mg/kg intravenous ly every 4 weeks Active traMADol 50 mg 2 tab(s) orally 3 ti mes a day as needed for 30 days 07/02/2024 Active gabapentin 300 mg 1 cap(s) orally 3 ti mes a day for 90 days Active Vitamin D2 (obsolete) 50,000 intl units 1 cap(s) orally once a week for 90 days Active Mounjaro Active glimepiride 1 mg 1 tab(s) orally once a day Active sulfaSALAzine 500 mg 1 tab(s) orally 2 t imes a day for 30 day(s) 06/18/2024 Active SOCIAL HISTORY Tobacco Use: Social History Observation Description Date Details (start date - stop date) Never Smoker NA - NA Sex Assigned At : Social History Observation Description Sex Assigned At Unknown Tobacco Use: Question Answer Notes Smoking Status nonsmoker VITAL SIGNS BMI 32.95 kg/m2 01/01/2025 Blood pressure systolic 99 mm Hg 01/02/20 25 Blood pressure diastolic 64 mm Hg 025 Heart Rate 92 /min 01/01/2025 Height 64 in 01/01/2025 Weight 192 lbs 01/01/2025 Encounters Encounter Location Date Provider Diagnosis [facility], [address] [place], [place] [phone] 01/01/2025 Marianne Velasquez Rheumatoid arthritis of multiple sites without rheumatoid factor M06.09 ; Primary generalized (osteo)arthritis M15.0 ; Other prison (current) drug therapy Z79.899 ; Encounter for screening for nutritional disorder Z13.21 ; Encounter for screening for respiratory tuberculosis Z11.1 ; Encounter for other specified special examinations Z01.89 ; Lymphadenopathy R59.1 ; History of recent fall Z91.81 ; Acute bilateral low back pain without sciatica M54.50 and Dysuria R30.0 ASSESSMENTS Encounter Date Diagnosis Assessment Notes Treatment Notes Treatment Clinical Notes Section Notes 01/01/2025 Rheumatoid arthritis of multiple sites without rheumatoid factor (ICD-10 - M06.09) Stop SSZ 1 tab and stop Orencia infusions for RA. She is referred to [facility] at [facility] due to tremors in her left hand and arm. , Labwork drawn to evaluate disease process and to monitor any try adverse effects of medications. 01/01/2025 Primary generalized (osteo)arthritis (ICD-10 - M15.0) Stop SSZ 1 tab and stop Orencia infusions for RA. She is referred to [facility] at [facility] due to tremors in her left hand and arm. , Labwork drawn to evaluate disease process and to monitor any try adverse effects of medications. 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 She is referred to [facility] at [facility] due to tremors in her left hand and arm. , Labwork drawn to evaluate disease process and to monitor any try adverse effects of medications. 01/01/2025 Encounter for screening for nutritional disorder (ICD-10 - Z13.21) Stop SSZ 1 tab and stop Orencia infusions for RA. She is referred to [facility] at [facility] due to tremors in her left hand and arm. , Labwork drawn to evaluate disease process and to monitor any try adverse effects of medications. 01/01/2025 Encounter for screening for respiratory tuberculosis (ICD-10 - Z11.1) Stop SSZ 1 tab and stop Orencia infusions for RA. She is referred to [facility] at [facility] due to tremors in her left hand and arm. , Labwork drawn to evaluate disease process and to monitor any try adverse effects of medications. 01/01/2025 Encounter for other specified special examinations (ICD-10 - Z01.89) Stop SSZ 1 tab and stop Orencia infusions for RA. She is referred to [facility] at [facility] due to tremors in her left hand and arm. , Labwork drawn to evaluate disease process and to monitor any try adverse effects of medications. 01/01/2025 Lymphadenopathy (ICD-10 - R59.1) Stop SSZ 1 tab and stop Orencia infusions for RA. She is referred to [facility] at [facility] due to tremors in her left hand and arm. , Labwork drawn to evaluate disease process and to monitor any try adverse effects of medications. 01/01/2025 History of recent fall (ICD-10 - Z91.81) Stop SSZ 1 tab and stop Orencia infusions for RA. She is referred to [facility] at [facility] due to tremors in her left hand and arm. , Labwork drawn to evaluate disease process and to monitor any try adverse effects of medications. 01/01/2025 Acute bilateral low back pain without sciatica (ICD-10 - M54.50) Stop SSZ 1 tab and stop Orencia infusions for RA. She is referred to [facility] at [facility] due to tremors in her left hand and arm. , Labwork drawn to evaluate disease process and to monitor any try adverse effects of medications. 01/01/2025 Dysuria (ICD-10 - R30.0) Stop SSZ 1 tab and stop Orencia infusions for RA. She is referred to [facility] at [facility] due to tremors in her left hand and arm. , Labwork drawn to evaluate disease process and to monitor any try adverse effects of medications. PLAN OF TREATMENT Pending Test Test Name Order Date X ray : Spines, lumbar- outside order -Xray slip given 01/01/2025 Urinalysis, Complete 01/01/2025 Next Appt Details Follow Up: 4 Weeks, Reason: Provider Name:Josiane Pena, 02:00:00 PM, [address] [facility], [address], [place], [place], [phone], Provider Name:Marianne Velasquez, 01/30/2025 03:40:00 PM, [address] [facility], [address], [place], [place], [phone], Progress Notes * Examination Category Sub-Category Detail Notes Category Not es General Constitutional: NAD HEENT: PERRLA Cardiovascular RSR, normal S1 S2 Lungs: clear to ausculation Abdomen: soft, no organomegal y or masses Skin: no rash,no skin tigh tening Neurological: normal sensation and strength. Left hand tremor. Psych: alert, oriented x 3, affect normal Musculoskeletal: Strength 5/5 Joint Exam Shoulders bilateral, 2+ tenderness, de creased ROM Wrists No swelling. No tend erness. NROM., No instability or deformity. Knees No swelling, no tend erness, NROM., No instability or deformity. Ankles No swelling, no tend erness, NROM., No instability or deformity. All MCPs bilateral 2nd and 3r d MCP, 1+ swelling All PIPs No swelling, no tend erness, no deformity unless noted below. All MTPs bilateral, 1+ swelli ng, 1+ tenderness RA nodules in her left MTPs. , hammertoe deformities in her left Alarm Technician Left hand drop tester weake r that right hand drop tester. History and Physical Notes * HPI (History of Present Illness) Category Sub-Category Detail Notes Category Not es Rheumatoid Arthritis Joint pain Patient is here for a follow up for treatment of RA and OA. She is tolerating Orencia infusions. She reports minor flares. SHe flares about a week before her infusion. She has a bunion and hammer toes in her left foot. Fuel Quality Tech refused to due surgery due to osteopenia. She denies any fever or infections. She was found to have bulging cervical disc. She was started PT and referred to Dr. Lim, pain management. He gave her a epidural injection and that helped. She continue to have a tremor in her left arm. Neurologist was unsure the cause. She never looked into [facility]. SSZ caused hot flashes. She stopped it. She is able to lift her left shoulder now. She has a noted cyst in her left upper arm. She reports one on her subclavian, but I could not feels it. Joint Swelling feet Medication problems Morning stiffness 2 hours Physical Examination Category Sub-Category Detail Notes Section Note s MDHAQ Summary Function (0-10):: 6.3 Pain (0-10):: 9 Patient Global Assessment of Disease Activity (0 -10):: 9.5 RAPID3 Score (0-30):: 24.8 Physician Global Assessment of Disease Activity (0-10):: 3 Prognosis Very Good w/tx Erosive Damage No
--- NOTE | ~2025-01-03 | XR_ITS ---
XR lumbar spine 2-3V Indication: Hx of recent fall, Acute bl low back pain w/o sciatica Comparison: None Findings: Postsurgical changes noted with fixation of the pelvis, S1, L5, L4, L3, L2, L1 and the visualized thoracic spine, no fracture is identified, moderate osteopenia noted. Moderate to severe loss of disc height throughout. Soft tissues unremarkable Impression: Postsurgical changes detailed above, no acute fracture Reviewed, dictated and finalized at location P. Impression: Postsurgical changes detailed above, no acute fracture
[2025-01-03 15:35] LABS: Add Urine Microscopic? YES; Appearance Urine Clear (Clear); Glucose Urine UA Negative (Negative); Leukocyte Esterase Ur 1+ (Negative); Nitrate Urine Negative (Negative); Specific Grav Ur >= 1.030 (1.010-1.020)
--- OUTSIDE RECORDS SUMMARY | 2025-01-03 17:18 | XMS_ITS | Clinical Summary ---
Author Organization [facility] Address [address] [place] [address] Phone Care Team Providers Care Dietetic Technician Registered Name Role Phone Alf Burnette MD Primary Care Provider [phone]- [phone] Allergies No known active allergies Medications cetirizine [...] on file Legal Sex Female 5:59 AM EXCHANGE CONSULTANT Gender Identity Not on file Sexual Orientation Not on file Last Filed Vital Signs Vital Sign Reading Time Taken Comments Blood Pressure 135/86 04/29/2014 10:30 AM EXCHANGE CONSULTANT Pulse 92 04/29/2014 10:30 AM EXCHANGE CONSULTANT Temperature 36.6 C (97.9 F) 04/29/2014 10:30 AM EXCHANGE CONSULTANT Respiratory Rate 20 04/29/2014 10:30 AM EXCHANGE CONSULTANT Oxygen Saturation 97% 09/17/2010 8:00 AM CDT Inhaled Oxygen Concentration - - Weight 106.1 kg (234 lb) 04/29/2014 10:30 AM EXCHANGE CONSULTANT Height 162.6 cm (5' 4) 04/29/2014 10:30 AM EXCHANGE CONSULTANT Body Mass Index 40.17 04/29/2014 10:30 AM EXCHANGE CONSULTANT Plan of Treatment Health Maintenance Due Date [...] 2008 OSTEOPOROSIS SCREENING 07/29/2023 INFLUENZA VACCINE (#1) 2024 RSV VACCINE (60+ or ) (1 - 1-dose 75+ series) 2033 Medical Devices Implanted Type Area Electric Locomotive Firer/Fireman Device Identifier Shelf Expiration Date Model / Serial / Lot Log 39978 - Cement - 1 - Cement [place] G-Hv 40g [id number] Implanted:Qty: 1 on 06/02/2010 at [facility] Cement Left: Knee [employer] 11/20/2011 [id number] / / [id number] Log [id number] - Cement - 1 - Cement [place] G-Hv 40g [id number] Implanted:Qty: 1 on 09/15/2010 at [facility] Cement Right: Knee [employer] 01/20/2012 [id number] / / [id number] Log 42153 - Biomet Vanguard Complete Knee System - 1 - Patella 3peg Series A [id number] Implanted:Qty: 1 on 06/02/2010 at [facility] Knee Left: Knee [employer] 03/21/2015 [id number] / / [id number] Log 55554 - Biomet Vanguard Complete Knee System - 1 - Plate Tib Cocr Finned 67mm [id number] Implanted:Qty: 1 on 06/02/2010 at [facility] Knee Left: Knee [employer] 01/20/2020 [id number] / / [id number] Log 36596 - Biomet Vanguard Complete Knee System - 1 - Fem Vng Open Box 62.5mm Lt [id number] Implanted:Qty: 1 on 06/02/2010 at [facility] Knee Left: Knee [employer] 04/21/2020 [id number] / / [id number] Log 05315 - Biomet Vanguard Complete Knee System - 1 - Bearing Tib Vngrd Epoly Ps [id number] Implanted:Qty: 1 on 06/02/2010 at [facility] Knee Left: Knee [employer] 09/18/2014 [id number] / / [id number] Description:Epoly bearing is not part of total knee cap pricing,will be charged separately Log [id number] - Biomet Vanguard Complete Knee System - 1 - Bearing Tib Vngrd Epoly Ps [id number] Implanted:Qty: 1 on 09/15/2010 at [facility] Knee Right: Knee [employer] 02/18/2015 [id number] / / [id number] Description:Epoly bearing is not part of total knee cap pricing,will be charged separately. Log 182970 - Biomet Vanguard Complete Knee System - 1 - Patella 3peg Series A [id number] Implanted:Qty: 1 on 09/15/2010 at [facility] Knee Right: Knee [employer] 06/20/2015 [id number] / / [id number] Log 133698 - Biomet Vanguard Complete Knee System - 1 - Plate Tib Cocr Finned 71mm [id number] Implanted:Qty: 1 on 09/15/2010 at [facility] Knee Right: Knee [employer] 06/19/2020 [id number] / / [id number] Log 454161 - Biomet Vanguard Complete Knee System - 1 - Comp Fem Vng Ps Opn Bx Rt [id number] Implanted:Qty: 1 on 09/15/2010 at [facility] Knee Right: Knee [employer] 06/19/2020 [id number] / / [id number] Femoral Pegs Implanted:Qty: 1 on 06/02/2010 at [facility] Left: Knee [employer] 04/21/2020 [id number] / / [id number] Description:Femoral pegs are not part of total knee cap pricing,will be charged separately. Femoral Pegs Implanted:Qty: 1 on 09/15/2010 at [facility] Right: Knee [employer] 08/19/2020 [id number] / / [id number] Description:Femoral pegs are not part of total knee cap pricing,will be charged separately. Insurance [employer] [facility] [place] Address: [facility] [id number] [place] [address] Advance Directives For more information, please contact: [phone] Documents on File Type Date Recorded Patient Business Process Associate Expl anation Advance Directive Living Will 06/07/2010 [...] 10:23 AM 06/02/2010 3:55 PM Care Teams Dietetic Technician Registered Relationship Specialty Start Date End Date Alf Burnette MD PCP - General Family Practice 05/19/10
--- OUTSIDE RECORDS SUMMARY | 2025-01-03 17:18 | XMS_ITS | Patient Health Record ---
Author Organization [facility] [employer] Address [address] [place], [place] [id number] Care Team Providers Care [employer] Scout Name Role Phone GERALD DIXON MD Primary Care Provider Unav ailable Josiane Pena Unavailable [phone] ABEBE DIXON MD Unavailable Unavailab Marianne De Anda Unavailable [phone] ALLERGIES No Known Allergies RESULTS Component Value Reference Range Notes QUANTIFERON(R)-TB GOLD PLUS, 1 TUBE Reviewed date:02/01/2024 10:23:33 AM Interpretation: [facility], [address] [place] [address], Phone - [phone], Director - PhDRicchirichii Notes/Report: QuantiFERON Incubation Incubation performed. QuantiFERON-TB Gold Plus Negative Negative No response to M tuberculosis antigens detected. Infection with M tuberculosis is unlikely, but high risk individuals should be considered for additional testing (ATS/IDSA/CDC Clinical Practice Guidelines, 2017). The reference range is an Antigen minus Nil result of <0.35 IU/mL. Chemiluminescence immunoassay methodology QuantiFERON Criteria QuantiFERON-TB Gold Plus is a qualitative indirect test for M tuberculosis infection (including disease) and is intended for use in conjunction with risk assessment, radiography, and other medical and diagnostic evaluations. The QuantiFERON-TB Gold Plus result is determined by subtracting the Nil value from either TB antigen (Ag) value. The Mitogen tube serves as a control for the test. QuantiFERON TB1 Ag Value 0.04 QuantiFERON TB2 Ag Value 0.04 QuantiFERON Nil Value 0.03 QuantiFERON Mitogen Value >10.00 AST (SGOT) Reviewed date:03/15/2024 08:59:57 AM Interpretation: Performing Lab:[address], Phone - [phone], [facility] Notes/Report: AST (SGOT) 15 0-40 IU/L Creatinine, Serum Reviewed date:03/15/2024 08:59:57 AM Interpretation: Performing Lab:[address], Phone - [phone], [facility] Notes/Report: Creatinine 0.76 0.57-1.00 mg/dL eGFR 87 >59 mL/min/1.73 ALT (SGPT) Reviewed date:03/15/2024 08:59:57 AM Interpretation: Performing Lab:[address], Phone - [phone], [facility] Notes/Report: ALT (SGPT) 13 0-32 IU/L CBC With Differential/Platel et Reviewed date:03/15/2024 08:59:57 AM Interpretation: Performing Lab:[address], Phone - [phone], [facility] Notes/Report: WBC 6.5 3.4-10.8 x10E3/uL RBC 4.84 3.77-5.28 x10E6/uL Hemoglobin 15.1 11.1-15.9 g/dL Hematocrit 46.0 34.0-46.6 % MCV 95 79-97 fL MCH 31.2 26.6-33.0 pg MCHC 32.8 31.5-35.7 g/dL RDW 11.5 11.7-15.4 % Platelets 264 150-450 x10E3/uL Neutrophils 57 Not Estab. % Lymphs 33 Not Estab. % Monocytes 6 Not Estab. % Eos 2 Not Estab. % Basos 1 Not Estab. % Immature Cells Neutrophils (Absolute) 3.8 1.4-7.0 x10E3/uL Lymphs (Absolute) 2.1 0.7-3.1 x10E3/uL Monocytes(Absolute) 0.4 0.1-0.9 x10E3/uL Eos (Absolute) 0.1 0.0-0.4 x10E3/uL Baso (Absolute) 0.0 0.0-0.2 x10E3/uL Immature Granulocytes 1 Not Estab. % Immature Grans (Abs) 0.0 0.0-0.1 x10E3/uL NRBC Hematology Comments: Sed Rate - Westergren Reviewed date:03/15/2024 08:59:57 AM Interpretation: Performing Lab:[facility] [address] [place] [address], Phone - [phone], [facility] Notes/Report: Sedimentation Rate-Westergren 28 0-40 mm/hr C-Reactive Protein, Quant Reviewed date:03/15/2024 08:59:57 AM Interpretation: Performing Lab:[facility] [place], [address] [place] [address], Phone - [phone], [facility] Notes/Report: C-Reactive Protein, Quant 8 0-10 mg/L VITAMIN D, 25-HYDROXY, LC/MS /MS Reviewed date:03/15/2024 08:59:57 AM Interpretation: Performing Lab:[facility] [place], [address] [place] [address], Phone - [phone], [facility] Notes/Report: Vitamin D, 25-Hydroxy 56.7 30.0-100.0 ng/mL Vitamin D deficiency has been defined by the [place] of [employer] and an Endocrine Society practice guideline as a level of serum 25-OH vitamin D less than 20 ng/mL (1,2). The Endocrine Society went on to further define vitamin D insufficiency as a level between 21 and 29 ng/mL (2). 1. IOM ([place] of [employer]). 2010. Dietary reference intakes for calcium and D. [place]: The National Academies Press. 2. Sultana MF, Paloma [place], Jerome-Dany HAWKINS, et al. Evaluation, treatment, and prevention of vitamin D deficiency: an Endocrine Society clinical practice guideline. JCEM. 2010; 96(7):1911-30. AST (SGOT) Reviewed date:05/30/2024 09:04:22 AM Interpretation: Performing Lab:[facility] [address] [place] [address], Phone - [phone], Director [facility] Notes/Report: AST (SGOT) 15 0-40 IU/L Creatinine, Serum Reviewed date:05/30/2024 09:04:22 AM Interpretation: Performing Lab:[address], Phone - [phone], [facility] Notes/Report: Creatinine 0.63 0.57-1.00 mg/dL eGFR 98 >59 mL/min/1.73 ALT (SGPT) Reviewed date:05/30/2024 09:04:22 AM Interpretation: Performing Lab:[address], Phone - [phone], [facility] Notes/Report: ALT (SGPT) 9 0-32 IU/L CBC With Differential/Platel et Reviewed date:05/30/2024 09:04:23 AM Interpretation: Performing Lab:[address], Phone - [phone], [facility] Notes/Report: WBC 7.9 3.4-10.8 x10E3/uL RBC 4.65 3.77-5.28 x10E6/uL Hemoglobin 14.6 11.1-15.9 g/dL Hematocrit 43.3 34.0-46.6 % MCV 93 79-97 fL MCH 31.4 26.6-33.0 pg MCHC 33.7 31.5-35.7 g/dL RDW 12.5 11.7-15.4 % Platelets 252 150-450 x10E3/uL Neutrophils 64 Not Estab. % Lymphs 28 Not Estab. % Monocytes 6 Not Estab. % Eos 1 Not Estab. % Basos 1 Not Estab. % Immature Cells Neutrophils (Absolute) 5.1 1.4-7.0 x10E3/uL Lymphs (Absolute) 2.2 0.7-3.1 x10E3/uL Monocytes(Absolute) 0.5 0.1-0.9 x10E3/uL Eos (Absolute) 0.1 0.0-0.4 x10E3/uL Baso (Absolute) 0.0 0.0-0.2 x10E3/uL Immature Granulocytes 0 Not Estab. % Immature Grans (Abs) 0.0 0.0-0.1 x10E3/uL NR Hematology Comments: Joseph Griggs Reviewed date:05/30/2024 09:04:23 AM Interpretation: Performing Lab:[address], Phone - [phone], [facility] Notes/Report: Sedimentation Rate-Westergren 44 0-40 mm/hr Hep B Surface Ab qualatative Reviewed date:06/12/2024 09:57:02 AM Interpretation: Performing Lab:[address], Phone - [phone], [facility] Notes/Report: Hep B Surface Ab, Qual Non Reactive Non Reactive: Not immune to HBV infection. Equivocal: Unable to determine if anti-HBs is present at levels consistent with immunity. Reactive: Anti-HBs concentration detected at greater than 10 mIU/mL. Individual is considered to be immune to infection with HBV. Acute Hepatitis Reviewed date:06/12/2024 09:57:02 AM Interpretation: Performing Lab:[address], Phone - [phone], [facility] Notes/Report: Hep A Ab, IgM Negative Negative A negative anti-HAV IgM result suggests no recent or current HAV infection. HBsAg Screen Negative Negative Hep B Core Ab, IgM Negative Negative HCV Ab Non Reactive Non Reactive Interpretation: Not infected with HCV unless early or acute infection is suspected (which may be delayed in an immunocompromised individual), or other evidence exists to indicate HCV infection. Joseph Griggs Reviewed date:08/09/2024 08:50:38 PM Interpretation: Performing Lab:[address], Phone - [phone], [facility] Notes/Report: Sedimentation Rate-Westergren 31 0-40 mm/hr JULIET Panel (JULIET+NETTIE+Scl 70+Sj Ivy+SjoSSB) Reviewed date:08/09/2024 08:50:38 PM Interpretation: Performing Lab:[address], Phone - [phone], [facility] Notes/Report: JULIET by IFA Rfx Titer/Pattern Negative Negative <1:80 Borderline 1:80 Positive >1:80 ICAP nomenclature: AC-0 For more information about Hep-2 cell patterns use ANApatterns.org, the official website for the International Consensus on Antinuclear Antibody (JULIET) Patterns (ICAP). SAW FILER Antibodies <0.2 0.0-0.9 AI Shankar Antibodies <0.2 0.0-0.9 AI Antiscleroderma-70 Antibodies <0.2 0.0-0.9 AI Sjogren's Anti-SS-A <0.2 0.0-0.9 AI Sjogren's Anti-SS-B <0.2 0.0-0.9 AI IMMUNOFIXATION, SERUM free l ight chains rm temp Reviewed date:08/09/2024 08:50:38 PM Interpretation: Performing Lab:[facility], Phone - [phone], Director [facility] Notes/Report: Free [place] Lt Chains,S 19.3 3.3-19.4 mg/L Free Lambda Lt Chains,S 13.9 5.7-26.3 mg/L [place]/Lambda Ratio,S 1.39 0.26-1.65 SPEPW/Interpretation w/refle x Reviewed date:08/09/2024 08:50:38 PM Interpretation: Performing Lab:[facility] [address] [facility], [place], Phone - [phone], Director [facility] Notes/Report: Protein, Total 6.8 6.0-8.5 g/dL Albumin 3.8 2.9-4.4 g/dL Vrnob-8-Jvuzfasm 0.2 0.0-0.4 g/dL Owadi-6-Imylsgci 0.8 0.4-1.0 g/dL Beta Globulin 0.9 0.7-1.3 g/dL Gamma Globulin 1.2 0.4-1.8 g/dL M-Marin Not Observed Not Observed g/dL Globulin, Total 3.0 2.2-3.9 g/dL A/G Ratio 1.3 0.7-1.7 Please note: Protein electrophoresis scan will follow via computer, mail, or endodontics dentist delivery. Interpretation(See Below) The SPE pattern appears unremarkable. Evidence of monoclonal protein is not apparent. PDF . DS DNA-CRITHIDIA IFA W/REFLE X TO TITER-[facility] Reviewed date:08/09/2024 08:50:38 PM Interpretation: Performing Lab:[address], Phone - [phone], [facility] Notes/Report: dsDNA Crithidia luciliae IFA Negative Negative PDF Report Reviewed date:08/09/2024 08:50:38 PM Interpretation: Performing Lab:[address], Phone - [phone], [facility] Notes/Report: PDF Report1 LCLS AST (SGOT) Reviewed date:09/19/2024 08:11:56 AM Interpretation: Performing Lab:[address], Phone - [phone], [facility] Notes/Report: AST (SGOT) 14 0-40 IU/L Creatinine, Serum Reviewed date:09/19/2024 08:11:56 AM Interpretation: Performing Lab:[address], Phone - [phone], [facility] Notes/Report: Creatinine 0.62 0.57-1.00 mg/dL eGFR 98 >59 mL/min/1.73 ALT (SGPT) Reviewed date:09/19/2024 08:11:56 AM Interpretation: Performing Lab:[address], Phone - [phone], Director [facility] Notes/Report: ALT (SGPT) 9 0-32 IU/L CBC With Differential/Platel et Reviewed date:09/19/2024 08:11:56 AM Interpretation: Performing Lab:[address], Phone - [phone], [facility] Notes/Report: WBC 6.4 3.4-10.8 x10E3/uL RBC 4.48 3.77-5.28 x10E6/uL Hemoglobin 14.3 11.1-15.9 g/dL Hematocrit 43.3 34.0-46.6 % MCV 97 79-97 fL MCH 31.9 26.6-33.0 pg MCHC 33.0 31.5-35.7 g/dL RDW 12.8 11.7-15.4 % Platelets 249 150-450 x10E3/uL Neutrophils 56 Not Estab. % Lymphs 34 Not Estab. % Monocytes 8 Not Estab. % Eos 1 Not Estab. % Basos 1 Not Estab. % Immature Cells Neutrophils (Absolute) 3.6 1.4-7.0 x10E3/uL Lymphs (Absolute) 2.2 0.7-3.1 x10E3/uL Monocytes(Absolute) 0.5 0.1-0.9 x10E3/uL Eos (Absolute) 0.1 0.0-0.4 x10E3/uL Baso (Absolute) 0.0 0.0-0.2 x10E3/uL Immature Granulocytes 0 Not Estab. % Immature Grans (Abs) 0.0 0.0-0.1 x10E3/uL NRBC Hematology Comments: Hep B Surface Ab qualatative Reviewed date:09/19/2024 08:11:56 AM Interpretation: Performing Lab:[facility] [place], [address] [facility], Phone - [phone], Director [facility] Notes/Report: Hep B Surface Ab, Qual Non Reactive Non Reactive: Not immune to HBV infection. Equivocal: Unable to determine if anti-HBs is present at levels consistent with immunity. Reactive: Anti-HBs concentration detected at greater than 10 mIU/mL. Individual is considered to be immune to infection with HBV. QUANTIFERON(R)-TB GOLD PLUS, 1 TUBE Reviewed date:09/19/2024 08:11:56 AM Interpretation: Performing Lab:[facility] [place], [address] [facility], Phone - [phone], Director [facility] Notes/Report: QuantiFERON Incubation Incubation performed. QuantiFERON-TB Gold Plus Negative Negative No response to M tuberculosis antigens detected. Infection with M tuberculosis is unlikely, but high risk individuals should be considered for additional testing (ATS/IDSA/CDC Clinical Practice Guidelines, 2017). The reference range is an Antigen minus Nil result of <0.35 IU/mL. Chemiluminescence immunoassay methodology QuantiFERON Criteria QuantiFERON-TB Gold Plus is a qualitative indirect test for M tuberculosis infection (including disease) and is intended for use in conjunction with risk assessment, radiography, and other medical and diagnostic evaluations. The QuantiFERON-TB Gold Plus result is determined by subtracting the Nil value from either TB antigen (Ag) value. The Mitogen tube serves as a control for the test. QuantiFERON TB1 Ag Value 0.07 QuantiFERON TB2 Ag Value 0.06 QuantiFERON Nil Value 0.06 QuantiFERON Mitogen Value >10.00 Acute Hepatitis Reviewed date:09/19/2024 08:11:56 AM Interpretation: Performing Lab:[address], Phone - [phone], [facility] Notes/Report: Hep A Ab, IgM Negative Negative A negative anti-HAV IgM result suggests no recent or current HAV infection. HBsAg Screen Negative Negative Hep B Core Ab, IgM Negative Negative HCV Ab Non Reactive Non Reactive Interpretation: Not infected with HCV unless early or acute infection is suspected (which may be delayed in an immunocompromised individual), or other evidence exists to indicate HCV infection. AST (SGOT) Reviewed date:12/13/2024 11:15:50 AM Interpretation: Performing Lab:[address], Phone - [phone], [facility] Notes/Report: AST (SGOT) 35 0-40 IU/L Specimen received hemolyzed. Value may be increased by hemolysis. Clinical correlation indicated. Creatinine, Serum Reviewed date:12/13/2024 11:15:50 AM Interpretation: Performing Lab:[address], Phone - [phone], [facility] Notes/Report: Creatinine 0.65 0.57-1.00 mg/dL eGFR 97 >59 mL/min/1.73 ALT (SGPT) Reviewed date:12/13/2024 11:15:50 AM Interpretation: Performing Lab:[address], Phone - [phone], [facility] Notes/Report: ALT (SGPT) 11 0-32 IU/L CBC With Differential/Platel et Reviewed date:12/13/2024 11:15:50 AM Interpretation: Performing Lab:[address], Phone - [phone], [facility] Notes/Report: WBC 6.2 3.4-10.8 x10E3/uL [...] x10E3/uL NRBC Hematology Comments: Sed Rate - Indu Reviewed date:12/13/2024 11:15:50 AM Interpretation: Performing Lab:[facility] [place], [address] [facility], Phone - [phone], Director - [place] Notes/Report: Sedimentation Rate-Indu 33 0-40 mm/hr REASON FOR REFERRAL Reason orencia Diagnosis 1 Rheumatoid arthritis of multiple sites without rheumatoid factor (M06.09) Referral Organization [facility] [employer] Referring Provider First Name Josiane Referring Provider Last Name Jean Referring Provider Speciality Rheumatolo gy Referred Organization [facility] [employer] [employer] Referred Provider Josiane Pena Referred Address [address] [address] [place] [address],[place], [id number], Referred Provider Specialty Rheumatology Referral Priority Routine MEDICATIONS Medication SIG (Take, Route, Frequency, Duration) Notes Start Date End Date Status Xiidra 5% 1 gtt eye as directed Active Tylenol [facility]let as directed orally prn Active traMADol 50 mg 2 tab(s) orally 3 ti mes a day as needed for 30 days 07/02/2024 Active Vitamin B12 1000 mcg 1 tab(s) orally once a day Active pravastatin 20 mg 1 tab(s) orally once a day (at bedtime) Active Orencia 250 mg 750mg/kg intravenous ly every 4 weeks Active gabapentin 300 mg 1 cap(s) orally [...] Use: Question Answer Notes Smoking Status nonsmoker PROBLEMS Problem Type ICD Code Onset Dates Problem Status W/U Status Risk SNOMED Code Notes Problem Osteoarthrosis (715.09) Active confirmed Osteoarthrosis (533077246) Problem Other intermodal customer service (current) drug therapy (Z79.899) Active confirmed 737929690 Problem Cervicalgia (M54.2) Active confirmed 04761773 Problem Rheumatoid arthritis of multiple sites without rheumatoid factor (M06.09) Active confirmed 078184082 Problem Primary generalized (osteo)arthritis (M15.0) Active confirmed 482201205 Problem snf current use of non-steroidal anti-inflammatori es (NSAID) (Z79.1) Active confirmed 320731757 Problem Non-smoker (Z78.9) Active confirmed 7049950 Problem Paresthesia (R20.2) Active confirmed Paresthesia (33619911) Problem Facial rash (R21) Active confirmed 2718 82607 Problem Oropharyngeal dysphagia (R13.12) Active confirmed 57058935 VITAL SIGNS Heart Rate 92 /min 01/01/2025 Temperature 97.7 degrees Fahrenheit 12/12/2024 Blood pressure diastolic 64 mm Hg 01/01/2025 Height 64 in 01/01/2025 Blood pressure systolic 99 mm Hg 01/01/2025 Weight 192 lbs 01/01/2025 BMI 32.95 kg/m2 01/01/2025 Encounters Encounter Location Date Provider Diagnosis [facility] [address], [facility] [address] [place], [place] [id number] 01/12/2024 Akgun Jean Rheumatoid arthritis of multiple sites without rheumatoid factor M06.09 [facility] [address], [address] [place], [place] [id number] 01/26/2024 Akgun Jean Rheumatoid arthritis of multiple sites without rheumatoid factor M06.09 and Screening for tuberculosis Z11.1 [facility] [address], [address] [place], [place] [id number] 02/23/2024 Akgun Jean [facility] [address], [address] [place], [place] [id number] 03/12/2024 Akgun Jean Rheumatoid arthritis of multiple sites without rheumatoid factor M06.09 and Other intermodal customer service (current) drug therapy Z79.899 [facility] [address], [address] [place], [place] [id number] 04/09/2024 Akgun Jean [facility] [address], [address] [place], [place] [id number] 05/07/2024 Akgun Jean [facility] [address], [address] [place] [id number] 04/26/2024 Akgun Jean Rheumatoid arthritis of multiple sites without rheumatoid factor M06.09 [facility] [address], [address] [place], [place] [id number] 05/28/2024 Akgun Jean Rheumatoid arthritis of multiple sites without rheumatoid factor M06.09 and Other detention (current) drug therapy Z79.899 [facility] [address], [address] [place], [place] [id number] 06/25/2024 Akgun Jean Rheumatoid arthritis of multiple sites without rheumatoid factor M06.09 [facility] [address], [address] [place], [place] [id number] 07/23/2024 Akgun Jean Rheumatoid arthritis of multiple sites without rheumatoid factor M06.09 [facility] [address], [facility] [address] [place], [place] [id number] 08/20/2024 Akgun Jean Rheumatoid arthritis of multiple sites without rheumatoid factor M06.09 [facility] [address], [address] [place] [id number] 09/17/2024 Akgun Jean Rheumatoid arthritis of multiple sites without rheumatoid factor M06.09 ; Encounter for screening for respiratory tuberculosis Z11.1 ; Encounter for other specified special examinations Z01.89 and Other intermodal customer service (current) drug therapy Z79.899 [facility] [address], [address] [place] [id number] 10/15/2024 Akgun Jean Rheumatoid arthritis of multiple sites without rheumatoid factor M06.09 [facility] [address], [address] [place], [place] [id number] 11/14/2024 Akgun Jean Rheumatoid arthritis of multiple sites without rheumatoid factor M06.09 [facility] [address], [address] [place] [id number] 12/12/2024 Akgun Jean Rheumatoid arthritis of multiple sites without rheumatoid factor M06.09 and Other intermodal customer service (current) drug therapy Z79.899 [facility] [address], [address] [place] [id number] 03/07/2024 Marianne Hartig Rheumatoid arthritis of multiple sites without rheumatoid factor M06.09 ; Primary generalized (osteo)arthritis M15.0 ; Other detention (current) drug therapy Z79.899 ; Encounter for screening for nutritional disorder Z13.21 and Encounter for screening for respiratory tuberculosis Z11.1 [facility] [address], [address] [place], [place] [id number] 06/11/2024 Marianne Hartig Rheumatoid arthritis of multiple sites without rheumatoid factor M06.09 ; Primary generalized (osteo)arthritis M15.0 ; Other intermodal customer service (current) drug therapy Z79.899 ; Encounter for screening for nutritional disorder Z13.21 ; Encounter for screening for respiratory tuberculosis Z11.1 and Encounter for other specified special examinations Z01.89 [facility] [address], [address] [place], [place] [id number] 05/07/2024 Marianne Hartig [facility] [address] [place] [address], [facility] [address] [place], [place] [id number] 08/06/2024 Marianne Hartig Rheumatoid arthritis of multiple sites without rheumatoid factor M06.09 ; Primary generalized (osteo)arthritis M15.0 ; Other intermodal customer service (current) drug therapy Z79.899 ; Encounter for screening for nutritional disorder Z13.21 ; Encounter for screening for respiratory tuberculosis Z11.1 ; Encounter for other specified special examinations Z01.89 and Lymphadenopathy R59.1 [facility] [address] [place] [address], [address] [place], [place] [id number] 09/03/2024 Marianne Hartig Rheumatoid arthritis of multiple sites without rheumatoid factor M06.09 ; Primary generalized (osteo)arthritis M15.0 ; Other intermodal customer service (current) drug therapy Z79.899 ; Encounter for screening for nutritional disorder Z13.21 ; Encounter for screening for respiratory tuberculosis Z11.1 ; Encounter for other specified special examinations Z01.89 and Lymphadenopathy R59.1 [facility] [address] [place] [address], [address] [id number] 10/02/2024 Marianne Velasquez [facility] [address] [place] [address], [address] [id number] 01/01/2025 Marianne Hartig Rheumatoid arthritis of multiple sites without rheumatoid factor M06.09 ; Primary generalized (osteo)arthritis M15.0 ; Other detention (current) drug therapy Z79.899 ; Encounter for screening for nutritional disorder Z13.21 ; Encounter for screening for respiratory tuberculosis Z11.1 ; Encounter for other specified special examinations Z01.89 ; Lymphadenopathy R59.1 ; History of recent fall Z91.81 ; Acute bilateral low back pain without sciatica M54.50 and Dysuria R30.0 [facility] [address] [place] [address], [address] [id number] 03/07/2024 Josiane Pena [facility] [address] [place] [address], [address] [id number] 04/02/2024 Josiane Pena Primary generalized (osteo)arthritis M15.0 [facility] [address] [place] [address], [address] [id number] 06/17/2024 Akgun Jean [facility] [address], [address] [id number] 06/17/2024 Akgun Jean [facility] [address], [address] [id number] 07/02/2024 Akgun Jean Primary generalized (osteo)arthritis M15.0 [facility] [address], [address] [id number] 09/03/2024 Akgun Jean Primary generalized (osteo)arthritis M15.0 [facility] [address], [address] [id number] 10/02/2024 Akgun Jean Primary generalized (osteo)arthritis M15.0 [facility] [address], [address] [address] [id number] 12/24/2024 Akgun Jean [facility] [address], [address] [id number] 12/31/2024 Akgun Jean Primary generalized (osteo)arthritis M15.0 [facility] [address], [address] [id number] 01/30/2024 Akgun Jean [facility] [address], [address] [id number] 03/20/2024 Akgun Jean [facility] [address], [address] [id number] 04/04/2024 Akgun Jean [facility] [address], [address] [id number] 04/11/2024 Akgun Jean [facility] [address], [address] [id number] 04/13/2024 Akgun Jean [facility] [address] [facility], [address] [id number] 07/26/2024 Akgun Jean [facility] [address], [address] [id number] 08/22/2024 Akgun Jean [facility] [address] [facility], [address] [place], [place] [id number] 09/19/2024 Josiane Pena ASSESSMENTS Encounter Date Diagnosis Assessment Notes Treatment Notes Treatment Clinical Notes Section Notes 01/12/2024 Rheumatoid arthritis of multiple sites without rheumatoid factor (ICD-10 - M06.09) 01/26/2024 Rheumatoid arthritis of multiple sites without rheumatoid factor (ICD-10 - M06.09) 01/26/2024 Screening for tuberculosis (ICD-10 - Z11.1) 03/12/2024 Other intermodal customer service (current) drug therapy (ICD-10 - Z79.899) 03/12/2024 Rheumatoid arthritis of multiple sites without rheumatoid factor (ICD-10 - M06.09) 04/26/2024 Rheumatoid arthritis of multiple sites without rheumatoid factor (ICD-10 - M06.09) 05/28/2024 Other detention (current) drug therapy (ICD-10 - Z79.899) 05/28/2024 Rheumatoid arthritis of multiple sites without rheumatoid factor (ICD-10 - M06.09) 06/25/2024 Rheumatoid arthritis of multiple sites without rheumatoid factor (ICD-10 - M06.09) 07/23/2024 Rheumatoid arthritis of multiple sites without rheumatoid factor (ICD-10 - M06.09) 08/20/2024 Rheumatoid arthritis of multiple sites without rheumatoid factor (ICD-10 - M06.09) 09/17/2024 Rheumatoid arthritis of multiple sites without rheumatoid factor (ICD-10 - M06.09) 09/17/2024 Encounter for screening for respiratory tuberculosis (ICD-10 - Z11.1) 10/15/2024 Rheumatoid arthritis of multiple sites without rheumatoid factor (ICD-10 - M06.09) 11/14/2024 Rheumatoid arthritis of multiple sites without rheumatoid factor (ICD-10 - M06.09) 12/12/2024 Other detention (current) drug therapy (ICD-10 - Z79.899) 12/12/2024 Rheumatoid arthritis of multiple sites without rheumatoid factor (ICD-10 - M06.09) 03/07/2024 Rheumatoid arthritis of multiple sites without rheumatoid factor (ICD-10 - M06.09) Continue Orencia infusions to see if that is more effective for RA. She is referred to [facility] due to tremors in her left hand and arm. , Labwork drawn to evaluate disease process and to monitor any adverse effects of medications. 03/07/2024 Primary generalized (osteo)arthritis (ICD-10 - M15.0) Continue Orencia infusions to see if that is more effective for RA. She is referred to [facility] due to tremors in her left hand and arm. , Labwork drawn to evaluate disease process and to monitor any adverse effects of medications. 06/11/2024 Rheumatoid arthritis of multiple sites without rheumatoid factor (ICD-10 - M06.09) Continue Orencia infusions to see if that is more effective for RA. We discussed trying SSZ for RA to help bridge Orencia doses. She is educated on the medication. She is referred to [facility] due to tremors in her left hand and arm. , Labwork drawn to evaluate disease process and to monitor any tryadverse effects of medications. 06/11/2024 Primary generalized (osteo)arthritis (ICD-10 - M15.0) Continue Orencia infusions to see if that is more effective for RA. We discussed trying SSZ for RA to help bridge Orencia doses. She is educated on the medication. She is referred to [facility] due to tremors in her left hand and arm. , Labwork drawn to evaluate disease process and to monitor any tryadverse effects of medications. 08/06/2024 Rheumatoid arthritis of multiple sites without rheumatoid factor (ICD-10 - M06.09) Continue Orencia infusions to see if that is more effective for RA. Restart SSZ for RA. She is referred to [facility] due to tremors in her left hand and arm. , Labwork drawn to evaluate disease process and to monitor any tryadverse effects of medications. 08/06/2024 Primary generalized (osteo)arthritis (ICD-10 - M15.0) Continue Orencia infusions to see if that is more effective for RA. Restart SSZ for RA. She is referred to [facility] due to tremors in her left hand and arm. , Labwork drawn to evaluate disease process and to monitor any tryadverse effects of medications. 09/03/2024 Rheumatoid arthritis of multiple sites without rheumatoid factor (ICD-10 - M06.09) Continue SSZ 1 tab and Orencia infusions to see if that is more effective for RA. She is referred to [facility] due to tremors in her left hand and arm. , Labwork drawn to evaluate disease process and to monitor any tryadverse effects of medications. 01/01/2025 Rheumatoid arthritis of multiple sites without rheumatoid factor (ICD-10 - M06.09) Stop SSZ 1 tab and stop Orencia infusions for RA. She is referred to [facility] due to tremors in her left hand and arm. , Labwork drawn to evaluate disease process and to monitor any try adverse effects of medications. 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 She is referred to [facility] due to tremors in her left hand and arm. , Labwork drawn to evaluate disease process and to monitor any adverse effects of medications. 06/11/2024 Other intermodal customer service (current) drug therapy (ICD-10 - Z79.899) Continue Orencia infusions to see if that is more effective for RA. We discussed trying SSZ for RA to help bridge Orencia doses. She is educated on the medication. She is referred to [facility] due to tremors in her left hand and arm. , Labwork drawn to evaluate disease process and to monitor any tryadverse effects of medications. 08/06/2024 Other intermodal customer service (current) drug therapy (ICD-10 - Z79.899) Continue Orencia infusions to see if that is more effective for RA. Restart SSZ for RA. She is referred to [facility] due to tremors in her left hand and arm. , Labwork drawn to evaluate disease process and to monitor any tryadverse effects of medications. 09/03/2024 Primary generalized (osteo)arthritis (ICD-10 - M15.0) Continue SSZ 1 tab and Orencia infusions to see if that is more effective for RA. She is referred to [facility] due to tremors in her left hand and arm. , Labwork drawn to evaluate disease process and to monitor any tryadverse effects of medications. 01/01/2025 Primary generalized (osteo)arthritis (ICD-10 - M15.0) Stop SSZ 1 tab and stop Orencia infusions for RA. She is referred to [facility] due to tremors in her left hand and arm. , Labwork drawn to evaluate disease process and to monitor any try adverse effects of medications. 09/17/2024 Other intermodal customer service (current) drug therapy (ICD-10 - Z79.899) 03/07/2024 Encounter for screening for nutritional disorder (ICD-10 - Z13.21) Continue Orencia infusions to see if that is more effective for RA. She is referred to [facility] due to tremors in her left hand and arm. , Labwork drawn to evaluate disease process and to monitor any adverse effects of medications. 06/11/2024 Encounter for screening for nutritional disorder (ICD-10 - Z13.21) Continue Orencia infusions to see if that is more effective for RA. We discussed trying SSZ for RA to help bridge Orencia doses. She is educated on the medication. She is referred to [facility] due to tremors in her left hand and arm. , Labwork drawn to evaluate disease process and to monitor any tryadverse effects of medications. 08/06/2024 Encounter for screening for nutritional disorder (ICD-10 - Z13.21) Continue Orencia infusions to see if that is more effective for RA. Restart SSZ for RA. She is referred to [facility] due to tremors in her left hand and arm. , Labwork drawn to evaluate disease process and to monitor any tryadverse effects of medications. 09/03/2024 Other detention (current) drug therapy (ICD-10 - Z79.899) Continue SSZ 1 tab and Orencia infusions to see if that is more effective for RA. She is referred to [facility] due to tremors in her left hand and arm. , Labwork drawn to evaluate disease process and to monitor any tryadverse effects of medications. 01/01/2025 Other intermodal customer service (current) drug therapy (ICD-10 - Z79.899) Stop SSZ 1 tab and stop Orencia infusions for RA. She is referred to [facility] due to tremors in her left hand and arm. , Labwork drawn to evaluate disease process and to monitor any try adverse effects of medications. 03/07/2024 Encounter for screening for respiratory tuberculosis (ICD-10 - Z11.1) Continue Orencia infusions to see if that is more effective for RA. She is referred to [facility] due to tremors in her left hand and arm. , Labwork drawn to evaluate disease process and to monitor any adverse effects of medications. 06/11/2024 Encounter for screening for respiratory tuberculosis (ICD-10 - Z11.1) Continue Orencia infusions to see if that is more effective for RA. We discussed trying SSZ for RA to help bridge Orencia doses. She is educated on the medication. She is referred to [facility] due to tremors in her left hand and arm. , Labwork drawn to evaluate disease process and to monitor any tryadverse effects of medications. 08/06/2024 Encounter for screening for respiratory tuberculosis (ICD-10 - Z11.1) Continue Orencia infusions to see if that is more effective for RA. Restart SSZ for RA. She is referred to [facility] due to tremors in her left hand and arm. , Labwork drawn to evaluate disease process and to monitor any tryadverse effects of medications. 09/03/2024 Encounter for screening for nutritional disorder (ICD-10 - Z13.21) Continue SSZ 1 tab and Orencia infusions to see if that is more effective for RA. She is referred to [facility] due to tremors in her left hand and arm. , Labwork drawn to evaluate disease process and to monitor any tryadverse effects of medications. 01/01/2025 Encounter for screening for nutritional disorder (ICD-10 - Z13.21) Stop SSZ 1 tab and stop Orencia infusions for RA. She is referred to [facility] due to tremors in her left hand and arm. , Labwork drawn to evaluate disease process and to monitor any try adverse effects of medications. 06/11/2024 Encounter for other specified special examinations (ICD-10 - Z01.89) Continue Orencia infusions to see if that is more effective for RA. We discussed trying SSZ for RA to help bridge Orencia doses. She is educated on the medication. She is referred to [facility] due to tremors in her left hand and arm. , Labwork drawn to evaluate disease process and to monitor any tryadverse effects of medications. 08/06/2024 Encounter for other specified special examinations (ICD-10 - Z01.89) Continue Orencia infusions to see if that is more effective for RA. Restart SSZ for RA. She is referred to [facility] due to tremors in her left hand and arm. , Labwork drawn to evaluate disease process and to monitor any tryadverse effects of medications. 09/03/2024 Encounter for screening for respiratory tuberculosis (ICD-10 - Z11.1) Continue SSZ 1 tab and Orencia infusions to see if that is more effective for RA. She is referred to [facility] due to tremors in her left hand and arm. , Labwork drawn to evaluate disease process and to monitor any tryadverse effects of medications. 01/01/2025 Encounter for screening for respiratory tuberculosis (ICD-10 - Z11.1) Stop SSZ 1 tab and stop Orencia infusions for RA. She is referred to [facility] due to tremors in her left hand and arm. , Labwork drawn to evaluate disease process and to monitor any try adverse effects of medications. 08/06/2024 Lymphadenopathy (ICD-10 - R59.1) Continue Orencia infusions to see if that is more effective for RA. Restart SSZ for RA. She is referred to [facility] due to tremors in her left hand and arm. , Labwork drawn to evaluate disease process and to monitor any tryadverse effects of medications. 09/03/2024 Encounter for other specified special examinations (ICD-10 - Z01.89) Continue SSZ 1 tab and Orencia infusions to see if that is more effective for RA. She is referred to [facility] due to tremors in her left hand and arm. , Labwork drawn to evaluate disease process and to monitor any tryadverse effects of medications. 01/01/2025 Encounter for other specified special examinations (ICD-10 - Z01.89) Stop SSZ 1 tab and stop Orencia infusions for RA. She is referred to [facility] due to tremors in her left hand and arm. , Labwork drawn to evaluate disease process and to monitor any try adverse effects of medications. 09/03/2024 Lymphadenopathy (ICD-10 - R59.1) Continue SSZ 1 tab and Orencia infusions to see if that is more effective for RA. She is referred to [facility] due to tremors in her left hand and arm. , Labwork drawn to evaluate disease process and to monitor any tryadverse effects of medications. 01/01/2025 Lymphadenopathy (ICD-10 - R59.1) Stop SSZ 1 tab and stop Orencia infusions for RA. She is referred to [facility] due to tremors in her left hand and arm. , Labwork drawn to evaluate disease process and to monitor any try adverse effects of medications. 01/01/2025 History of recent fall (ICD-10 - Z91.81) Stop SSZ 1 tab and stop Orencia infusions for RA. She is referred to [facility] due to tremors in her left hand and arm. , Labwork drawn to evaluate disease process and to monitor any try adverse effects of medications. 01/01/2025 Acute bilateral low back pain without sciatica (ICD-10 - M54.50) Stop SSZ 1 tab and stop Orencia infusions for RA. She is referred to [facility] due to tremors in her left hand and arm. , Labwork drawn to evaluate disease process and to monitor any try adverse effects of medications. 01/01/2025 Dysuria (ICD-10 - R30.0) Stop SSZ 1 tab and stop Orencia infusions for RA. She is referred to [facility] due to tremors in her left hand and arm. , Labwork drawn to evaluate disease process and to monitor any try adverse effects of medications. PLAN OF TREATMENT Pending Test Test Name Order Date X ray : Spines, lumbar- outside order AST (SGOT) 10/13/2020 AST (SGOT) 03/07/2024 Creatinine, Serum 10/13/2020 Creatinine, Serum 03/07/2024 ALT (SGPT) 10/13/2020 ALT (SGPT) 03/07/2024 CBC With Differential/Platelet CBC With Differential/Platelet 4 Sed Rate - Westergren 03/07/2024 Sed Rate - W[place]gren 10/13/2020 C-Reactive Protein, Quant 10/13/2020 C-Reactive Protein, Quant 03/07/2024 VITAMIN D, 25-HYDROXY, LC/MS/MS 03/07/20 24 AST (IH) 02/09/2021 ALT (IH) 02/09/2021 Creatinine (IH) 02/09/2021 X ray : Spines, cervical- outside order 05/03/2016 Barium Swallow 12/28/2021 MRI OF HANDS 01/16/2009 PPD 07/16/2013 X ray : Shoulder, right- outside order 0 03/23/2021 X ray : Foot Left- outside order 022 X ray : Foot Right- outside order 2021 Lab slip given 10/13/2020 -Xray slip given 01/01/2025 -Xray slip given 03/23/2021 -Xray slip given 05/03/2016 -Xray slip given 09/28/2021 Urinalysis, Complete 01/01/2025 DS DNA ANTIBODY, CRITHIDIA, IFA W/REFL Q UEST 05/25/2021 Next Appt Details Provider Name:Josiane Pena, 02:00:00 PM, [address], [address], [place], [place], [phone], Provider Name:Marianne Velasquez, 01/30/2025 03:40:00 PM, [address], [facility] [address], [place], [place], [phone], Insurance Providers Payer Name Payer Address Payer Phone Subscriber Number Group Number Insured Name Patient Relationship to Insured Coverage Start Date Coverage End Date [employer] [address] [place] [address] [id number] NIRU CEJA Spouse - patient is the spouse of the insured 1 MEDICAL (GENERAL) HISTORY Medical History History ICD Code osteoarthritis Surgical History Surgery Date(Month/Year) Right knee replacement 08/2010 left knee replacement 05/2010 gallbladder removal 04/2006 right hand carpal desmond 08/2000 left knee 03/2000 right knee 02/2000
== END 2025-01-03 15:08 | disposition home or self-care (01) ==
LOC: CHSLAB 15:12
PROVIDERS: PCP Family Medicine
DX: M54.50 Low back pain, unspecified (principal); Z91.81 History of falling; Z98.890 Other specified postprocedural states
CPT/HCPCS: 72100; 81001

== ENCOUNTER 2025-01-09 15:07 | Outpatient (CLI) | payer OTHER, SELFPAY ==
--- OUTSIDE RECORDS SUMMARY | 2024-10-02 10:20 | XMS_ITS ---
Author Organization [facility] Address [address] [place], [place] [phone] Care Team Providers Care Decision Support Manager Name Role Phone GERALD DIXON MD Primary Care Provider Unav ailable Josiane Pena Unavailable [phone] ABEBE DIXON MD Unavailable Unavailab Marianne De Anda Unavailable [phone] ALLERGIES No Known Allergies MEDICATIONS Medication SIG (Take, Route, Frequency, Duration) Notes Start Date End Date Status sulfaSALAzine 500 mg 1 tab(s) orally 2 t imes a day for 30 day(s) 06/18/2024 Active Xiidra 5% 1 gtt eye as directed Active Tylenol [facility] Caplet as directed orally prn Active pravastatin 20 mg 1 tab(s) orally once a day (at bedtime) Active Orencia 250 mg as directed intraven ously every 4 weeks Active Mounjaro Active glimepiride 1 mg 1 tab(s) orally once a day Active Vitamin D2 (obsolete) 50,000 intl units 1 cap(s) orally once a week for 90 days Active traMADol 50 mg 2 tab(s) orally 3 ti mes a day as needed for 30 days 07/02/2024 Active Vitamin B12 1000 mcg 1 tab(s) orally once a day Active gabapentin 300 mg 1 cap(s) orally 3 ti mes a day for 90 days Active SOCIAL HISTORY Tobacco Use: Social History Observation Description Date Details (start date - stop date) Never Smoker NA - NA Sex Assigned At : Social History Observation Description Sex Assigned At Unknown Tobacco Use: Question Answer Notes Smoking Status nonsmoker Encounters Encounter Location Date Provider [facility] [address], [address] [place], [place] [phone] 10/02/2024 Marianne Velasquez PLAN OF TREATMENT Next Appt Details Provider Name:Marianne Eva, 01/30/2025 03:40:00 PM, [address], [address], [place], [place], [phone],
--- OUTSIDE RECORDS SUMMARY | 2024-10-15 08:45 | XMS_ITS ---
Author Organization [facility] Address [address] [place], [place] [phone] Care Team Providers Care Metal Hardener Name Role Phone GERALD DIXON MD Primary Care Provider Unav ailable Josiane Pena Unavailable [phone] ABEBE DIXON MD Unavailable Unavailab le REASON FOR VISIT Orencia 3v MEDICATIONS Medication SIG (Take, Route, Frequency, Duration) Notes Start Date End Date Status Tylenol Arth[facility] Caplet as directed orally prn Active Xiidra 5% 1 gtt eye as directed Active gabapentin 300 mg 1 cap(s) orally 3 ti mes a day for 90 days Active sulfaSALAzine 500 mg 1 tab(s) orally 2 t imes a day for 30 day(s) 06/18/2024 Active Vitamin D2 (obsolete) 50,000 intl units 1 cap(s) orally once a week for 90 days Active Orencia 250 mg as directed intraven ously every 4 weeks Active pravastatin 20 mg 1 tab(s) orally once a day (at bedtime) Active Vitamin B12 1000 mcg 1 tab(s) orally once a day Active traMADol 50 mg 2 tab(s) orally 3 ti mes a day as needed for 30 days 07/02/2024 Active glimepiride 1 mg 1 tab(s) orally once a day Active Mounjaro Active VITAL SIGNS BMI 33.47 kg/m2 10/15/2024 Blood pressure systolic 108 mm Hg 10/16/19 25 Blood pressure diastolic 70 mm Hg 025 Heart Rate 85 /min 10/15/2024 Height 64 in 10/15/2024 Temperature 97.7 degrees Fahrenheit 10/16/19 25 Weight 195 lbs 10/15/2024 Encounters Encounter Location Date Provider Diagnosis [facility] [address], [address] [place], [place] [phone] 10/15/2024 Josiane Jean Rheumatoid arthritis of multiple sites without rheumatoid factor M06.09 ASSESSMENTS Encounter Date Diagnosis Assessment Notes Treatment Notes Treatment Clinical Notes Section Notes 10/15/2024 Rheumatoid arthritis of multiple sites without rheumatoid factor (ICD-10 - M06.09) PLAN OF TREATMENT Next Appt Details Provider Name:Marianne Velasquez, 01/30/2025 03:40:00 PM, [address], [address], [place], [place], [phone], Procedure Notes * Category Sub-Category Detail Notes Orencia Infusion Treatment Number: 11+ PPD negative Infection/Date/Tx denies Live Vaccines denies Recent Procedures denies Previous Reactions denies Premedications/Time/Route none Number of Vials 3 VIALS 750MG DOSE ( 250MG VIAL X 3) Orencia Lot Number: [id number] [id number] 12/2026 IV Site Left Hand Site Appearance without, redness, sw elling Size of catheter 24 gauge Type of catheter introcan, peripheral # of Attempts 1 Deaccessed catheter intact, camille ssing applied Labs drawn none due Infusion Teaching/Discharge Reviewed written dis charge instructions yes Patient voiced understanding yes Ready for discharge yes Ride Needed yes-spouse Tolerated infusion yes Time of Discharge 1425 Total Infused 100mL Infusion Flowsheet 1 Temp 97.7 Time 1330 Pulse 85 Respiration Rate 18 Blood Pressure 108/70 IV Site NA Patient State oriented, alert Rate ml/hr pump Infusion Flowsheet 2 Time 1345 infusi on started IV Site WNL, intact Patient State alert, oriented Rate ml/hr 200ml/hr Infusion Flowsheet 3 Temp 97.6 Time 1415 infusion comple te Pulse 68 Respiration Rate 18 Blood Pressure 106/70 IV Site WNL Patient State alert, oriented Rate ml/hr discontinued
--- OUTSIDE RECORDS SUMMARY | 2024-11-14 09:00 | XMS_ITS ---
Author Organization [facility] Address [address] [place], [place] [phone] Care Team Providers Care Delivery Nurse Name Role Phone GERALD DIXON MD Primary Care Provider Unav ailable JeanJosiane coronado Unavailable [phone] ABEBE DIXON MD Unavailable Unavailab le REASON [...] Inc[facility] [address], [address] [place], [place] [phone] 11/14/2024 Josiane Pena Rheumatoid arthritis of multiple sites without rheumatoid factor M06.09 ASSESSMENTS Encounter Date Diagnosis Assessment Notes Treatment Notes Treatment Clinical Notes Section Notes 11/14/2024 Rheumatoid arthritis of multiple sites without rheumatoid factor (ICD-10 - M06.09) PLAN OF TREATMENT Next Appt Details Provider Name:Marianne Velasquez, 01/30/2025 03:40:00 PM, [address], [address], [place], [place], [phone], Procedure Notes * Category Sub-Category Detail Notes Orencia Infusion Treatment Number: 12+ PPD negative Infection/Date/Tx denies Live Vaccines denies Recent Procedures denies Previous Reactions denies Premedications/Time/Route none Number of Vials 3 VIALS 750MG DOSE ( 250MG VIAL X 3) Orencia Lot Number: [id number] EXP 12/2026 IV Site Right Hand Site [...]
--- OUTSIDE RECORDS SUMMARY | 2024-12-12 09:15 | XMS_ITS ---
Author Organization [facility] [employer] Address [address] [place], [place] [phone] Care Team Providers Care General Administrator Name Role Phone GERALD DIXON MD Primary Care Provider Unav ailable JeanJjgun Unavailable [phone] ABEBE DIXON MD Unavailable Unavailab le RESULTS Component Value Reference Range Notes AST (SGOT) Reviewed date:12/13/2024 11:15:50 AM Interpretation: Performing Lab:[address], Phone - [phone], [facility] Notes/Report: AST (SGOT) 35 0-40 IU/L Specimen received hemolyzed. Value may be increased by hemolysis. Clinical correlation indicated. Creatinine, Serum Reviewed date:12/13/2024 11:15:50 AM Interpretation: Performing Lab:[address], [address] [place] [address], Phone - [phone], [facility] Notes/Report: Creatinine 0.65 0.57-1.00 mg/dL eGFR 97 >59 mL/min/1.73 ALT (SGPT) Reviewed date:12/13/2024 11:15:50 AM Interpretation: Performing Lab:[address], [address] [place] [address], Phone - [phone], [facility] Notes/Report: ALT (SGPT) 11 0-32 IU/L CBC With Differential/Platel et Reviewed date:12/13/2024 11:15:50 AM Interpretation: Performing [facility] [address] [facility], Phone - [phone], Director - [facility] Notes/Report: WBC 6.2 3.4-10.8 x10E3/uL RBC 4.21 3.77-5.28 x10E6/uL Hemoglobin 13.2 11.1-15.9 g/dL Hematocrit 40.4 34.0-46.6 % MCV 96 79-97 fL MCH 31.4 26.6-33.0 pg MCHC 32.7 31.5-35.7 g/dL RDW 12.1 11.7-15.4 % Platelets 249 150-450 x10E3/uL Neutrophils 48 Not Estab. % Lymphs 41 Not Estab. % Monocytes 9 Not Estab. % Eos 1 Not Estab. % Basos 1 Not Estab. % Immature Cells Neutrophils (Absolute) 3.0 1.4-7.0 x10E3/uL Lymphs (Absolute) 2.5 0.7-3.1 x10E3/uL Monocytes(Absolute) 0.5 0.1-0.9 x10E3/uL Eos (Absolute) 0.1 0.0-0.4 x10E3/uL Baso (Absolute) 0.0 0.0-0.2 x10E3/uL Immature Granulocytes 0 Not Estab. % Immature Grans (Abs) 0.0 0.0-0.1 x10E3/uL NRBC Hematology Comments: Sed Rate - Westergren Reviewed date:12/13/2024 11:15:50 AM Interpretation: Performing Lab:[facility] [address] [facility], Phone - [phone], Director - [facility] Notes/Report: Sedimentation Rate-Westergren 33 0-40 mm/hr REASON FOR VISIT Orencia 3 v MEDICATIONS Medication SIG (Take, Route, Frequency, Duration) Notes Start Date End Date Status Xiidra 5% 1 gtt eye as directed Active Orencia 250 mg 750mg/kg intravenous ly every 4 weeks Active pravastatin 20 mg 1 tab(s) orally once a day (at bedtime) Active sulfaSALAzine 500 mg 1 tab(s) orally 2 t imes a day for 30 day(s) 06/18/2024 Active Tylenol Arthritis Caplet as directed orally prn Active glimepiride 1 mg 1 tab(s) orally once a day Active Mounjaro Active Vitamin B12 1000 mcg 1 tab(s) orally once a day Active traMADol 50 mg 2 tab(s) orally 3 ti mes a day as needed for 30 days 07/02/2024 Active Vitamin D2 (obsolete) 50,000 intl units 1 cap(s) orally once a week for 90 days Active gabapentin 300 mg 1 cap(s) orally 3 ti mes a day for 90 days Active VITAL SIGNS BMI 32.95 kg/m2 12/12/2024 Blood pressure systolic 117 mm Hg 12/13/19 25 Blood pressure diastolic 67 mm Hg 025 Heart Rate 74 /min 12/12/2024 Height 64 in 12/12/2024 Temperature 97.7 degrees Fahrenheit 12/13/19 25 Weight 192 lbs 12/12/2024 Encounters Encounter Location Date Provider Diagnosis [facility] 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 (ICD-10 - Z79.899) PLAN OF TREATMENT Next Appt Details Provider Name:Marianne Velasquez, 01/30/2025 03:40:00 PM, [address] [facility], [address], [place], [place], [phone], Procedure Notes * Category Sub-Category Detail Notes Orencia Infusion Treatment Number: 13+ PPD negative Infection/Date/Tx denies Live Vaccines denies Recent Procedures denies Previous Reactions denies Premedications/Time/Route none Number of Vials 3 VIALS 750MG DOSE ( 250MG VIAL X 3) Orencia Lot Number: [id number] EXP 12/2026 (3-250mg) IV Site Left Hand Site Appearance without, redness, sw elling Size of catheter 24 gauge Type of catheter introcan, peripheral # of Attempts 1 Deaccessed catheter intact, camille ssing applied Labs drawn yes Infusion Teaching/Discharge Reviewed written dis charge instructions yes Patient voiced understanding yes Ready for discharge yes Ride Needed yes, Tolerated infusion yes Time of Discharge 1515 Total Infused 100mL Infusion Flowsheet 1 Temp 97.7 Time 1400 Pulse 74 Respiration Rate 18 Blood Pressure 117/67 IV Site NA Patient State oriented, alert Rate ml/hr pump Infusion Flowsheet 2 Time 1430 , infu marifer started IV Site WNL, intact Patient State alert, oriented Rate ml/hr 200ml/hr Infusion Flowsheet 3 Temp 97.7 Time 1500 , infusion comp lete Pulse 71 Respiration Rate 18 Blood Pressure 107/65 IV Site WNL Patient State alert, oriented Rate ml/hr discontinued
--- OUTSIDE RECORDS SUMMARY | 2024-12-24 09:41 | XMS_ITS ---
Author Organization [facility] [employer] [facility] Address [address] [place], [place] [phone] Care Team Providers Care Senior Information Systems Architect Name Role Phone GERALD DIXON MD Primary Care Provider Unav ailable Josiane Pena Unavailable [phone] ABEBE DIXON MD Unavailable Unavailab le REASON FOR VISIT flu vac? Encounters Encounter Location Date Provider Diagnosis [facility] [address], [address] [place], [place] [phone] 12/24/2024 Josiane Pena PLAN OF TREATMENT Next Appt Details Provider Name:Marianne Velasquez, 01/30/2025 03:40:00 PM, [address], [address], [place], [place], [phone],
--- OUTSIDE RECORDS SUMMARY | 2024-12-31 03:59 | XMS_ITS ---
Author Organization [facility] [employer] [facility] [employer] Address [address] [place], [place] [phone] Care Team Providers Care Menhaden Vessel Pilot Name Role Phone GERALD DIXON MD Primary Care Provider Unav ailable Josiane Pena Unavailable [phone] ABEBE DIXON MD Unavailable Unavailab le MEDICATIONS Medication SIG (Take, Route, Fr equency, Duration) Notes Start Date End Date Status traMADol 50 mg 2 tab(s) orally 3 ti mes a day as needed for 30 days 12/31/2024 Active Encounters Encounter Location Date Provider [facility] [address], [address] [place], [place] [phone] 12/31/2024 Akgun Jean Primary generalized (osteo)arthritis M15.0 ASSESSMENTS Encounter Date Diagnosis Assessment Notes Treatment Notes Treatment Clinical Notes Section Notes 12/31/2024 Primary generalized (osteo)arthritis (ICD-10 - M15.0) PLAN OF TREATMENT Medication Medication Name Sig Start Date Stop Date Notes traMADol 50 mg 2 tab(s) orally 3 ti mes a day as needed for 30 days 12/31/2024 Next Appt Details Provider Name:Marianne Velasquez, 01/30/2025 03:40:00 PM, [address], [address], [place], [place], [phone],
--- OUTSIDE RECORDS SUMMARY | 2025-01-01 11:00 | XMS_ITS ---
Author Organization [facility] 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 Name Role Phone GERALD DIXON MD Primary Care Provider Unav ailable Josiane Pena Unavailable [phone] ABEBE DIXON MD Unavailable Unavailab Marianne De Anda Unavailable [phone] ALLERGIES No Known Allergies MEDICATIONS Medication SIG [...] Encounter Location Date Provider Diagnosis [facility], [address] [place], [place] [id number] 01/01/2025 Marianne Velasquez Rheumatoid arthritis of multiple sites without rheumatoid factor M06.09 ; Primary generalized (osteo)arthritis M15.0 ; Other assisted (current) drug therapy Z79.899 ; Acute bilateral low back pain without sciatica M54.50 ; Dysuria R30.0 ; Encounter for screening for nutritional disorder Z13.21 ; Encounter for screening for respiratory tuberculosis Z11.1 ; Encounter for other specified special examinations Z01.89 ; Lymphadenopathy R59.1 and History of recent fall Z91.81 ASSESSMENTS Encounter Date Diagnosis Assessment Notes Treatment Notes Treatment Clinical Notes Section Notes 01/01/2025 Rheumatoid arthritis of multiple sites without rheumatoid factor (ICD-10 - M06.09) Stop SSZ 1 tab and stop Orencia infusions for RA. She is referred to [facility] due to tremors in her left hand and arm. , Labwork drawn to evaluate disease process and to monitor any try adverse effects of medications. 01/01/2025 Primary generalized (osteo)arthritis (ICD-10 - M15.0) Stop SSZ 1 tab and stop Orencia infusions for RA. She is referred to [facility] due to tremors in her left hand and arm. , Labwork drawn to evaluate disease process and to monitor any try adverse effects of medications. 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 She is referred to [facility] due to tremors in her left hand and arm. , Labwork drawn to evaluate disease process and to monitor any try adverse effects of medications. 01/01/2025 Acute bilateral low back pain without sciatica (ICD-10 - M54.50) Stop SSZ 1 tab and stop Orencia infusions for RA. She is referred to [facility] due to tremors in her left hand and arm. , Labwork drawn to evaluate disease process and to monitor any try adverse effects of medications. 01/01/2025 Dysuria (ICD-10 - R30.0) Stop SSZ 1 tab and stop Orencia infusions for RA. She is referred to [facility] due to tremors in her left hand and arm. , Labwork drawn to evaluate disease process and to monitor any try adverse effects of medications. 01/01/2025 Encounter for screening for nutritional disorder (ICD-10 - Z13.21) Stop SSZ 1 tab and stop Orencia infusions for RA. She is referred to [facility] due to tremors in her left hand and arm. , Labwork drawn to evaluate disease process and to monitor any try adverse effects of medications. 01/01/2025 Encounter for screening for respiratory tuberculosis (ICD-10 - Z11.1) Stop SSZ 1 tab and stop Orencia infusions for RA. She is referred to [facility] due to tremors in her left hand and arm. , Labwork drawn to evaluate disease process and to monitor any try adverse effects of medications. 01/01/2025 Encounter for other specified special examinations (ICD-10 - Z01.89) Stop SSZ 1 tab and stop Orencia infusions for RA. She is referred to [facility] due to tremors in her left hand and arm. , Labwork drawn to evaluate disease process and to monitor any try adverse effects of medications. 01/01/2025 Lymphadenopathy (ICD-10 - R59.1) Stop SSZ 1 tab and stop Orencia infusions for RA. She is referred to [facility] due to tremors in her left hand and arm. , Labwork drawn to evaluate disease process and to monitor any try adverse effects of medications. 01/01/2025 History of recent fall (ICD-10 - Z91.81) Stop SSZ 1 tab and stop Orencia infusions for RA. She is referred to [facility] due to tremors in her left hand and arm. , Labwork drawn to evaluate disease process and to monitor any try adverse effects of medications. PLAN OF TREATMENT Pending Test Test Name Order Date X ray : Spines, lumbar- outside order -Xray slip given 01/01/2025 Urinalysis, Complete 01/01/2025 Next Appt Details Follow Up: 4 Weeks, Reason: Provider Name:Marianne Velasquez, 01/30/2025 03:40:00 PM, [address], [address], [place], [place], [id number], Progress Notes * Examination Category Sub-Category Detail [...] MTPs. 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 History and Physical Notes * HPI (History of Present Illness) Category Sub-Category Detail Notes Category Not es Rheumatoid Arthritis Joint pain Patient is here for a follow up for treatment of RA and OA. She is tolerating Orencia infusions. She reports minor flares. SHe flares about a week before her infusion. She has a bunion and hammer toes in her left foot. Math Interventionist refused to due surgery due to osteopenia. She denies any fever or infections. She was found to have bulging cervical disc. She was started PT and referred to Dr. Lim, pain management. He gave her a epidural injection and that helped. She continue to have a tremor in her left arm. Neurologist was unsure the cause. She never looked into [facility]. SSZ caused hot flashes. [...]
--- OUTSIDE RECORDS SUMMARY | 2025-01-03 12:41 | XMS_ITS ---
Author Organization [facility] Address [address] [place], [place] [id number] Care Team Providers Care Bilingual Student Tutor Name Role Phone GERALD DIXON MD Primary Care Provider Unav ailable Josiane Pena Unavailable [phone] ABEBE DIXON MD Unavailable Unavailab le REASON FOR VISIT pending pa* Encounters Encounter Location Date Provider Diagnosis [facility] [address], [address] [place], [place] [id number] 01/03/2025 Josiane Pena PLAN OF TREATMENT Next Appt Details Provider Name:Marianne Velasquez, 01/30/2025 03:40:00 PM, [address], [address], [place], [place], [id number],
--- OUTSIDE RECORDS SUMMARY | 2025-01-04 07:25 | XMS_ITS ---
Author Organization [facility] Address [address] [place], [place] [phone] Care Team Providers Care Cream Separator Operator Name Role Phone GERALD DIXON MD Primary Care Provider Unav ailable Josiane Pena Unavailable [phone] ABEBE DIXON MD Unavailable Unavailab le REASON FOR VISIT Test results Encounters Encounter Location Date Provider Diagnosis [facility] [address], [address] [place], [place] [id number] 01/04/2025 Josiane Pena PLAN OF TREATMENT Next Appt Details Provider Name:Marianne Velasquez, 01/30/2025 03:40:00 PM, [address], [address], [place], [place], [phone],
--- OUTSIDE RECORDS SUMMARY | 2025-01-08 10:42 | XMS_ITS ---
Author Organization [facility] Address [address] [place], [place] [phone] Care Team Providers Care Traffic Court Magistrate Name Role Phone GERALD DIXON MD Primary Care Provider Unav ailable Josiane Pena Unavailable [phone] ABEBE DIXON MD Unavailab le REASON FOR VISIT new meds and x ray Encounters Encounter Location Date Provider Diagnosis [facility] [address], [address] [place], [place] [id number] 01/08/2025 Josiane Pena PLAN OF TREATMENT Next Appt Details Provider Name:Marianne Velasquez, 01/30/2025 03:40:00 PM, [address], [address], [place], [place], [phone],
--- OUTSIDE RECORDS SUMMARY | 2025-01-09 19:27 | XMS_ITS | Clinical Summary ---
Author Organization [facility] Address [address] [place] [address] Phone Care Team Providers Care Outpatient Coder Name Role Phone Alf Burnette MD Primary Care Provider [phone] Allergies No known active allergies Medications cetirizine [...] on file Legal Sex Female 5:59 AM LITHOSTRIPPER Gender Identity Not on file Sexual Orientation Not on file Last Filed Vital Signs Vital Sign Reading Time Taken Comments Blood Pressure 135/86 04/29/2014 10:30 AM LITHOSTRIPPER Pulse 92 04/29/2014 10:30 AM LITHOSTRIPPER Temperature 36.6 C (97.9 F) 04/29/2014 10:30 AM LITHOSTRIPPER Respiratory Rate 20 04/29/2014 10:30 AM LITHOSTRIPPER Oxygen Saturation 97% 09/17/2010 8:00 AM CDT Inhaled Oxygen Concentration - - Weight 106.1 kg (234 lb) 04/29/2014 10:30 AM LITHOSTRIPPER Height 162.6 cm (5' 4) 04/29/2014 10:30 AM LITHOSTRIPPER Body Mass Index 40.17 04/29/2014 10:30 AM LITHOSTRIPPER Plan of Treatment Health Maintenance Due Date [...] series) 2033 Medical Devices Implanted Type [employer] Device Identifier Shelf Expiration Date Model / Serial / Lot Log 13745 - Cement - 1 - Cement [place] G-Hv 40g [id number] Implanted:Qty: 1 on 06/02/2010 at [facility] Cement Left: Knee [employer] 11/20/2011 [id number] / / [id number] Log [id number] - Cement - 1 - Cement [place] G-Hv 40g [id number] Implanted:Qty: 1 on 09/15/2010 at [facility] Cement Right: Knee [employer] 01/20/2012 [id number] / / [id number] Log 40819 - Biomet [place]angu[place] Complete Knee System - 1 - Patella 3peg Series A [id number] Implanted:Qty: 1 on 06/02/2010 at [facility] Knee Left: Knee [employer] 03/21/2015 [id number] / / [id number] Log 00508 - [employer]angu[employer] Complete Knee System - 1 - Plate Tib Cocr Finned 67mm [id number] Implanted:Qty: 1 on 06/02/2010 at [facility] Knee Left: Knee [employer] 01/20/2020 [id number] / / [id number] Log 34224 - [employer] Complete Knee System - 1 - Fem Vng Open Box 62.5mm Lt [id number] Implanted:Qty: 1 on 06/02/2010 at [facility] Knee Left: Knee [employer] 04/21/2020 [id number] / / [id number] Log 44455 - [employer] Complete Knee System - 1 - Bearing Tib Vngrd Epoly Ps [id number] Implanted:Qty: 1 on 06/02/2010 at [facility] Knee Left: Knee [employer] 09/18/2014 [id number] / / [id number] Description:Epoly bearing is not part of total knee cap pricing,will be charged separately Log [id number] - [employer]angu[employer] Complete Knee System - 1 - Bearing Tib Vngrd Epoly Ps [id number] Implanted:Qty: 1 on 09/15/2010 at [facility] Knee Right: Knee [employer] 02/18/2015 [id number] / / [id number] Description:Epoly bearing is not part of total knee cap pricing,will be charged separately. Log [id number] - [employer] Complete Knee System - 1 - Patella 3peg Series A [id number] Implanted:Qty: 1 on 09/15/2010 at [facility] Knee Right: Knee [employer] 06/20/2015 [id number] / / [id number] Log [id number] - [employer] Complete Knee System - 1 - Plate Tib Cocr Finned 71mm [id number] Implanted:Qty: 1 on 09/15/2010 at [facility] Knee Right: Knee [employer] 06/19/2020 [id number] / / [id number] Log [id number] - [employer] Complete Knee System - 1 - Comp Fem Vng Ps Opn Bx Rt [id number] Implanted:Qty: 1 on 09/15/2010 at [facility] Knee Right: Knee [employer] 06/19/2020 [id number] / / [id number] Femoral Pegs Implanted:Qty: 1 on 06/02/2010 at [facility] Left: Knee [employer] 04/21/2020 [id number] / / [id number] Description:Femoral pegs are not part of total knee cap pricing,will be charged separately. Femoral Pegs Implanted:Qty: 1 on 09/15/2010 at [facility] Right: Knee [employer] 08/19/2020 [id number] / / [id number] Description:Femoral pegs are not part of total knee cap pricing,will be charged separately. 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
--- OUTSIDE RECORDS SUMMARY | 2025-01-09 19:29 | XMS_ITS | Patient Health Record ---
Author Organization [facility] Address [address] [place], [place] [id number] Care Team Providers Care Director Of Scientific Research Name Role Phone GERALD DIXON MD Primary Care Provider Unav ailable Josiane Pena Unavailable [phone] ABEBE DIXON MD Unavailable Unavailab Marianne De Anda Unavailable [phone] ALLERGIES No Known Allergies RESULTS Component Value Reference Range Notes QUANTIFERON(R)-TB GOLD PLUS, 1 TUBE Reviewed date:02/01/2024 10:23:33 AM Interpretation: [facility], [address] [place] [address], Phone - [phone], Director - PhDRicchirichii Notes/Report: QuantiFERON Incubation Incubation [...] (SGOT) Reviewed date:03/15/2024 08:59:57 AM Interpretation: Performing Lab:[address], Phone - [phone], [facility] Notes/Report: AST (SGOT) 15 0-40 IU/L Creatinine, Serum Reviewed date:03/15/2024 08:59:57 AM Interpretation: Performing Lab:[address], Phone - [phone], [facility] Notes/Report: Creatinine 0.76 0.57-1.00 mg/dL eGFR 87 >59 mL/min/1.73 ALT (SGPT) Reviewed date:03/15/2024 08:59:57 AM Interpretation: Performing Lab:[address], Phone - [phone], Director - [facility] Notes/Report: ALT (SGPT) 13 0-32 IU/L CBC With Differential/Platel et Reviewed date:03/15/2024 08:59:57 AM Interpretation: Performing Lab:[address], Phone - [phone], [facility] Notes/Report: WBC 6.5 3.4-10.8 x10E3/uL RBC 4.84 [...] Westergren Reviewed date:03/15/2024 08:59:57 AM Interpretation: Performing Lab:[facility] [address] [place] [address], Phone - [phone], Director - [facility] Notes/Report: Sedimentation Rate-Westergren 28 0-40 mm/hr C-Reactive Protein, Quant Reviewed date:03/15/2024 08:59:57 AM Interpretation: Performing Lab:[facility] [place], [address] [place] [address], Phone - [phone], Director - [facility] Notes/Report: C-Reactive Protein, Quant 8 0-10 mg/L VITAMIN D, 25-HYDROXY, LC/MS /MS Reviewed date:03/15/2024 08:59:57 AM Interpretation: Performing Lab:[facility] [place], [address] [place] [address], Phone - [phone], Director - [facility] Notes/Report: Vitamin D, 25-Hydroxy 56.7 30.0-100.0 ng/mL Vitamin D deficiency has been defined by the Rosser of Medicine and an Endocrine Society practice guideline as a level of serum 25-OH vitamin D less than 20 ng/mL (1,2). The Endocrine Society went on to further define vitamin D insufficiency as a level between 21 and 29 ng/mL (2). 1. IOM ([place]er of Medicine). 2010. Dietary reference intakes for calcium and D. [place]: The National Academies Press. 2. Sultana MF, Paloma [place], Jerome-Dany HAWKINS, et al. Evaluation, treatment, and prevention of vitamin D deficiency: an Endocrine Society clinical practice guideline. JCEM. 2010; 96(7):1911-30. AST (SGOT) Reviewed date:05/30/2024 09:04:22 AM Interpretation: Performing Lab:[facility] [address] [place] [address], Phone - [phone], Director [facility] Notes/Report: AST (SGOT) 15 0-40 IU/L Creatinine, Serum Reviewed date:05/30/2024 09:04:22 AM Interpretation: Performing Lab:[address], Phone - [phone], [facility] Notes/Report: Creatinine 0.63 0.57-1.00 mg/dL eGFR 98 >59 mL/min/1.73 ALT (SGPT) Reviewed date:05/30/2024 09:04:22 AM Interpretation: Performing Lab:[address], Phone - [phone], Director - [facility] Notes/Report: ALT (SGPT) 9 0-32 IU/L CBC With Differential/Platel et Reviewed date:05/30/2024 09:04:23 AM Interpretation: Performing Lab:[address], Phone - [phone], Director - [facility] Notes/Report: WBC 7.9 3.4-10.8 x10E3/uL RBC 4.65 [...] Griggs Reviewed date:05/30/2024 09:04:23 AM Interpretation: Performing Lab:[address], Phone - [phone], Director - [facility] Notes/Report: Sedimentation Rate-Westergren 44 0-40 mm/hr Hep B Surface Ab qualatative Reviewed date:06/12/2024 09:57:02 AM Interpretation: Performing Lab:[address], Phone - [phone], Director - [facility] Notes/Report: Hep B Surface Ab, Qual Non Reactive Non Reactive: Not immune to HBV infection. Equivocal: Unable to determine if anti-HBs is present at levels consistent with immunity. Reactive: Anti-HBs concentration detected at greater than 10 mIU/mL. Individual is considered to be immune to infection with HBV. Acute Hepatitis Reviewed date:06/12/2024 09:57:02 AM Interpretation: Performing Lab:[address], Phone - [phone], Director - [facility] Notes/Report: Hep A Ab, IgM Negative Negative [...] Griggs Reviewed date:08/09/2024 08:50:38 PM Interpretation: Performing Lab:[address], Phone - [phone], Director - [facility] Notes/Report: Sedimentation Rate-Westergren 31 0-40 mm/hr JULIET Panel (JULIET+NETTIE+Scl 70+Sj Ivy+SjoSSB) Reviewed date:08/09/2024 08:50:38 PM Interpretation: Performing Lab:[address], Phone - [phone], Director - [facility] Notes/Report: JULIET by IFA Rfx Titer/Pattern Negative Negative <1:80 Borderline 1:80 Positive >1:80 ICAP nomenclature: AC-0 For more information about Hep-2 cell patterns use ANApatterns.org, the official website for the International Consensus on Antinuclear Antibody (JULIET) Patterns (ICAP). ORTHO NURSE Antibodies <0.2 0.0-0.9 AI Shankar Antibodies <0.2 0.0-0.9 AI Antiscleroderma-70 Antibodies <0.2 0.0-0.9 AI Sjogren's Anti-SS-A <0.2 0.0-0.9 AI Sjogren's Anti-SS-B <0.2 0.0-0.9 AI IMMUNOFIXATION, SERUM free l ight chains rm temp Reviewed date:08/09/2024 08:50:38 PM Interpretation: Performing Lab:[facility], Phone - [phone], Director - [facility] Notes/Report: Free [employer] Lt Chains,S 19.3 3.3-19.4 mg/L Free Lambda Lt Chains,S 13.9 5.7-26.3 mg/L [employer]/Lambda Ratio,S 1.39 0.26-1.65 SPEPW/Interpretation w/refle x Reviewed date:08/09/2024 08:50:38 PM Interpretation: Performing Lab:[facility] [address] [facility], [place], Phone - [phone], Director - [facility] Notes/Report: Protein, Total 6.8 6.0-8.5 g/dL Albumin 3.8 2.9-4.4 g/dL Vbqjs-3-Aclwizgc 0.2 0.0-0.4 g/dL Scxab-0-Dgvnfvbi 0.8 0.4-1.0 g/dL Beta Globulin 0.9 0.7-1.3 g/dL Gamma Globulin 1.2 0.4-1.8 g/dL M-Marin Not Observed Not Observed g/dL Globulin, Total 3.0 2.2-3.9 g/dL A/G Ratio 1.3 0.7-1.7 Please note: Protein electrophoresis scan will follow via computer, mail, or cardiopulmonary technician and eeg tech delivery. Interpretation(See Below) The SPE pattern appears unremarkable. Evidence of monoclonal protein is not apparent. PDF . DS DNA-CRITHIDIA IFA W/REFLE X TO [facility] Reviewed date:08/09/2024 08:50:38 PM Interpretation: Performing Lab:[address], Phone - [phone], [facility] Notes/Report: dsDNA Crithidia luciliae IFA Negative Negative PDF Report Reviewed date:08/09/2024 08:50:38 PM Interpretation: Performing Lab:[address], Phone - [phone], [facility] Notes/Report: PDF Report1 LCLS AST (SGOT) Reviewed date:09/19/2024 08:11:56 AM Interpretation: Performing Lab:[address], Phone - [phone], [facility] Notes/Report: AST (SGOT) 14 0-40 IU/L Creatinine, Serum Reviewed date:09/19/2024 08:11:56 AM Interpretation: Performing Lab:[address], Phone - [phone], [facility] - [facility] Notes/Report: Creatinine 0.62 0.57-1.00 mg/dL eGFR 98 >59 mL/min/1.73 ALT (SGPT) Reviewed date:09/19/2024 08:11:56 AM Interpretation: Performing Lab:[address], Phone - [phone], Director [facility] Notes/Report: ALT (SGPT) 9 0-32 IU/L CBC With Differential/Platel et Reviewed date:09/19/2024 08:11:56 AM Interpretation: Performing Lab:[address], Phone - [phone], [facility] - [facility] Notes/Report: WBC 6.4 3.4-10.8 x10E3/uL RBC 4.48 [...] qualatative Reviewed date:09/19/2024 08:11:56 AM Interpretation: Performing Lab:[facility] [place], [address] [facility], Phone - [phone], Director - [facility] Notes/Report: Hep B Surface Ab, Qual Non Reactive Non Reactive: Not immune to HBV infection. Equivocal: Unable to determine if anti-HBs is present at levels consistent with immunity. Reactive: Anti-HBs concentration detected at greater than 10 mIU/mL. Individual is considered to be immune to infection with HBV. QUANTIFERON(R)-TB GOLD PLUS, 1 TUBE Reviewed date:09/19/2024 08:11:56 AM Interpretation: Performing Lab:[facility] [place], [address] [facility], Phone - [phone], Director - [facility] Notes/Report: QuantiFERON Incubation Incubation performed. QuantiFERON-TB Gold [...] Hepatitis Reviewed date:09/19/2024 08:11:56 AM Interpretation: Performing Lab:[address], Phone - [phone], [facility] Notes/Report: Hep A Ab, IgM Negative Negative [...] (SGOT) Reviewed date:12/13/2024 11:15:50 AM Interpretation: Performing Lab:[address], Phone - [phone], Director - [facility] Notes/Report: AST (SGOT) 35 0-40 IU/L Specimen received hemolyzed. Value may be increased by hemolysis. Clinical correlation indicated. Creatinine, Serum Reviewed date:12/13/2024 11:15:50 AM Interpretation: Performing Lab:[address], Phone - [phone], [facility] Notes/Report: Creatinine 0.65 0.57-1.00 mg/dL eGFR 97 >59 mL/min/1.73 ALT (SGPT) Reviewed date:12/13/2024 11:15:50 AM Interpretation: Performing Lab:[address], Phone - [phone], [facility] Notes/Report: ALT (SGPT) 11 0-32 IU/L CBC With Differential/Platel et Reviewed date:12/13/2024 11:15:50 AM Interpretation: Performing Lab:[address], Phone - [phone], [facility] - [facility] Notes/Report: WBC 6.2 3.4-10.8 x10E3/uL RBC 4.21 [...] Reviewed date:12/13/2024 11:15:50 AM Interpretation: Performing Lab:[facility] [place], [address] [facility], Phone - [phone], Director - [facility] Notes/Report: Sedimentation Rate-Indu 33 0-40 mm/hr REASON FOR REFERRAL Reason orencia Diagnosis 1 Rheumatoid arthritis of multiple sites without rheumatoid factor (M06.09) Referral Organization [facility] Referring Provider First Name Josiane Referring Provider Last Name Jean Referring Provider Speciality Rheumatolo gy Referred Organization [facility] Referred Provider Josiane Pena Referred Address [address] 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 483503079 Problem Cervicalgia (M54.2) Active confirmed 61007497 Problem Rheumatoid arthritis of multiple sites without rheumatoid factor (M06.09) Active confirmed 834557303 Problem Primary generalized (osteo)arthritis (M15.0) Active confirmed 343828382 Problem snf current use of non-steroidal anti-inflammatori es (NSAID) (Z79.1) Active confirmed 558828883 Problem Non-smoker (Z78.9) Active confirmed 6475997 Problem Paresthesia (R20.2) Active confirmed Paresthesia (77366698) Problem Facial rash (R21) Active confirmed 2718 08959 Problem Oropharyngeal dysphagia (R13.12) Active confirmed 55588166 VITAL SIGNS Heart Rate 92 /min 01/01/2025 Temperature 97.7 degrees Fahrenheit 12/12/2024 Blood pressure diastolic 64 mm Hg 01/01/2025 Height 64 in 01/01/2025 Blood pressure systolic 99 mm Hg 01/01/2025 Weight 192 lbs 01/01/2025 BMI 32.95 kg/m2 01/01/2025 Encounters Encounter Location Date Provider Diagnosis [facility] [address], [facility] [address] [place], [place] [id number] 01/12/2024 Akgun Jean Rheumatoid arthritis of multiple sites without rheumatoid factor M06.09 [facility] [address], [address] [place], [place] [id number] 01/26/2024 Akgun Jean Rheumatoid arthritis of multiple sites without rheumatoid factor M06.09 and Screening for tuberculosis Z11.1 [facility] [address], [address] [place], [place] [id number] 02/23/2024 Akgun Jean [facility] [address], [address] [place], [place] [id number] 03/12/2024 Akgun Jean Rheumatoid arthritis of multiple sites without rheumatoid factor M06.09 and 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 truck driver (current) drug therapy Z79.899 [facility] [address], [address] [place], [place] [id number] 04/09/2024 Akgun Jean [facility] [address], [address] [place], [place] [id number] 05/07/2024 Akgun Jean [facility] [address], [address] [place] [id number] 04/26/2024 Akgun Jean Rheumatoid arthritis of multiple sites without rheumatoid factor M06.09 [facility] [address], [address] [place], [place] [id number] 05/28/2024 Akgun Jean Rheumatoid arthritis of multiple sites without rheumatoid factor M06.09 and Other care home (current) drug therapy Z79.899 [facility] [address], [address] [place], [place] [id number] 06/25/2024 Akgun Jean Rheumatoid arthritis of multiple sites without rheumatoid factor M06.09 [facility] [address], [address] [place], [place] [id number] 07/23/2024 Akgun Jean Rheumatoid arthritis of multiple sites without rheumatoid factor M06.09 [facility] [address], [facility] [address] [place], [place] [id number] 08/20/2024 Akgun Jean Rheumatoid arthritis of multiple sites without rheumatoid factor M06.09 [facility] [address], [address] [place] [id number] 09/17/2024 Akgun Jean Rheumatoid arthritis of multiple sites without rheumatoid factor M06.09 ; Encounter for screening for respiratory tuberculosis Z11.1 ; Encounter for other specified special examinations Z01.89 and 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 truck driver (current) drug therapy Z79.899 [facility] [address], [address] [place] [id number] 10/15/2024 Akgun Jean Rheumatoid arthritis of multiple sites without rheumatoid factor M06.09 [facility] [address], [address] [place], [place] [id number] 11/14/2024 Akgun Jean Rheumatoid arthritis of multiple sites without rheumatoid factor M06.09 [facility] [address], [address] [place] [id number] 12/12/2024 Akgun Jean Rheumatoid arthritis of multiple sites without rheumatoid factor M06.09 and 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 truck driver (current) drug therapy Z79.899 [facility] [address], [address] [place] [id number] 03/07/2024 Marianne Hartig Rheumatoid arthritis of multiple sites without rheumatoid factor M06.09 ; Primary generalized (osteo)arthritis M15.0 ; Other care home (current) drug therapy Z79.899 ; Encounter for screening for nutritional disorder Z13.21 and Encounter for screening for respiratory tuberculosis Z11.1 [facility] [address], [address] [place], [place] [id number] 06/11/2024 Marianne Hartig Rheumatoid arthritis of multiple sites without rheumatoid factor M06.09 ; Primary generalized (osteo)arthritis M15.0 ; 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 truck driver (current) drug therapy Z79.899 ; Encounter for screening for nutritional disorder Z13.21 ; Encounter for screening for respiratory tuberculosis Z11.1 and Encounter for other specified special examinations Z01.89 [facility] [address], [address] [place], [place] [id number] 05/07/2024 Marianne Hartig [facility] [address] [place] [address], [facility] [address] [place], [place] [id number] 08/06/2024 Marianne Hartig Rheumatoid arthritis of multiple sites without rheumatoid factor M06.09 ; Primary generalized (osteo)arthritis M15.0 ; 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 truck driver (current) drug therapy Z79.899 ; Encounter for screening for nutritional disorder Z13.21 ; Encounter for screening for respiratory tuberculosis Z11.1 ; Encounter for other specified special examinations Z01.89 and Lymphadenopathy R59.1 [facility] [address] [place] [address], [address] [place] [id number] 09/03/2024 Marianne Hartig Rheumatoid arthritis of multiple sites without rheumatoid factor M06.09 ; Primary generalized (osteo)arthritis M15.0 ; 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 truck driver (current) drug therapy Z79.899 ; Encounter for screening for nutritional disorder Z13.21 ; Encounter for screening for respiratory tuberculosis Z11.1 ; Encounter for other specified special examinations Z01.89 and Lymphadenopathy R59.1 [facility] [address] [place] [address], [address] [id number] 10/02/2024 Marianne Velasquez [facility] [address] [place] [address], [address] [id number] 01/01/2025 Marianne Hartlidia Rheumatoid arthritis of multiple sites without rheumatoid factor M06.09 ; Primary generalized (osteo)arthritis M15.0 ; Other care home (current) drug therapy Z79.899 ; Acute bilateral low back pain without sciatica M54.50 ; Dysuria R30.0 ; Encounter for screening for nutritional disorder Z13.21 ; Encounter for screening for respiratory tuberculosis Z11.1 ; Encounter for other specified special examinations Z01.89 ; Lymphadenopathy R59.1 and History of recent fall Z91.81 [facility] [address] [place] [address], [address] [id number] 03/07/2024 Josiane Pena [facility] [address] [place] [address], [address] [id number] 04/02/2024 Josiane Pena Primary generalized (osteo)arthritis M15.0 [facility] [address] [place] [address], [address] [id number] 06/17/2024 Akgun Jean [facility] [address] [facility], [address] [id number] 06/17/2024 Akgun Jean [facility] [address] [facility], [address] [id number] 07/02/2024 Akgun Jean Primary generalized (osteo)arthritis M15.0 [facility] [address], [address] [id number] 09/03/2024 Akgun Jean Primary generalized (osteo)arthritis M15.0 [facility] [address] [facility], [address] [id number] 10/02/2024 Akgun Jean Primary generalized (osteo)arthritis M15.0 [facility] [address], [address] [id number] 12/24/2024 Akgun Jean [facility] [address] [facility], [address] [id number] 12/31/2024 Akgun Jean Primary generalized (osteo)arthritis M15.0 [facility] [address] [facility], [address] [id number] 01/03/2025 Akgun Jean [facility] [address] [facility], [address] [id number] 01/04/2025 Akgun Jean [facility] [address], [address] [id number] 01/30/2024 Akgun Jean [facility] [address] [facility], [address] [id number] 03/20/2024 Akgun Jean [facility] [address], [address] [id number] 04/04/2024 Akgun Jean [facility] [address] [facility], [address] [id number] 04/11/2024 Akgun Jean [facility] [address] [facility], [address] [id number] 04/13/2024 Akgun Jean [facility] [address] [facility], [facility] [address] [place], [place] [id number] 07/26/2024 Josiane Pena [facility], [address] [facility], [facility] [address] [place], [place] [id number] 08/22/2024 Josiane Pena [facility], [address] [facility], [facility] [address] [place], [place] [id number] 09/19/2024 Josiane Pena [facility], [address] [place] [address], [address] [id number] 01/08/2025 Josiane Pena ASSESSMENTS Encounter Date Diagnosis Assessment Notes Treatment Notes Treatment Clinical Notes Section Notes 01/12/2024 Rheumatoid arthritis of multiple sites without rheumatoid factor (ICD-10 - M06.09) 01/26/2024 Rheumatoid arthritis of multiple sites without rheumatoid factor (ICD-10 - M06.09) 01/26/2024 Screening for tuberculosis (ICD-10 - Z11.1) 03/12/2024 Other care home (current) drug therapy (ICD-10 - Z79.899) 03/12/2024 Rheumatoid arthritis of multiple sites without rheumatoid factor (ICD-10 - M06.09) 04/26/2024 Rheumatoid arthritis of multiple sites without rheumatoid factor (ICD-10 - M06.09) 05/28/2024 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 She is referred to [facility] due to tremors in her left hand and arm. , Labwork drawn to evaluate disease process and to monitor any adverse effects of medications. 03/07/2024 Primary generalized (osteo)arthritis (ICD-10 - M15.0) Continue Orencia infusions to see if that is more effective for RA. She is referred to [facility] due to tremors in her left hand [...] She is referred to [facility] due to tremors in her left hand [...] She is referred to [facility] due to tremors in her left hand and arm. , Labwork drawn to evaluate disease process and to monitor any tryadverse effects of medications. 08/06/2024 Rheumatoid arthritis of multiple sites without rheumatoid factor (ICD-10 - M06.09) Continue Orencia infusions to see if that is more effective for RA. Restart SSZ for RA. She is referred to [facility] due to tremors in her left hand and arm. , Labwork drawn to evaluate disease process and to monitor any tryadverse effects of medications. 08/06/2024 Primary generalized (osteo)arthritis (ICD-10 - M15.0) Continue Orencia infusions to see if that is more effective for RA. Restart SSZ for RA. She is referred to [facility] due to tremors in her left hand and arm. , Labwork drawn to evaluate disease process and to monitor any tryadverse effects of medications. 09/03/2024 Rheumatoid arthritis of multiple sites without rheumatoid factor (ICD-10 - M06.09) Continue SSZ 1 tab and Orencia infusions to see if that is more effective for RA. She is referred to [facility] due to tremors in her left hand and arm. , Labwork drawn to evaluate disease process and to monitor any tryadverse effects of medications. 01/01/2025 Rheumatoid arthritis of multiple sites without rheumatoid factor (ICD-10 - M06.09) Stop SSZ 1 tab and stop Orencia infusions for RA. She is referred to [facility] due to tremors in her left hand and arm. , Labwork drawn to evaluate disease process and to monitor any try adverse effects of medications. 01/01/2025 Primary generalized (osteo)arthritis (ICD-10 - M15.0) Stop SSZ 1 tab and stop Orencia infusions for RA. 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 She is referred to [facility] due to tremors in her left hand and arm. , Labwork drawn to evaluate disease process and to monitor any adverse effects of medications. 06/11/2024 Other care home (current) drug therapy (ICD-10 - Z79.899) Continue Orencia infusions to see if that is more effective for RA. We discussed trying SSZ for RA to help bridge Orencia doses. She is educated on the medication. She is referred to [facility] due to tremors in her left hand and arm. , Labwork drawn to evaluate disease process and to monitor any tryadverse effects of medications. 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 Restart SSZ for RA. She is referred to [facility] due to tremors in her left hand and arm. , Labwork drawn to evaluate disease process and to monitor any tryadverse effects of medications. 09/03/2024 Primary generalized (osteo)arthritis (ICD-10 - M15.0) Continue SSZ 1 tab and Orencia infusions to see if that is more effective for RA. She is referred to [facility] due to tremors in her left hand and arm. , Labwork drawn to evaluate disease process and to monitor any tryadverse effects of medications. 01/01/2025 Other care home (current) drug therapy (ICD-10 - Z79.899) Stop SSZ 1 tab and stop Orencia infusions for RA. She is referred to [facility] due to tremors in her left hand and arm. , Labwork drawn to evaluate disease process and to monitor any try adverse effects of medications. 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 She is referred to [facility] due to tremors in her left hand [...] She is referred to [facility] due to tremors in her left hand and arm. , Labwork drawn to evaluate disease process and to monitor any tryadverse effects of medications. 08/06/2024 Encounter for screening for nutritional disorder (ICD-10 - Z13.21) Continue Orencia infusions to see if that is more effective for RA. Restart SSZ for RA. She is referred to [facility] due to tremors in her left hand and arm. , Labwork drawn to evaluate disease process and to monitor any tryadverse effects of medications. 09/03/2024 Other care home (current) drug therapy (ICD-10 - Z79.899) Continue SSZ 1 tab and Orencia infusions to see if that is more effective for RA. She is referred to [facility] due to tremors in her left hand and arm. , Labwork drawn to evaluate disease process and to monitor any tryadverse effects of medications. 01/01/2025 Acute bilateral low back pain without sciatica (ICD-10 - M54.50) Stop SSZ 1 tab and stop Orencia infusions for RA. She is referred to [facility] due to tremors in her left hand and arm. , Labwork drawn to evaluate disease process and to monitor any try adverse effects of medications. 03/07/2024 Encounter for screening for respiratory tuberculosis (ICD-10 - Z11.1) Continue Orencia infusions to see if that is more effective for RA. She is referred to [facility] due to tremors in her left hand [...] She is referred to [facility] due to tremors in her left hand and arm. , Labwork drawn to evaluate disease process and to monitor any tryadverse effects of medications. 08/06/2024 Encounter for screening for respiratory tuberculosis (ICD-10 - Z11.1) Continue Orencia infusions to see if that is more effective for RA. Restart SSZ for RA. She is referred to [facility] due to tremors in her left hand and arm. , Labwork drawn to evaluate disease process and to monitor any tryadverse effects of medications. 09/03/2024 Encounter for screening for nutritional disorder (ICD-10 - Z13.21) Continue SSZ 1 tab and Orencia infusions to see if that is more effective for RA. She is referred to [facility] due to tremors in her left hand and arm. , Labwork drawn to evaluate disease process and to monitor any tryadverse effects of medications. 01/01/2025 Dysuria (ICD-10 - R30.0) Stop SSZ 1 tab and stop Orencia infusions for RA. She is referred to [facility] due to tremors in her left hand [...] She is referred to [facility] due to tremors in her left hand and arm. , Labwork drawn to evaluate disease process and to monitor any tryadverse effects of medications. 08/06/2024 Encounter for other specified special examinations (ICD-10 - Z01.89) Continue Orencia infusions to see if that is more effective for RA. Restart SSZ for RA. She is referred to [facility] due to tremors in her left hand and arm. , Labwork drawn to evaluate disease process and to monitor any tryadverse effects of medications. 09/03/2024 Encounter for screening for respiratory tuberculosis (ICD-10 - Z11.1) Continue SSZ 1 tab and Orencia infusions to see if that is more effective for RA. She is referred to [facility] due to tremors in her left hand and arm. , Labwork drawn to evaluate disease process and to monitor any tryadverse effects of medications. 01/01/2025 Encounter for screening for nutritional disorder (ICD-10 - Z13.21) Stop SSZ 1 tab and stop Orencia infusions for RA. She is referred to [facility] due to tremors in her left hand and arm. , Labwork drawn to evaluate disease process and to monitor any try adverse effects of medications. 08/06/2024 Lymphadenopathy (ICD-10 - R59.1) Continue Orencia infusions to see if that is more effective for RA. Restart SSZ for RA. She is referred to [facility] due to tremors in her left hand and arm. , Labwork drawn to evaluate disease process and to monitor any tryadverse effects of medications. 09/03/2024 Encounter for other specified special examinations (ICD-10 - Z01.89) Continue SSZ 1 tab and Orencia infusions to see if that is more effective for RA. She is referred to [facility] due to tremors in her left hand and arm. , Labwork drawn to evaluate disease process and to monitor any tryadverse effects of medications. 01/01/2025 Encounter for screening for respiratory tuberculosis (ICD-10 - Z11.1) Stop SSZ 1 tab and stop Orencia infusions for RA. She is referred to [facility] due to tremors in her left hand and arm. , Labwork drawn to evaluate disease process and to monitor any try adverse effects of medications. 09/03/2024 Lymphadenopathy (ICD-10 - R59.1) Continue SSZ 1 tab and Orencia infusions to see if that is more effective for RA. She is referred to [facility] due to tremors in her left hand and arm. , Labwork drawn to evaluate disease process and to monitor any tryadverse effects of medications. 01/01/2025 Encounter for other specified special examinations (ICD-10 - Z01.89) Stop SSZ 1 tab and stop Orencia infusions for RA. She is referred to [facility] due to tremors in her left hand and arm. , Labwork drawn to evaluate disease process and to monitor any try adverse effects of medications. 01/01/2025 Lymphadenopathy (ICD-10 - R59.1) Stop SSZ 1 tab and stop Orencia infusions for RA. She is referred to [facility] due to tremors in her left hand and arm. , Labwork drawn to evaluate disease process and to monitor any try adverse effects of medications. 01/01/2025 History of recent fall (ICD-10 - Z91.81) Stop SSZ 1 tab and stop Orencia infusions for RA. She is referred to [facility] due to tremors in her left hand [...] 03/07/2024 CBC With Differential/Platelet CBC With Differential/Platelet Sed Rate - [place] 03/07/2024 Sed Rate [...] Q UEST 05/25/2021 Next Appt Details Provider Name:Marianne Velasquez, 01/30/2025 03:40:00 PM, [address], [address], [place], [place], [id number], Insurance Providers Payer Name Payer Address Payer Phone Subscriber Number Group Number Insured Name Patient Relationship to Insured Coverage Start Date Coverage End Date [facility] [address] [place] [address] [id number] CEJA Spouse - patient is the spouse of the insured 1 MEDICAL (GENERAL) HISTORY Medical History History ICD Code osteoarthritis Surgical History Surgery Date(Month/Year) Right knee replacement 08/2010 left knee replacement 05/2010 gallbladder removal 04/2006 right hand carpal [place] 08/2000 left knee 03/2000 right knee 02/2000
== END 2025-01-09 15:08 | disposition home or self-care (01) ==
LOC: CHSLAB 15:09
PROVIDERS: PCP Family Medicine; Visit Provider Student in an Organized Health Care Education/Training Program
DX: N39.0 Urinary tract infection, site not specified (principal)
CPT/HCPCS: 87086